=== PATIENT | male | born 1965 | race Caucasian/White ===

== ENCOUNTER → 2016-05-05 | Outpatient (CLI) | payer MEDICARE, OTHER ==
[2016-05-05 09:29] LABS: Basophils % (A) 1 %; CHCM 32.6; Eosinophils # (A) 0.1 k/uL (0-0.7); Eosinophils % (A) 1 %; HCT 46.6 % (39.0-53.0); HDW 2.54; HGB 15.1 gm/dL (13.0-17.5); Luc # (Auto) 0.14; Luc % (Auto) 2; Lymphocytes # (A) 1.9 k/uL (1.0-4.8); Lymphocytes % (A) 33 %; MCH 30.9 pg (25.0-35.0); MCHC 32.3 g/dL (31.0-37.0); MCV 95.6 fL (80.0-100.0); Mean Platelet Volume 6.9; Monocytes # (A) 0.4 k/uL (0-1.0); Monocytes % (A) 7 %; Neutrophils # (A) 3.2 k/uL (1.3-7.7); Neutrophils % (A) 56 %; RBC 4.87 m/uL (4.30-5.90); WBC 5.7 k/uL (3.8-10.6); WBC (Perox) 6.02
[2016-05-05 10:12] LABS: Bilirubin, Delta 0.2 mg/dL (0.0-0.2); Total Bilirubin 0.5 mg/dL (0.2-1.3); Total Protein 7.4 g/dL (6.3-8.2)
[2016-05-05 12:14] LABS: Hemoglobin A1C 4.8 % (4.2-6.1)
== END | disposition home or self-care (01) ==
LOC: LABWHC1 09:03
PROVIDERS: ATTEND Psychiatry & Neurology Psychiatry
DX: T50.905A Adverse effect of unspecified drugs, medicaments and biological substances, initial encounter (principal)
CPT/HCPCS: 36415; 80061; 80076; 80164; 83036; 85025

== ENCOUNTER 2018-03-25 12:16 | Day surgery (SDC) | payer MEDICARE, OTHER ==
[2018-03-21 11:03] VITALS: BMI 23.8
[~2018-03-25 12:16] MED LIST: LACTATED RINGERS 1,000 ML IV SCH; LIDOCAINE 1% 20 ML VIAL (10MG/ML) FOR IV START INTRADERMA PRN
[2018-03-25 12:45] VITALS: RESP 16; TEMP 98
[2018-03-25] MEDS ORDERED: LIDOCAINE 1% 20 ML VIAL (10MG/ML) FOR IV START INTRADERMA ONE (12:53)
[2018-03-25] MEDS ORDERED: PROPOFOL 10 MG/ML 20 ML VIAL IV ONE (13:07)
[2018-03-25] MEDS ORDERED: LIDOCAINE 1% INJ 10MG/ML (20 ML MDV) ONE (13:07)
--- NOTE | 2018-03-25 14:00 | P.PCN ---
Date of Procedure: 03/25/18 Procedure(s) Performed: Procedures: 1. Esophagogastroduodenoscopy and biopsy. 2. Colonoscopy and polypectomy. Preoperative diagnosis: Epigastric pain and weight loss and screening for colon cancer. Postoperative diagnosis: 1. Hiatal hernia and short segments of Bear's esophagus. 2. Mild gastritis and duodenitis. 3. Mild sigmoid diverticulosis. 4. Proximal sigmoid polyp snared but no large polyps or cancer. Preparation: HalfLytely prep. Sedation: Was provided by anesthesia. Brief clinical history: The patient is a 52-year-old male with history of mental disadvantage and seizure disorder is scheduled for this evaluation because of epigastric pain and weight loss as well as for colon cancer screening age being his risk factor. Procedure: With the patient on his left lateral decubitus position and after informed consent and adequate sedation, I passed a Olympus-GIF H190 video upper endoscope through the cricopharyngeus down the esophagus. GE junction was irregular and started at around 38 cm from the incisors and the tubular esophagus continued for another 2 cm or so. Proximal to the GE junction there was no evidence of esophagitis. There were no strictures. There was a 1-2 cm hiatal hernia then the endoscope was advanced into the stomach which was insufflated with air and inspected in detail including the retroflex view in the cardia. There was some mottling and erythema in the antrum but no ulcers or erosions. Pyloric channel did not show any ulcers. Duodenal bulb, post bulbar area and descending duodenum showed some erythema but there were no ulcers, erosions or bleeding. Because of his symptoms, I obtained biopsies from the duodenum, antrum and esophagus including, in a separate container, the segment of Bear's esophagus to rule out dysplasia. The endoscope was then withdrawn and I proceeded to perform the colonoscopy. Perianal area did not show any fissures or fistulas. There were no masses felt on digital rectal examination. The Olympus CFH 190L video colonoscope was then inserted in the rectum in the usual fashion and advanced to the cecum. There were a few diverticular orifices seen scattered in the sigmoid but I saw no evidence of acute diverticulitis or strictures. In the proximal sigmoid there was a 1-1.5 cm polyp which I snared and retrieved by suction, but there were no large polyps or cancer. I retroflexed the endoscope in the rectum before the endoscope was withdrawn. The patient tolerated the procedure well. Plan: The patient and his sister who is his legal guardian with reassured. Will await pathology results. I anticipate repeating his upper endoscopy 2-3 years and anticipate repeating his colonoscopy in 3-5 years. He will follow up with you as planned.
[2018-03-25 14:47] VITALS: BP 147/89; PULSE 74
== END 2018-03-25 15:14 | disposition home or self-care (01) ==
LOC: ORWHC2ENDO 12:16 → EEVIPCON 12:25 → ORWHC2ENDO 15:14
DX: Z12.11 Encounter for screening for malignant neoplasm of colon (principal); K29.50 Unspecified chronic gastritis without bleeding; K22.70 Barrett's esophagus without dysplasia; D12.5 Benign neoplasm of sigmoid colon; K44.9 Diaphragmatic hernia without obstruction or gangrene; K29.80 Duodenitis without bleeding; K57.30 Diverticulosis of large intestine without perforation or abscess without bleeding; F79 Unspecified intellectual disabilities; G40.909 Epilepsy, unspecified, not intractable, without status epilepticus; F41.9 Anxiety disorder, unspecified; Z79.899 Other long term (current) drug therapy
CPT/HCPCS: 88305; 45385; 43239; J2001; J2704

== ENCOUNTER → 2018-06-26 | Outpatient (CLI) | payer MEDICARE, OTHER | END | disposition home or self-care (01) | LOC: LABWHC1 15:29 | PROVIDERS: ATTEND Family Medicine | DX: G40.909 Epilepsy, unspecified, not intractable, without status epilepticus (principal); R63.4 Abnormal weight loss | CPT/HCPCS: 36415; 80186 ==

== ENCOUNTER → 2018-12-26 | Outpatient (CLI) | payer MEDICARE, OTHER ==
[2018-12-26 09:09] LABS: Basophils % (A) 0 %; Eosinophils # (A) 0.1 k/uL (0-0.7); Eosinophils % (A) 2 %; HCT 47.1 % (39.0-53.0); HGB 15.5 gm/dL (13.0-17.5); Lymphocytes # (A) 1.7 k/uL (1.0-4.8); Lymphocytes % (A) 31 %; MCH 31.5 pg (25.0-35.0); MCHC 32.8 g/dL (31.0-37.0); MCV 96.1 fL (80.0-100.0); Mean Platelet Volume 5.7; Monocytes # (A) 0.4 k/uL (0-1.0); Monocytes % (A) 8 %; Neutrophils # (A) 3.1 k/uL (1.3-7.7); Neutrophils % (A) 57 %; Platelet Count 207 k/uL (150-450); RDW 12.9 % (11.5-15.5); WBC 5.4 k/uL (3.8-10.6)
[2018-12-26 16:56] LABS: ALT 34 U/L (10-49); AST 25 U/L (14-35); African American GFR (CKD) 99.1 (60.0-200.0); Albumin/Globulin Ratio 1.56 (1.60-3.17); Alkaline Phosphatase 114 U/L (41-126); Bilirubin, Conjugated <0.20 mg/dL (0.20-0.40); Chol/HDL Ratio 3.42; Cholesterol 195 mg/dL (0-200); Globulin 2.7 g/dL (1.6-3.3); Glucose 86 mg/dL (70-110); LDL Cholesterol,Calculated 122.4 mg/dL (0.0-131.0); Total Bilirubin 0.4 mg/dL (0.2-1.2); Total Protein 6.9 g/dL (6.2-8.2)
[2018-12-26 18:09] LABS: Hemoglobin A1C 4.7 % (4.0-6.0)
== END ==
LOC: LABWHC1 08:15
PROVIDERS: ATTEND Nurse Practitioner Family
DX: Z51.81 Encounter for therapeutic drug level monitoring (principal); Z79.899 Other long term (current) drug therapy
CPT/HCPCS: 36415; 80061; 80076; 80164; 82565; 82947; 83036; 84439; 84443; 84520; 85025

== ENCOUNTER 2019-04-01 22:51 | Emergency (ER) | payer MEDICARE, OTHER ==
[2019-04-01 23:07] VITALS: BP 121/85
--- NOTE | 2019-04-01 23:37 | XR ---
EXAMINATION TYPE: XR chest 2V DATE OF EXAM: 04/01/2019 COMPARISON: NONE HISTORY: Cough and fever TECHNIQUE: FINDINGS: Heart and mediastinum are normal. Lungs are clear. Diaphragm is normal. Bony thorax is inta ct. There is no sign of pleural effusion. IMPRESSION: No active cardiopulmonary disease. Normal heart.
--- NOTE | 2019-04-02 00:49 | ED ---
Fever HPI - General Chief Complaint: Fever Stated Complaint: Fever, URI Time Seen by Provider: 04/02/19 00:46 Source: patient, family Mode of arrival: ambulatory Limitations: no limitations, physical limitation - History of Present Illness Initial Comments: This patient's 53-year-old man who presents to be evaluated for nonproductive cough and fever that is been going on for approximately one day. History is from both the patient and his sister. The patient does live in an [facility] home, and staff there noted that over the past day he had been developing persistent nonproductive cough, as well as having fevers. The patient has had multiple sick contacts. Patient denies dyspnea, chest pain, head or neck pain. No vomiting or change in bowel movements or urination. MD Complaint: fever, other (Cough) Onset/Timin -: days(s) Temperature Source: oral Context: sick contacts Associated Symptoms: cough Treatments Prior to Arrival: none - Related Data Home Medications Medication Instructions Recorded Confirmed Divalproex [Depakote] 1,000 mg PO HS 07/22/14 03/21/18 Fesoterodine Fumarate [Toviaz] 8 mg PO DAILY 07/22/14 03/21/18 Phenytoin Sodium Extended 100 mg PO MOTUTHSA 07/22/14 03/21/18 [Dilantin] Phenytoin Sodium Extended 100 mg PO SUWEFR 07/22/14 03/21/18 [Dilantin] Propranolol [Inderal] 20 mg PO BID 07/22/14 03/21/18 Cetirizine HCl [Zyrtec] 10 mg PO DAILY 03/21/18 03/21/18 Divalproex Sodium [Depakote] 750 mg PO QAM 03/21/18 03/21/18 Fluticasone Nasal [place] [Flonase 2 spr EA NOSTRIL DAILY 03/21/18 03/21/18 Nasal [place]] Ziprasidone [Geodon] 60 mg PO BID 03/21/18 03/21/18 Omeprazole 40 mg PO DAILY 03/25/18 03/25/18 Previous Rx's Medication Instructions Recorded Oseltamivir [Tamiflu] 75 mg PO Q12HR #10 cap 04/02/19 Allergies Allergy/AdvReac Type Severity Reaction Status Date / Time No Known Allergies Allergy Verified 04/01/19 23:07 Review of Systems ROS Statement: Those systems with pertinent positive or pertinent negative responses have been documented in the HPI. ROS Other: All systems not noted in ROS Statement are negative. Constitutional: Reports: fever ENT: Denies: ear pain Respiratory: Reports: cough. Denies: dyspnea, wheezes Cardiovascular: Denies: chest pain, syncope Gastrointestinal: Denies: abdominal pain, nausea, vomiting, diarrhea Genitourinary: Denies: dysuria Musculoskeletal: Denies: back pain Skin: Denies: rash Neurological: Denies: headache Past Medical History Past Medical History: Seizure Disorder Additional Past Medical History / Comment(s): LAST KNOWN GRAND MAL SEIZURE 1999- SISTER STATES PT HAS "ABSENT SEIZURES". MENTALLY CHALLENGED History of Any Multi-Drug Resistant Organisms: None Reported Past Surgical History: Hernia Repair Additional Past Surgical History / Comment(s): EGD. BILAT CATARACT SX Past Anesthesia/Blood Transfusion Reactions: No Reported Reaction Past Psychological History: Anxiety Smoking Status: Never smoker Past Alcohol Use History: None Reported Past Drug Use History: None Reported - Past Family History Father Family Medical History: Cancer Mother Family Medical History: Cancer General Exam Limitations: no limitations, physical limitation General appearance: alert, in no apparent distress Head exam: Present: atraumatic, normocephalic Eye exam: Present: normal appearance, conjunctival injection. Absent: scleral icterus ENT exam: Present: normal oropharynx Neck exam: Present: full ROM. Absent: meningismus Respiratory exam: Present: normal lung sounds bilaterally. Absent: respiratory distress, wheezes, rales, rhonchi, stridor Cardiovascular Exam: Present: regular rate, normal rhythm, normal heart sounds. Absent: systolic murmur, diastolic murmur, rubs, gallop GI/Abdominal exam: Present: soft. Absent: distended, tenderness, guarding, rebound, rigid Extremities exam: Present: normal inspection, normal capillary refill. Absent: pedal edema Neurological exam: Present: alert Skin exam: Present: warm, dry, intact, normal color. Absent: rash Course Vital Signs 04/01/19 23:02 Temperature 99.4 F Pulse Rate 103 H Respiratory 26 H Rate Blood Pressure 121/85 Medical Decision Making - Lab Data Lab Results 04/01/19 Range/Units 23:01 Influenza Type A RNA Detected H (Not Detectd) Influenza Type B (PCR) Not Detected (Not Detectd) Disposition Clinical Impression: Influenza Disposition: HOME SELF-CARE Condition: Good Instructions (If sedation given, give patient instructions): Influenza (ED) Prescriptions: Oseltamivir [Tamiflu] 75 mg PO Q12HR #10 cap Is patient prescribed a controlled substance at d/c from ED?: No Referrals: Frida Quintanilla DO [Primary Care Provider] - 1-2 days
[2019-04-02 01:30] VITALS: PULSE 88; RESP 20; TEMP 101.8
[2019-04-02] MEDS: OSELTAMIVIR 75 MG CAP PO STA ×2 (01:33→01:34)
== END 2019-04-02 01:47 | disposition home or self-care (01) ==
LOC: EC 22:51
DX: J11.1 Influenza due to unidentified influenza virus with other respiratory manifestations (principal); G40.909 Epilepsy, unspecified, not intractable, without status epilepticus; F41.9 Anxiety disorder, unspecified; Z79.899 Other long term (current) drug therapy; Z20.9 Contact with and (suspected) exposure to unspecified communicable disease
CPT/HCPCS: 71046; 87502; 99283

== ENCOUNTER → 2019-09-18 | Outpatient (CLI) | payer MEDICARE, OTHER ==
[2019-09-18 10:00] LABS: Basophils % (A) 1 %; Eosinophils # (A) 0.2 k/uL (0-0.7); Eosinophils % (A) 3 %; HGB 15.1 gm/dL (13.0-17.5); Lymphocytes # (A) 1.7 k/uL (1.0-4.8); Lymphocytes % (A) 28 %; MCH 31.1 pg (25.0-35.0); Mean Platelet Volume 7.2; Monocytes # (A) 0.4 k/uL (0-1.0); Monocytes % (A) 6 %; Neutrophils # (A) 3.7 k/uL (1.3-7.7); Neutrophils % (A) 61 %; Platelet Count 204 k/uL (150-450); RBC 4.85 m/uL (4.30-5.90); RDW 12.8 % (11.5-15.5); WBC 6.1 k/uL (3.8-10.6)
[2019-09-18 16:35] LABS: ALT 34 U/L (10-49); AST 21 U/L (14-35); Albumin/Globulin Ratio 1.43 (1.60-3.17); Alkaline Phosphatase 102 U/L (41-126); Bilirubin, Conjugated <0.20 mg/dL (0.20-0.40); Chol/HDL Ratio 3.51; Cholesterol 193 mg/dL (0-200); Glucose 81 mg/dL (70-110); LDL Cholesterol,Calculated 122.2 mg/dL (0.0-131.0); Total Bilirubin 0.4 mg/dL (0.2-1.2); Total Protein 7.3 g/dL (6.2-8.2)
[2019-09-18 18:03] LABS: Phenytoin (Dilantin) 16.7 ug/mL (10.0-20.0)
[2019-09-18 18:59] LABS: Hemoglobin A1C 4.8 % (4.0-6.0)
== END | disposition home or self-care (01) ==
LOC: LABWHC1 08:47
PROVIDERS: ATTEND Nurse Practitioner Family
DX: G40.909 Epilepsy, unspecified, not intractable, without status epilepticus (principal)
CPT/HCPCS: 36415; 80061; 80076; 80185; 82947; 83036; 84439; 84443; 85025

== ENCOUNTER 2020-02-10 11:31 | Inpatient (IN) | payer MEDICARE, OTHER ==
[2020-02-10] MEDS ORDERED: SODIUM CHLORIDE 0.9% 1,000 ML IV STA (11:44)
[2020-02-10] MEDS ORDERED: ACETAMINOPHEN TAB 500 MG TAB PO STA (11:45)
[2020-02-10] MEDS ORDERED: SODIUM CHLORIDE 0.9% 500 ML 500 ML IV ONE (11:47)
[2020-02-10 11:57] LABS: Basophils % (A) 0 %; Eosinophils # (A) 0.1 k/uL (0-0.7); Eosinophils % (A) 1 %; HCT 41.7 % (39.0-53.0); HGB 13.5 gm/dL (13.0-17.5); Lymphocytes # (A) 1.1 k/uL (1.0-4.8); Lymphocytes % (A) 10 %; MCH 30.7 pg (25.0-35.0); MCHC 32.4 g/dL (31.0-37.0); MCV 94.8 fL (80.0-100.0); Mean Platelet Volume 7.8; Monocytes # (A) 0.7 k/uL (0-1.0); Monocytes % (A) 6 %; Neutrophils # (A) 8.8 k/uL (1.3-7.7); Neutrophils % (A) 82 %; Platelet Count 192 k/uL (150-450); RDW 12.7 % (11.5-15.5); WBC 10.8 k/uL (3.8-10.6)
--- NOTE | 2020-02-10 12:03 | ED ---
General Adult HPI - General Chief complaint: Nausea/Vomiting/Diarrhea Stated complaint: nausea/vomitting Time Seen by Provider: 02/10/20 11:33 Source: patient, EMS, RN notes reviewed Mode of arrival: EMS Limitations: no limitations - History of Present Illness Initial comments: This a 54-year-old male presents emergency Department via EMS chief complaint abdominal pain, fever. Patient states he has not follow-up last several days. Patient reports pain in different areas reports pain in his lower abdomen to me, pain in his upper abdomen, chest region to nurse and other staff. Patient denies chest pain upon questioning patient does admit to some nausea. Patient reportedly had cold-like 2 weeks ago denies any chest pain or shortness of breath currently. Has not taken anything for his fever. Patient states she just feels sick to his stomach. Patient feels dehydrated. - Related Data Home Medications Medication Instructions Recorded Confirmed Phenytoin Sodium Extended 200 mg PO HS@2200 07/22/14 02/10/20 [Dilantin] Propranolol [Inderal] 20 mg PO BID@0630,2200 07/22/14 02/10/20 Benztropine Mesylate [Cogentin] 0.5 mg PO BID@0630,2200 02/10/20 02/10/20 Cimetidine [Tagamet] 400 mg PO BID@0630,2200 02/10/20 02/10/20 Divalproex [Depakote] 1,000 mg PO HS@2200 02/10/20 02/10/20 Divalproex [Depakote] 500 mg PO DAILY@0630 02/10/20 02/10/20 Ziprasidone HCl [Geodon] 20 mg PO DAILY@0630 02/10/20 02/10/20 Ziprasidone [Geodon] 40 mg PO HS@2200 02/10/20 02/10/20 Allergies Allergy/AdvReac Type Severity Reaction Status Date / Time No Known Allergies Allergy Verified 02/10/20 11:36 Review of Systems ROS Statement: Those systems with pertinent positive or pertinent negative responses have been documented in the HPI. ROS Other: All systems not noted in ROS Statement are negative. Past Medical History Past Medical History: Seizure Disorder Additional Past Medical History / Comment(s): LAST KNOWN GRAND MAL SEIZURE 1999- SISTER STATES PT HAS "ABSENT SEIZURES". MENTALLY CHALLENGED History of Any Multi-Drug Resistant Organisms: None Reported Past Surgical History: Hernia Repair Additional Past Surgical History / Comment(s): EGD. BILAT CATARACT SX Past Anesthesia/Blood Transfusion Reactions: No Reported Reaction Past Psychological History: Anxiety Smoking Status: Never smoker Past Alcohol Use History: None Reported Past Drug Use History: None Reported - Past Family History Father Family Medical History: Cancer Mother Family Medical History: Cancer General Exam Limitations: no limitations General appearance: alert, in no apparent distress Head exam: Present: atraumatic, normocephalic, normal inspection Eye exam: Present: normal appearance, PERRL, EOMI. Absent: scleral icterus, conjunctival injection, periorbital swelling ENT exam: Present: normal exam, normal oropharynx, mucous membranes moist Neck exam: Present: normal inspection, full ROM. Absent: tenderness, meningismus, lymphadenopathy Respiratory exam: Present: normal lung sounds bilaterally. Absent: respiratory distress, wheezes, rales, rhonchi, stridor Cardiovascular Exam: Present: normal rhythm, tachycardia, normal heart sounds. Absent: systolic murmur, diastolic murmur, rubs, gallop, clicks GI/Abdominal exam: Present: soft, tenderness (Lower abdominal tenderness), normal bowel sounds. Absent: distended, guarding, rebound, rigid Back exam: Absent: CVA tenderness (R), CVA tenderness (L) Neurological exam: Present: alert Skin exam: Present: warm, dry, intact, normal color. Absent: rash Course Vital Signs 02/10/20 02/10/20 11:33 12:59 Temperature 100.9 F H Pulse Rate 123 H 108 H Respiratory 18 18 Rate Blood Pressure 112/95 103/81 O2 Sat by Pulse 100 100 Oximetry Medical Decision Making - Medical Decision Making 54-year-old presented for multiple complaints. Patient's found afebrile, mild lactic acidosis. Patient did have CT on pelvis which showed some pericholeCystic fluid. Otherwise no definite abdominal infection, there is some masslike area on his CT of his lung which is related to his: 19 normal have repeat imaging after treatment. Patient did have an NSTEMI. Patient was started on heparin. Patient will be admitted to hospitals consult to cardiology, surgery. - Lab Data Result diagrams: 02/10/20 11:48 02/10/20 11:48 Lab Results 12/02/10/20 02/10/20 Range/Units 11:48 11:48 11:48 WBC 10.8 H (3.8-10.6) k/uL RBC 4.40 (4.30-5.90) m/uL Hgb 13.5 (13.0-17.5) gm/dL Hct 41.7 (39.0-53.0) % MCV 94.8 (80.0-100.0) fL MCH 30.7 (25.0-35.0) pg MCHC 32.4 (31.0-37.0) g/dL RDW 12.7 (11.5-15.5) % Plt Count 192 (150-450) k/uL MPV 7.8 Neutrophils % 82 % Lymphocytes % 10 % Monocytes % 6 % Eosinophils % 1 % Basophils % 0 % Neutrophils # 8.8 H (1.3-7.7) k/uL Lymphocytes # 1.1 (1.0-4.8) k/uL Monocytes # 0.7 (0-1.0) k/uL Eosinophils # 0.1 (0-0.7) k/uL Basophils # 0.0 (0-0.2) k/uL Sodium 141 (137-145) mmol/L Potassium 5.9 H (3.5-5.1) mmol/L Chloride 108 H (98-107) mmol/L Carbon Dioxide 24 (22-30) mmol/L Anion Gap 9 mmol/L BUN 31 H (9-20) mg/dL Creatinine 1.51 H (0.66-1.25) mg/dL Est GFR (CKD-EPI)AfAm 60 (>60 ml/min/1.73 sqM) Est GFR (CKD-EPI)NonAf 52 (>60 ml/min/1.73 sqM) Glucose 132 H (74-99) mg/dL Plasma Lactic Acid Ej 3.2 H* (0.7-2.0) mmol/L Calcium 9.0 (8.4-10.2) mg/dL Total Bilirubin 0.8 (0.2-1.3) mg/dL AST 198 H (17-59) U/L ALT 131 H (4-49) U/L Alkaline Phosphatase 117 (38-126) U/L Troponin I (0.000-0.034) ng/mL Total Protein 7.6 (6.3-8.2) g/dL Albumin 3.7 (3.5-5.0) g/dL Amylase 101 (30-110) U/L Lipase 87 (23-300) U/L 02/10/20 Range/Units 11:48 WBC (3.8-10.6) k/uL RBC (4.30-5.90) m/uL Hgb (13.0-17.5) gm/dL Hct (39.0-53.0) % MCV (80.0-100.0) fL MCH (25.0-35.0) pg MCHC (31.0-37.0) g/dL RDW (11.5-15.5) % Plt Count (150-450) k/uL MPV Neutrophils % % Lymphocytes % % Monocytes % % Eosinophils % % Basophils % % Neutrophils # (1.3-7.7) k/uL Lymphocytes # (1.0-4.8) k/uL Monocytes # (0-1.0) k/uL Eosinophils # (0-0.7) k/uL Basophils # (0-0.2) k/uL Sodium (137-145) mmol/L Potassium (3.5-5.1) mmol/L Chloride (98-107) mmol/L Carbon Dioxide (22-30) mmol/L Anion Gap mmol/L BUN (9-20) mg/dL Creatinine (0.66-1.25) mg/dL Est GFR (CKD-EPI)AfAm (>60 ml/min/1.73 sqM) Est GFR (CKD-EPI)NonAf (>60 ml/min/1.73 sqM) Glucose (74-99) mg/dL Plasma Lactic Acid Ej (0.7-2.0) mmol/L Calcium (8.4-10.2) mg/dL Total Bilirubin (0.2-1.3) mg/dL AST (17-59) U/L ALT (4-49) U/L Alkaline Phosphatase (38-126) U/L Troponin I 1.050 H* (0.000-0.034) ng/mL Total Protein (6.3-8.2) g/dL Albumin (3.5-5.0) g/dL Amylase (30-110) U/L Lipase (23-300) U/L Critical Care Time Critical Care Time: Yes Total Critical Care Time: 35 Critical Care Time: Total 35 minutes of critical care time were used initially evaluated patient, reviewed past for questionable ring labs, EKG, chest x-ray, CT abdomen pelvis. Case discussed with admitting physician. Patient does have a troponin/ NSTEMI. Patient was started on heparin, given aspirin. Patient will be admitted for cardiology evaluation, echocardiogram. Patient does have some abdominal tende rness, fever and leukocytosis with lactic acidosis. Patient heart consultation surgery. Patient is moderate dehydrated was given IV fluid bolus of be continued on maintenance fluids Disposition Clinical Impression: NSTEMI (non-ST elevated myocardial infarction), Dehydration, Abdominal pain, Lactic acidosis, FAINA (acute kidney injury) Disposition: ADMITTED IP TO THIS HOSP Condition: Fair Referrals: Frida Quintanilla DO [Primary Care Provider] - 1-2 days Time of Disposition: 13:18
[2020-02-10 12:07] LABS: Albumin 3.7 g/dL (3.5-5.0); Potassium 5.9 mmol/L (3.5-5.1); Total Bilirubin 0.8 mg/dL (0.2-1.3); Total Protein 7.6 g/dL (6.3-8.2)
--- NOTE | 2020-02-10 12:40 | XR ---
EXAMINATION TYPE: XR chest 2V DATE OF EXAM: 02/10/2020 COMPARISON: Chest x-ray April 01, 2019 HISTORY: Fever. TECHNIQUE: Frontal and lateral views of the chest are obtained. FINDINGS: Diminished inspiration on current study. There is chronic parenchymal changes without susp icious new focal air space opacity, pleural effusion, or pneumothorax seen. The cardiac silhouette s ize is upper limits of normal currently. The osseous structures are intact. IMPRESSION: No acute cardiopulmonary process.
--- NOTE | 2020-02-10 13:10 | CT ---
EXAMINATION TYPE: CT abdomen pelvis w con DATE OF EXAM: 02/10/2020 COMPARISON: None. HISTORY: Generalized abdominal pain, nausea, vomiting, & fever CT DLP: 957.5 mGycm, Automated Exposure Control for Dose Reduction was Utilized. CONTRAST: CT scan of the abdomen and pelvis is performed without oral but with IV Contrast, patient injected wi th 100 mL of Isovue 300. FINDINGS: LUNG BASES: Tiny bilateral pleural effusions. Associated posterior right basilar atelectasis and/or c onsolidation axial image 6. Suspicious heterogeneous 3.0 x 1.7 cm lateral left basilar elongated bernie pheral mass axial image 5. LIVER/GB: Focal moderate surrounding pericholecystic fluid. Occasional tiny hypodense focus left hepa tic lobe presumed benign. PANCREAS: No significant abnormality is seen. SPLEEN: No significant abnormality is seen. ADRENALS: No significant abnormality is seen. KIDNEYS: Symmetric cortical medullary uptake and excretion with scattered small simple appearing thin -walled cysts bilaterally. No hydronephrosis noted bilaterally. BOWEL: Suboptimal evaluation without enteric contrast. No suspicious small or large bowel dilatation. There is a focal thecal prominence in the sigmoid rectal colon noted. PROSTATE/SEMINAL VESICLES: Prostate gland measures upper limits of normal in size. LYMPH NODES: No greater than 1cm abdominal or pelvic lymph nodes are appreciated. OSSEOUS STRUCTURES: Fairly moderate multilevel spurring in the spine. Disc herniation L3-L4 level eff aces the anterior thecal sac. Moderate axial joint space loss in both hips. Facet arthropathy lower l umbar spine. OTHER: No significant additional abnormality is seen. IMPRESSION: 1. No bowel obstruction. Moderate distal colonic fecal stasis. 2. Pericholecystic fluid is present. Consider ultrasound evaluation for gallstones and/or possible ac [place] cholecystitis. 3. Heterogeneous left basilar mass or masslike consolidation. Follow-up is advised to rule out neopla sm after treatment of suspected covid 19 infection.
[2020-02-10] MEDS ORDERED: HEPARIN SODIUM,PORCINE 5,000 UNIT/ML 1 ML VIAL IV ONE (13:11)
[2020-02-10] MEDS ORDERED: ASPIRIN 81 MG PO STA (13:14)
[2020-02-10] MEDS ORDERED: NITROGLYCERIN SL TABS 0.4 MG TAB SUBLINGUAL PRN (13:14)
[2020-02-10] MEDS: HEPARIN SOD,PORK IN 0.45% NACL 25,000 UNIT in 0.45% NACL 1 250ML.BAG IV SCH (13:30)
[2020-02-10] MEDS ORDERED: HYDROmorphone 0.5 MG/0.5 ML SYRINGE IVP PRN (16:23)
[2020-02-10 17:04] LABS: Partial Thromboplastin Time 65.4 sec (22.0-30.0)
--- NOTE | 2020-02-10 18:00 | ECHOF ---
Referral Reason:NSTEMI MEASUREMENTS -------- HEIGHT: 167.6 cm WEIGHT: 70.8 kg BP: 103/81 IVSd: 1.2 cm (0.6 - 1.1) LVIDd: 2.3 cm (3.9 - 5.3) LVPWd: 1.2 cm (0.6 - 1.1) IVSs: 1.7 cm LVIDs: 1.7 cm LVPWs: 1.8 cm RVIDd: 4.3 cm (< 3.3) LAESV Index (A-L): 8.37 ml/m Ao Diam: 3.5 cm (2.0 - 3.7) AV Cusp: 2.0 cm (1.5 - 2.6) EPSS: 0.2 cm MV E Shyam: 0.59 m/s MV DecT: 111 ms MV A Shyam: 0.61 m/s MV E/A Ratio: 0.96 RAP: 5.00 mmHg RVSP: 30.89 mmHg MV EF SLOPE: 61.55 mm/s (70 - 150) MV EXCURSION: 14.76 mm (> 18.000) FINDINGS -------- Sinus rhythm. This was a technically difficult study with suboptimal apical views. The left ventricular size is normal. There is mild concentric left ventricular hypertrophy. Overa ll left ventricular systolic function is normal with, an EF between 55 - 60 %. The right ventricle is severely enlarged. Moderator band is visualized in the right ventricular ape x. Trabeculae seen in RV. Normal LA size by volume 22+/-6 ml/m2. The right atrium is moderately enlarged. Interatrial and interventricular septum intact. There is no evidence of aortic regurgitation. There is no evidence of aortic stenosis. MOBILE MASS seen on TV Leaflets. No mitral regurgitation. Mild tricuspid regurgitation present. There is borderline pulmonary artery hypertension. The righ t ventricular systolic pressure, as measured by Doppler, is 30.89mmHg. There is no pulmonic regurgitation present. The aortic root size is normal. IVC Not well visulized. There is no pericardial effusion. 5.0mg of Lumason was utilized for enhancement of images CONCLUSIONS -------- 1. The left ventricular size is normal. 2. There is mild concentric left ventricular hypertrophy. 3. Overall left ventricular systolic function is normal with, an EF between 55 - 60 %. 4. The right ventricle is severely enlarged. 5. Moderator band is visualized in the right ventricular apex. 6. Trabeculae seen in RV. 7. The right atrium is moderately enlarged. 8. Vegetation seen on TV Leaflets. 9. Mild tricuspid regurgitation present. SHOEMAKING CUTTER: Johanna Gorman RDCS
--- NOTE | 2020-02-10 18:02 | HP ---
HISTORY AND PHYSICAL CHIEF COMPLAINTS: Abdominal pain, fever and chest pain. HISTORY OF PRESENT ILLNESS: This 54-year-old gentleman with a past medical history of multiple medical problems, including seizure disorder, history of absence seizure, history of hernia repair, EGD, being followed by Dr. Quintanilla in the outpatient setting, was apparently living in a senior living setting. The patient was complaining of back pain, chest pain and abdominal pain. The patient was apparently reported to have COVID about 2 weeks ago. The exact details are unknown at this time. Because of multiple symptomatology, the patient came to [facility] and was admitted for further evaluation and treatment. The COVID test is negative. Troponin was found to be 1.05 and 1.200. Lactic acid elevated up to 3.2. The D-dimer was 25.28. A CT angio is pending at this time. CT scan of the abdomen and pelvis was also done which showed some pericholecystic fluid, and heterogeneous left basilar mass or masslike consolidation was also noted. Again the patient was admitted for further evaluation and treatment. A chest x-ray which was reviewed personally by me showed increased bronchovascular markings. At this time the patient has some incessant cough. There is no history of any rigors. No history of headache, loss of consciousness, seizures. PAST MEDICAL HISTORY: History of seizure disorder, history of grand mal seizure, hernia repair, EGD. MEDICATIONS: Home medications are ranitidine 150 mg p.o. b.i.d., Tagamet, Dilantin, Inderal, Geodon, Cogentin, Depakote. ALLERGIES: NONE. FAMILY HISTORY: History of cancer in the family. SOCIAL HISTORY: No history of smoking. No history of alcohol intake. REVIEW OF SYSTEMS: ENT: No diminished hearing. No diminished vision. CARDIOVASCULAR SYSTEM: No angina, palpitations. RESPIRATORY SYSTEM: As mentioned earlier. GI: As mentioned earlier. : No dysuria or retention. NERVOUS SYSTEM: No numbness, weakness. ALLERGY/IMMUNOLOGY: No asthma, hayfever. MUSCULOSKELETAL: As mentioned earlier. HEMATOLOGY/ONCOLOGY: No history of anemia. ENDOCRINE: No history of diabetes, hypothyroidism. CONSTITUTIONAL: As mentioned earlier. DERMATOLOGY: Negative. RHEUMATOLOGY: Negative. PSYCHIATRY: As mentioned earlier. NEUROLOGY: As mentioned earlier. PHYSICAL EXAMINATION: Patient alert and oriented x2. Pulse 108, blood pressure 103/81, respiration 18, temperature 99.2, T-max 100.9, pulse ox 100% on room air. HEENT: Conjunctivae normal. NECK: No jugular venous distention. CARDIOVASCULAR SYSTEM: S1, S2 muffled. RESPIRATORY SYSTEM: Breath sounds diminished at the bases. A few scattered rhonchi and crackles. ABDOMEN: Soft, non-tender. LEGS: No edema. No swelling. NERVOUS SYSTEM: Higher functions as mentioned earlier. Moves all 4 limbs. No focal motor or sensory deficit. LYMPHATICS: No lymph node palpable in neck, axillae or groin. SKIN: No ulcer, rash, bleeding. JOINTS: No active deforming arthropathy. LABS: WBC 10.8 and potassium 5.9. Creatinine is 1.51. The baseline creatinine is normal. Otherwise, plasma lactic acid 3.2. Troponin 1.0050. ASSESSMENT: 1. Chest pain with elevated troponin, possible acute oba-[id number]-elevation myocardial infarction. 2. Acute COVID-19 infection with possibly COVID pneumonia. 3. Elevated creatinine with acute renal failure, acute tubular necrosis. 4. Hyperkalemia secondary to renal failure. 5. Elevated D-dimer. 6. Increased white count. 7. History of seizure disorder. 8. History of absence seizure. 9. History of hernia repair. 10.History of esophagogastroduodenoscopy. 11.History of anxiety. 12.History of being mentally challenged. 13.FULL CODE. RECOMMENDATIONS AND DISCUSSION: In this 54-year-old gentleman who presented with multiple complex medical issues, we will monitor the patient closely, continue the current medications, continue with symptomatic treatment. Antiplatelet agent heparin has been initiated. I would also recommend cardiology consultation as well as infectious disease consultation. Surgery consultation also has been sought because of the abdominal pain and concerns about the pericholecystic fluid. Overall prognosis is extremely guarded because of multiple complex medical issues. The patient might be a candidate for remdesivir. A 2D echo with Doppler has been ordered and I would order a CT angio of the chest and continue to monitor. The prognosis is guarded because of multiple complex medical issues. Further recommendations to follow. A copy of this dictation is being forwarded to Dr. Quintanilla, who is the primary physician. MMODL / IJN: [id number] /
[2020-02-10] MEDS: PANTOPRAZOLE 40 MG TABLET PO SCH (18:08)
[2020-02-10] MEDS: ZINC SULFATE 220 MG CAP PO SCH (18:08)
[2020-02-10] MEDS: SODIUM CHLORIDE 0.9% 1,000 ML IV SCH (18:08)
[2020-02-10 18:59] LABS: Appearance,Urine Cloudy (Clear); Bilirubin,Urine 1+ (Negative); Blood,Urine Trace (Negative); Color,Urine Yellow; Glucose,Urine (UA) Negative (Negative); Hyaline Casts,Urine 3 /lpf (0-2); Ketones,Urine 1+ (Negative); Leukocyte Esterase,Urine Negative (Negative); Mucus,Urine Few /hpf; Nitrite,Urine Negative (Negative); PH, Urine 5.5 (5.0-8.0); Protein,Urine 1+ (Negative); RBC,Urine 8 /hpf (0-5); Squamous Epithelial Cell,Urine 1 /hpf (0-4); WBC,Urine 4 /hpf (0-5)
[2020-02-10 19:16] LABS: Specific Gravity,Urine >1.050 (1.001-1.035)
[2020-02-10] MEDS: ALBUTEROL HFA INHALER INHALATION SCH (20:10)
[2020-02-10] MEDS: DIVALPROEX 500 MG TABLET.DR PO SCH (21:06)
[2020-02-10] MEDS: PHENYTOIN SODIUM EXTENDED 100 MG CAP PO SCH (21:06)
[2020-02-10] MEDS: FAMOTIDINE 20 MG TAB PO SCH (21:06)
[2020-02-10] MEDS: ZIPRASIDONE 40 MG CAP PO SCH (21:07)
[2020-02-10] MEDS: PROPRANOLOL 20 MG TAB PO SCH (21:07)
[2020-02-10] MEDS: BENZTROPINE MESYLATE 0.5 MG TAB PO SCH (21:08)
[2020-02-10] MEDS ORDERED: CIMETIDINE 400 MG PO SCH (22:00)
[2020-02-11] MEDS: DIVALPROEX 500 MG TABLET.DR PO SCH ×2 (06:36→22:05)
[2020-02-11] MEDS: PANTOPRAZOLE 40 MG TABLET PO SCH (06:36)
[2020-02-11] MEDS: BENZTROPINE MESYLATE 0.5 MG TAB PO SCH ×2 (06:36→22:05)
[2020-02-11] MEDS: ZIPRASIDONE 20 MG CAP PO SCH (06:36)
[2020-02-11] MEDS: PROPRANOLOL 20 MG TAB PO SCH (06:36)
[2020-02-11] MEDS: SODIUM CHLORIDE 0.9% 1,000 ML IV SCH ×2 (06:37→22:06)
[2020-02-11 07:42] LABS: Basophils % (A) 0 %; Eosinophils % (A) 0 %; HCT 35.9 % (39.0-53.0); HGB 11.4 gm/dL (13.0-17.5); Lymphocytes # (A) 1.8 k/uL (1.0-4.8); Lymphocytes % (A) 19 %; MCH 30.5 pg (25.0-35.0); MCHC 31.9 g/dL (31.0-37.0); MCV 95.8 fL (80.0-100.0); Mean Platelet Volume 8.3; Monocytes # (A) 0.5 k/uL (0-1.0); Monocytes % (A) 6 %; Neutrophils # (A) 6.8 k/uL (1.3-7.7); Neutrophils % (A) 73 %; Platelet Count 152 k/uL (150-450); RBC 3.74 m/uL (4.30-5.90); RDW 12.8 % (11.5-15.5); WBC 9.3 k/uL (3.8-10.6)
[2020-02-11 07:54] LABS: ALT 209 U/L (4-49); AST 255 U/L (17-59); African American GFR (CKD) >90 (>60 ml/min/1.73 sqM); Albumin 2.8 g/dL (3.5-5.0); Alkaline Phosphatase 85 U/L (38-126); Anion Gap 6 mmol/L; Blood Urea Nitrogen 30 mg/dL (9-20); Calcium 7.9 mg/dL (8.4-10.2); Carbon Dioxide 22 mmol/L (22-30); Chloride 112 mmol/L (98-107); Cholesterol 132 mg/dL (<200); Glucose 123 mg/dL (74-99); HDL Cholesterol 34 mg/dL (40-60); LDL Cholesterol,Calculated 76 mg/dL (0-99); Non-African American GFR(CKD) 82 (>60 ml/min/1.73 sqM); Potassium 4.5 mmol/L (3.5-5.1); Sodium 140 mmol/L (137-145); Total Bilirubin 0.6 mg/dL (0.2-1.3); Total Protein 5.9 g/dL (6.3-8.2); Triglycerides 108 mg/dL (<150)
--- NOTE | 2020-02-11 08:12 | P.GSCN ---
History of Present Illness Consult date: 02/11/20 History of present illness: 54-year-old male is admitted secondary to chest pain, abdominal pain, fever. On workup, he is noted to have elevated troponins with concern for NSTEMI. On workup in the emergency department, CT of the abdomen and pelvis was performed with notable pericholecystic fluid. The patient states that he did have some nausea but that has since resolved. Currently, the patient is eating breakfast and states his abdominal pain is completely resolved. He is on a heparin drip secondary to concern for NSTEMI. He denies any change in bowel function. He has no additional complaints at this time. Review of Systems All systems: negative Past Medical History Past Medical History: Seizure Disorder Additional Past Medical History / Comment(s): LAST KNOWN GRAND MAL SEIZURE 1999- SISTER STATES PT HAS "ABSENT SEIZURES". MENTALLY CHALLENGED History of Any Multi-Drug Resistant Organisms: None Reported Past Surgical History: Hernia Repair Additional Past Surgical History / Comment(s): EGD. BILAT CATARACT SX Past Anesthesia/Blood Transfusion Reactions: No Reported Reaction Past Psychological History: Anxiety Additional Psychological History / Comment(s): MENTALLY CHALLENGED Smoking Status: Never smoker Past Alcohol Use History: None Reported Past Drug Use History: None Reported - Past Family History Father Family Medical History: Cancer Mother Family Medical History: Cancer Medications and Allergies Home Medications Medication Instructions Recorded Confirmed Type Phenytoin Sodium Extended 200 mg PO HS@219907/22/14 02/10/20 History [Dilantin] Propranolol [Inderal] 20 mg PO BID@30,219907/22/14 02/10/20 History Benztropine Mesylate [Cogentin] 0.5 mg PO BID@629,219902/10/20 02/10/20 History Cimetidine [Tagamet] 400 mg PO BID@0630,219902/10/20 02/10/20 History Divalproex [Depakote] 1,000 mg PO HS@219902/10/20 02/10/20 History Divalproex [Depakote] 500 mg PO DAILY@62902/10/20 02/10/20 History Ranitidine HCl 150 mg PO BID 02/10/20 02/10/20 History Ziprasidone HCl [Geodon] 20 mg PO DAILY@62902/10/20 02/10/20 History Ziprasidone [Geodon] 40 mg PO HS@2200 02/10/20 02/10/20 History Allergies Allergy/AdvReac Type Severity Reaction Status Date / Time No Known Allergies Allergy Verified 02/10/20 11:36 Surgical - Exam Osteopathic Statement: *. No significant issues noted on an osteopathic structural exam other than those noted in the History and Physical/Consult. Vital Signs Temp Pulse Resp BP Pulse Ox 100.9 F H 123 H 18 112/95 100 02/10/20 11:33 02/10/20 11:33 02/10/20 11:33 02/10/20 11:33 02/10/20 11:33 - General well developed, well nourished - Eyes PERRL - ENT Poor dentition - Neck trachea midline - Respiratory normal respiratory effort - Abdomen Soft, nontender, nondistended, no rebound, no guarding - Neurologic normal sensation Results - Labs 02/11/20 07:07 02/11/20 07:07 Abnormal Lab Results - Last 24 Hours (Table) 02/10/20 02/10/20 02/10/20 Range/Units 11:48 11:48 11:48 WBC 10.8 H (3.8-10.6) k/uL RBC (4.30-5.90) m/uL Hgb (13.0-17.5) gm/dL Hct (39.0-53.0) % Neutrophils # 8.8 H (1.3-7.7) k/uL ESR (0-15) mm/hr APTT (22.0-30.0) sec D-Dimer (<0.60) mg/L FEU Potassium 5.9 H (3.5-5.1) mmol/L Chloride 108 H (98-107) mmol/L BUN 31 H (9-20) mg/dL Creatinine 1.51 H (0.66-1.25) mg/dL Glucose 132 H (74-99) mg/dL Plasma Lactic Acid Ej 3.2 H* (0.7-2.0) mmol/L Calcium (8.4-10.2) mg/dL AST 198 H (17-59) U/L ALT 131 H (4-49) U/L Troponin I (0.000-0.034) ng/mL Total Protein (6.3-8.2) g/dL Albumin (3.5-5.0) g/dL HDL Cholesterol (40-60) mg/dL Procalcitonin (0.02-0.09) ng/mL Ur Specific [place] (1.001-1.035) Urine Protein (Negative) Urine Ketones (Negative) Urine Blood (Negative) Urine Bilirubin (Negative) Urine RBC (0-5) /hpf Hyaline Casts (0-2) /lpf Urine Mucus (None) /hpf 02/10/20 02/10/20 02/10/20 Range/Units 11:48 11:48 11:48 WBC (3.8-10.6) k/uL RBC (4.30-5.90) m/uL Hgb (13.0-17.5) gm/dL Hct (39.0-53.0) % Neutrophils # (1.3-7.7) k/uL ESR 32 H (0-15) mm/hr APTT (22.0-30.0) sec D-Dimer (<0.60) mg/L FEU Potassium (3.5-5.1) mmol/L Chloride (98-107) mmol/L BUN (9-20) mg/dL Creatinine (0.66-1.25) mg/dL Glucose (74-99) mg/dL Plasma Lactic Acid Ej (0.7-2.0) mmol/L Calcium (8.4-10.2) mg/dL AST (17-59) U/L ALT (4-49) U/L Troponin I 1.050 H* (0.000-0.034) ng/mL Total Protein (6.3-8.2) g/dL Albumin (3.5-5.0) g/dL HDL Cholesterol (40-60) mg/dL Procalcitonin 4.62 H (0.02-0.09) ng/mL Ur Specific [place] (1.001-1.035) Urine Protein (Negative) Urine Ketones (Negative) Urine Blood (Negative) Urine Bilirubin (Negative) Urine RBC (0-5) /hpf Hyaline Casts (0-2) /lpf Urine Mucus (None) /hpf 02/10/20 02/10/20 02/10/20 Range/Units 15:08 15:08 15:08 WBC (3.8-10.6) k/uL RBC (4.30-5.90) m/uL Hgb (13.0-17.5) gm/dL Hct (39.0-53.0) % Neutrophils # (1.3-7.7) k/uL ESR (0-15) mm/hr APTT 65.4 H (22.0-30.0) sec D-Dimer 25.58 H (<0.60) mg/L FEU Potassium (3.5-5.1) mmol/L Chloride (98-107) mmol/L BUN (9-20) mg/dL Creatinine (0.66-1.25) mg/dL Glucose (74-99) mg/dL Plasma Lactic Acid Ej 2.2 H* (0.7-2.0) mmol/L Calcium (8.4-10.2) mg/dL AST (17-59) U/L ALT (4-49) U/L Troponin I 1.200 H* (0.000-0.034) ng/mL Total Protein (6.3-8.2) g/dL Albumin (3.5-5.0) g/dL HDL Cholesterol (40-60) mg/dL Procalcitonin (0.02-0.09) ng/mL Ur Specific [place] (1.001-1.035) Urine Protein (Negative) Urine Ketones (Negative) Urine Blood (Negative) Urine Bilirubin (Negative) Urine RBC (0-5) /hpf Hyaline Casts (0-2) /lpf Urine Mucus (None) /hpf 02/10/20 02/10/20 02/10/20 Range/Units 18:38 18:38 18:38 WBC (3.8-10.6) k/uL RBC (4.30-5.90) m/uL Hgb (13.0-17.5) gm/dL Hct (39.0-53.0) % Neutrophils # (1.3-7.7) k/uL ESR (0-15) mm/hr APTT 45.9 H (22.0-30.0) sec D-Dimer (<0.60) mg/L FEU Potassium (3.5-5.1) mmol/L Chloride (98-107) mmol/L BUN (9-20) mg/dL Creatinine (0.66-1.25) mg/dL Glucose (74-99) mg/dL Plasma Lactic Acid Ej 2.6 H* (0.7-2.0) mmol/L Calcium (8.4-10.2) mg/dL AST (17-59) U/L ALT (4-49) U/L Troponin I 0.957 H* (0.000-0.034) ng/mL Total Protein (6.3-8.2) g/dL Albumin (3.5-5.0) g/dL HDL Cholesterol (40-60) mg/dL Procalcitonin (0.02-0.09) ng/mL Ur Specific [place] (1.001-1.035) Urine Protein (Negative) Urine Ketones (Negative) Urine Blood (Negative) Urine Bilirubin (Negative) Urine RBC (0-5) /hpf Hyaline Casts (0-2) /lpf Urine Mucus (None) /hpf 02/10/20 02/10/20 02/11/20 Range/Units 18:45 21:26 00:08 WBC (3.8-10.6) k/uL RBC (4.30-5.90) m/uL Hgb (13.0-17.5) gm/dL Hct (39.0-53.0) % Neutrophils # (1.3-7.7) k/uL ESR (0-15) mm/hr APTT (22.0-30.0) sec D-Dimer (<0.60) mg/L FEU Potassium (3.5-5.1) mmol/L Chloride (98-107) mmol/L BUN (9-20) mg/dL Creatinine (0.66-1.25) mg/dL Glucose (74-99) mg/dL Plasma Lactic Acid Ej 2.5 H* 2.8 H* (0.7-2.0) mmol/L Calcium (8.4-10.2) mg/dL AST (17-59) U/L ALT (4-49) U/L Troponin I (0.000-0.034) ng/mL Total Protein (6.3-8.2) g/dL Albumin (3.5-5.0) g/dL HDL Cholesterol (40-60) mg/dL Procalcitonin (0.02-0.09) ng/mL Ur Specific [place] >1.050 H (1.001-1.035) Urine Protein 1+ H (Negative) Urine Ketones 1+ H (Negative) Urine Blood Trace H (Negative) Urine Bilirubin 1+ H (Negative) Urine RBC 8 H (0-5) /hpf Hyaline Casts 3 H (0-2) /lpf Urine Mucus Few H (None) /hpf 02/11/20 02/11/20 02/11/20 Range/Units 07:07 07:07 07:07 WBC (3.8-10.6) k/uL RBC 3.74 L (4.30-5.90) m/uL Hgb 11.4 L (13.0-17.5) gm/dL Hct 35.9 L (39.0-53.0) % Neutrophils # (1.3-7.7) k/uL ESR (0-15) mm/hr APTT 34.2 H (22.0-30.0) sec D-Dimer (<0.60) mg/L FEU Potassium (3.5-5.1) mmol/L Chloride 112 H (98-107) mmol/L BUN 30 H (9-20) mg/dL Creatinine (0.66-1.25) mg/dL Glucose 123 H (74-99) mg/dL Plasma Lactic Acid Ej (0.7-2.0) mmol/L Calcium 7.9 L (8.4-10.2) mg/dL AST 255 H (17-59) U/L ALT 209 H (4-49) U/L Troponin I (0.000-0.034) ng/mL Total Protein 5.9 L (6.3-8.2) g/dL Albumin 2.8 L (3.5-5.0) g/dL HDL Cholesterol 34 L (40-60) mg/dL Procalcitonin (0.02-0.09) ng/mL Ur Specific [place] (1.001-1.035) Urine Protein (Negative) Urine Ketones (Negative) Urine Blood (Negative) Urine Bilirubin (Negative) Urine RBC (0-5) /hpf Hyaline Casts (0-2) /lpf Urine Mucus (None) /hpf Diabetes panel 02/10/20 02/11/20 Range/Units 11:48 07:07 Sodium 141 140 (137-145) mmol/L Potassium 5.9 H 4.5 (3.5-5.1) mmol/L Chloride 108 H 112 H (98-107) mmol/L Carbon Dioxide 24 22 (22-30) mmol/L BUN 31 H 30 H (9-20) mg/dL Creatinine 1.51 H 1.03 (0.66-1.25) mg/dL Glucose 132 H 123 H (74-99) mg/dL Calcium 9.0 7.9 L (8.4-10.2) mg/dL AST 198 H 255 H (17-59) U/L ALT 131 H 209 H (4-49) U/L Alkaline Phosphatase 117 85 (38-126) U/L Total Protein 7.6 5.9 L (6.3-8.2) g/dL Albumin 3.7 2.8 L (3.5-5.0) g/dL Triglycerides 108 (<150) mg/dL HDL Cholesterol 34 L (40-60) mg/dL Calcium panel 02/10/20 02/11/20 Range/Units 11:48 07:07 Calcium 9.0 7.9 L (8.4-10.2) mg/dL Albumin 3.7 2.8 L (3.5-5.0) g/dL Pituitary panel 02/10/20 02/11/20 Range/Units 11:48 07:07 Sodium 141 140 (137-145) mmol/L Potassium 5.9 H 4.5 (3.5-5.1) mmol/L Chloride 108 H 112 H (98-107) mmol/L Carbon Dioxide 24 22 (22-30) mmol/L BUN 31 H 30 H (9-20) mg/dL Creatinine 1.51 H 1.03 (0.66-1.25) mg/dL Glucose 132 H 123 H (74-99) mg/dL Calcium 9.0 7.9 L (8.4-10.2) mg/dL Adrenal panel 02/10/20 02/11/20 Range/Units 11:48 07:07 Sodium 141 140 (137-145) mmol/L Potassium 5.9 H 4.5 (3.5-5.1) mmol/L Chloride 108 H 112 H (98-107) mmol/L Carbon Dioxide 24 22 (22-30) mmol/L BUN 31 H 30 H (9-20) mg/dL Creatinine 1.51 H 1.03 (0.66-1.25) mg/dL Glucose 132 H 123 H (74-99) mg/dL Calcium 9.0 7.9 L (8.4-10.2) mg/dL Total Bilirubin 0.8 0.6 (0.2-1.3) mg/dL AST 198 H 255 H (17-59) U/L ALT 131 H 209 H (4-49) U/L Alkaline Phosphatase 117 85 (38-126) U/L Total Protein 7.6 5.9 L (6.3-8.2) g/dL Albumin 3.7 2.8 L (3.5-5.0) g/dL Assessment and Plan Plan: 54-year-old male with concern of pericholecystic fluid and abdominal pain. At this point, his abdominal pain is completely resolved. He is tolerating breakfast during my exam. At this point, with multiple cardiac concerns, that there will be no plan for acute surgical intervention as the patient no longer has any abdominal pain. Continue medical and cardiac management. Please call if any clinical change or change in symptomatology.
[2020-02-11] MEDS: ASPIRIN 325 MG TAB PO SCH (08:19)
[2020-02-11] MEDS: ZINC SULFATE 220 MG CAP PO SCH (08:19)
[2020-02-11] MEDS: FAMOTIDINE 20 MG TAB PO SCH ×2 (08:19→22:05)
[2020-02-11] MEDS: HEPARIN SODIUM,PORCINE 5,000 UNIT/ML 1 ML VIAL IV PRN ×2 (08:20→16:14)
[2020-02-11] MEDS: ALBUTEROL HFA INHALER INHALATION SCH ×2 (09:15→12:33)
--- NOTE | 2020-02-11 10:04 | P.CRDCN ---
History of Present Illness Consult date: 02/11/20 Chief complaint: Chest discomfort History of present illness: This is a very pleasant 54-year-old gentleman with a past medical history significant for seizure disorder and also history of mild obliterative disorder who we consulted to see for abnormal cardiac enzymes. The patient does live in a longterm. He is somewhat poor historian. He states yesterday he did have some chest discomfort as a pressure across the chest without any radiation to the arms or neck or shoulders and without any associated symptoms of shortness of breath or dizziness or lightheadedness or any feeling of heart racing or fluttering or syncope. When he presented to the hospital the troponin came in to be elevated above 1. The EKG showed sinus rhythm with ST changes in the anteroseptal leads. He underwent a computed tomography scan of the abdomen and that revealed what it seems to be possible fluid around the gallbladder. Currently the patient is in process of seeing by a surgical team. Also liver function test are elevated. Kidney function are within normal limits with normal. And creatinine. Currently the patient is on aspirin as well as on propranolol. He is not on a statin. He underwent an echocardiogram which revealed normal left ventricular systolic function with evidence off possible mass was seen on tricuspid valve. I had a long discussion with the patient regarding the next step which included transesophageal echocardiogram as well as heart catheterization. The patient would like to discuss that with his power of deputy attorney general which we are going to contact. Meanwhile we'll continue current medical regimen including heparin IV as well as aspirin and hold any statin at this point. Would increase the dose of propranolol because the patient is slightly tachycardic. Past Medical History Past Medical History: Seizure Disorder Additional Past Medical History / Comment(s): LAST KNOWN GRAND MAL SEIZURE 1999- SISTER STATES PT HAS "ABSENT SEIZURES". MENTALLY CHALLENGED History of Any Multi-Drug Resistant Organisms: None Reported Past Surgical History: Hernia Repair Additional Past Surgical History / Comment(s): EGD. BILAT CATARACT SX Past Anesthesia/Blood Transfusion Reactions: No Reported Reaction Past Psychological History: Anxiety Additional Psychological History / Comment(s): MENTALLY CHALLENGED Smoking Status: Never smoker Past Alcohol Use History: None Reported Past Drug Use History: None Reported - Past Family History Father Family Medical History: Cancer Mother Family Medical History: Cancer Medications and Allergies Home Medications Medication Instructions Recorded Confirmed Type Phenytoin Sodium Extended 200 mg PO HS@2200 07/22/14 02/10/20 History [Dilantin] Propranolol [Inderal] 20 mg PO BID@0630,219907/22/14 02/10/20 History Benztropine Mesylate [Cogentin] 0.5 mg PO BID@0630,219902/10/20 02/10/20 History Cimetidine [Tagamet] 400 mg PO BID@30,219902/10/20 02/10/20 History Divalproex [Depakote] 1,000 mg PO HS@219902/10/20 02/10/20 History Divalproex [Depakote] 500 mg PO DAILY@62902/10/20 02/10/20 History Ranitidine HCl 150 mg PO BID 02/10/20 02/10/20 History Ziprasidone HCl [Geodon] 20 mg PO DAILY@62902/10/20 02/10/20 History Ziprasidone [Geodon] 40 mg PO HS@219902/10/20 02/10/20 History Allergies Allergy/AdvReac Type Severity Reaction Status Date / Time No Known Allergies Allergy Verified 02/10/20 11:36 Physical Exam Vitals: Vital Signs Temp Pulse Pulse Resp BP BP Pulse Ox 02/11/20 08:00 98 F 95 16 89/63 95 02/11/20 03:40 98.2 F 101 H 18 95/67 95 02/11/20 02:00 107 H 18 02/10/20 23:36 98.4 F 107 H 18 114/76 98 02/10/20 20:00 98.3 F 103 H 18 98/77 98 02/10/20 16:00 97.9 F 93 18 113/77 94 L 02/10/20 13:35 109 H 18 101/87 100 02/10/20 12:59 99.8 F H 108 H 18 103/81 100 02/10/20 11:33 100.9 F H 123 H 18 112/95 100 Intake and Output 02/10/20 02/11/20 02/11/20 22:59 06:59 14:59 Intake Total 160.055 Output Total 400 Balance -400 160.055 Intake: Intake, IV Titration 160.055 Amount Heparin Sod,Pork in 0.45% 160.055 NaCl 25,000 unit In 0.45 % NaCl 1 250ml.bag @ 12 UNITS/KG/HR 8.491 mls/hr IV .Q24H [facility] Rx#: [id number] Output: Urine 400 Other: Voiding Method Toilet Toilet Toilet Urinal Urinal Urinal # Voids 1 Weight 90 kg - Constitutional General appearance: no acute distress - Respiratory Respiratory: bilateral: CTA - Cardiovascular Rhythm: irregularly irregular Heart sounds: normal: S1, S2 Results 02/11/20 07:07 02/11/20 07:07 Cardiac Enzymes 02/10/20 02/10/20 02/10/20 Range/Units 11:48 11:48 15:08 AST 198 H (17-59) U/L Troponin I 1.050 H* 1.200 H* (0.000-0.034) ng/mL 02/10/20 02/11/20 Range/Units 18:38 07:07 AST 255 H (17-59) U/L Troponin I 0.957 H* (0.000-0.034) ng/mL Coagulation 02/10/20 02/10/20 02/11/20 Range/Units 15:08 18:38 07:07 APTT 65.4 H 45.9 H 34.2 H (22.0-30.0) sec Lipids 02/11/20 Range/Units 07:07 Triglycerides 108 (<150) mg/dL Cholesterol 132 (<200) mg/dL HDL Cholesterol 34 L (40-60) mg/dL CBC 02/10/20 02/11/20 Range/Units 11:48 07:07 WBC 10.8 H 9.3 (3.8-10.6) k/uL RBC 4.40 3.74 L (4.30-5.90) m/uL Hgb 13.5 11.4 L (13.0-17.5) gm/dL Hct 41.7 35.9 L (39.0-53.0) % Plt Count 192 152 (150-450) k/uL Comprehensive Metabolic Panel 02/10/20 02/11/20 Range/Units 11:48 07:07 Sodium 141 140 (137-145) mmol/L Potassium 5.9 H 4.5 (3.5-5.1) mmol/L Chloride 108 H 112 H (98-107) mmol/L Carbon Dioxide 24 22 (22-30) mmol/L BUN 31 H 30 H (9-20) mg/dL Creatinine 1.51 H 1.03 (0.66-1.25) mg/dL Glucose 132 H 123 H (74-99) mg/dL Calcium 9.0 7.9 L (8.4-10.2) mg/dL AST 198 H 255 H (17-59) U/L ALT 131 H 209 H (4-49) U/L Alkaline Phosphatase 117 85 (38-126) U/L Total Protein 7.6 5.9 L (6.3-8.2) g/dL Albumin 3.7 2.8 L (3.5-5.0) g/dL Current Medications Generic Name Dose Route Start Last Admin Trade Name Freq PRN Reason Stop Dose Admin Albuterol Sulfate 2 puff 02/10/20 20:00 02/11/20 09:15 Albuterol Hfa Inhaler INHALATION 2 puff RT-QID STACY Administration Aspirin 325 mg 02/11/20 09:00 02/11/20 08:19 Aspirin 325 Mg Tab PO 325 mg DAILY STACY Administration Benztropine Mesylate 0.5 mg 02/10/20 22:00 02/11/20 06:36 Benztropine Mesylate 0.5 Mg Tab PO 0.5 mg BID@30,0 STCAY Administration Divalproex Sodium 500 mg 02/11/20 06:30 02/11/20 06:36 Divalproex 500 Mg Tablet. PO 500 mg DAILY@0630 STACY Administration Divalproex Sodium 1,000 mg 02/10/20 22:00 02/10/20 21:06 Divalproex 500 Mg Tablet. PO 1,000 mg HS@2200 STACY Administration Famotidine 20 mg 02/10/20 21:00 02/11/20 08:19 Famotidine 20 Mg Tab PO 20 mg BID STACY Administration Heparin Sodium (Porcine) 0 unit 02/10/20 13:11 02/11/20 08:20 Heparin Sodium,Porcine 5,000 Unit/Ml 1 Ml Vial IV 4,000 unit PER PROTOCOL PRN Administration Low PTT Protocol Hydromorphone HCl 0.5 mg 02/10/20 16:23 Hydromorphone 0.5 Mg/0.5 Ml Syringe IVP Q3HR PRN Pain Heparin Sodium/Sodium Chloride 250 mls @ 8.491 mls/hr 02/10/20 13:15 02/11/20 08:21 25,000 unit/ Sodium Chloride IV 15 units/kg/hr .Q24H STACY 10.614 mls/hr Titration Protocol 12 UNITS/KG/HR Sodium Chloride 1,000 mls @ 75 mls/hr 02/10/20 17:30 02/11/20 06:37 Saline 0.9% IV 75 mls/hr .[id number] STACY Administration Ampicillin Sodium/Sulbactam 100 mls @ 200 mls/hr 02/11/20 10:00 Sodium 3 gm/ Sodium Chloride IVPB Q6H STACY Nitroglycerin 0.4 mg 02/10/20 13:14 02/10/20 14:53 Nitroglycerin Sl Tabs 0.4 Mg Tab SUBLINGUAL 0.4 mg Q5M PRN Administration Chest Pain Pantoprazole Sodium 40 mg 02/10/20 17:30 02/11/20 06:36 Pantoprazole 40 Mg Tablet PO 40 mg AC-BID STACY Administration Phenytoin Sodium 200 mg 02/10/20 22:00 02/10/20 21:06 Phenytoin Sodium Extended 100 Mg Cap PO 200 mg HS@2200 STACY Administration Propranolol HCl 40 mg 02/11/20 22:00 Propranolol 20 Mg Tab PO BID@0630,2200 [facility] Zinc Sulfate 220 mg 02/10/20 17:30 02/11/20 08:19 Zinc Sulfate 220 Mg Cap PO 220 mg DAILY STACY Administration Ziprasidone 40 mg 02/10/20 22:00 02/10/20 21:07 Ziprasidone 40 Mg Cap PO 40 mg HS@2200 STACY Administration Ziprasidone 20 mg 02/11/20 06:30 02/11/20 06:36 Ziprasidone 20 Mg Cap PO 20 mg DAILY@0630 STACY Administration Intake and Output 02/10/20 02/11/20 02/11/20 22:59 06:59 14:59 Intake Total 160.055 Output Total 400 Balance -400 160.055 Intake: Intake, IV Titration 160.055 Amount Heparin Sod,Pork in 0.45% 160.055 NaCl 25,000 unit In 0.45 % NaCl 1 250ml.bag @ 12 UNITS/KG/HR 8.491 mls/hr IV .Q24H STACY Rx#: [id number] Output: Urine 400 Other: Voiding Method Toilet Toilet Toilet Urinal Urinal Urinal # Voids 1 Weight 90 kg 02/11/20 07:07 02/11/20 07:07 Assessment and Plan Assessment: Assessment #1 acute non-ST patient myocardial infarction #2 possible gallbladder disease. The patient does have tenderness in the right upper quadrant #3 seizure disorder #4 elevated liver function tests #5 multiple comorbid conditions you Plan #1 continue heparin IV #2 continue aspirin #3 increase the dose of propranolol #4 the echo was reviewed and showed possible mass on tricuspid valve. #5 discuss a WILFRED and heart catheterization with the patient's power of deputy attorney general
--- NOTE | 2020-02-11 11:56 | CDI ---
Documentation Clarification Form Date: 02/11/2020 11:40:20 AM From: Janay Velasco RN CCDS Admit Date: 02/10/2020 12:54:00 PM Patient Name: Jesus Stoll Visit Number: [id number] Discharge Date: ATTENTION: The Clinical Documentation Specialists (CDI) and [facility] Coding Staff appreciate your assistance in clarifying documentation. Please respond to the clarification below the line at the bottom and electronically sign. The CDI & [facility] Coding staff will review the response and follow-up if needed. Please note: Queries are made part of the Legal Health Record. If you have any questions, please contact the author of this message via ITS. Dr. Amelia Pro Reminder per the CDC A negative result does not rule out COVID-19 and should not be used as the sole basis for treatment or patient management decisions. The COVID-19 test obtained on 02/09 was reported as Negative on 02/09. Acute COVID 19 infection with possibly COVID pneumonia is documented in the H&P Patient history/risk factors: 54-year-old male with reported COVID two weeks prior. Medical history of seizure disorder. Clinical Indicators Patient reported abdominal pain, chest pain and fever. CXR 02/09: No acute cardiopulmonary process. 02/09 VS in ED Triage: B/P 112/95; HR 123; Temp 100.9 F Oral; RR 18; SpO2 100% ra 02/09 WBC 10.8; Neutrophils 8.8; Lymphocytes 1.1; Lactic acid 3.2; AST 198; ALT 131; Troponin 1.050; Procalcitonin 4.62; D dimer 25.58 Treatment: 02/09 Zinc po daily; 02/10 Ampicillin Ivpb Q6H In order to capture the severity of condition, please clarify the COVID-19 status: False negative, treating for COVID-19 infection COVID-19 ruled out Other, please specify (Last Form Revision: April 2019) False negative, treating for COVID-19 infection MTDD
[2020-02-11] MEDS: AMPICILLIN-SULBACTAM 3 GM in SODIUM CHLORIDE 0.9% 100 ML IVPB SCH ×3 (12:01→22:04)
[2020-02-11] MEDS: HEPARIN SOD,PORK IN 0.45% NACL 25,000 UNIT in 0.45% NACL 1 250ML.BAG IV SCH (12:03)
--- NOTE | 2020-02-11 16:00 | US ---
EXAMINATION TYPE: US abdomen complete DATE OF EXAM: 02/11/2020 COMPARISON: CT dated 02/10/2020 CLINICAL HISTORY: abd pain ?cholecystitis. Patient unable to tolerate US probe anywhere on abdomen. EXAM MEASUREMENTS: Liver Length: 16.5 cm Gallbladder Wall: 0.2 cm and is suspected measurement is under represented CBD: 0.3 cm Spleen: 10.3 cm Right Kidney: 10.5 x 5.1 x 4.0 cm Left Kidney: 10.7 x 4.5 x 4.8 cm Pancreas: hyperechoic with mid and tail obscured by overlying bowel gas Liver: attenuated posteriorly; periportal wall brightness noted left lobe Gallbladder: no stones or sludge seen in supine or erect position; patient unable to follow instruct ions for LLD views; possible pericholecystic fluid near fundus seen on images #[id number] and #[id number] Evidence for sonographic Herman's sign: no CBD: wnl Spleen: wnl Right Kidney: wnl Left Kidney: mid cortical cyst noted = 0.9 x0.9 x 0.7cm Upper IVC: wnl Abd Aorta: size is wnl, distal aorta obscured by overlying bowel gas IMPRESSION: There are some limitations to the exam. Pericholecystic fluid as noted on CT. Periportal edema suspected, consider cholangitis, hepatitis.
--- NOTE | 2020-02-11 18:14 | PN ---
PROGRESS NOTE DATE OF SERVICE: 02/11/2020 This 54-year-old gentleman admitted with multiple symptomatology had elevated troponin indicative of qgp-OE-mrsfzns-elevation myocardial infarction. Cardiology is tentatively planning cardiac catheterization. The patient also had apparently a history of recent COVID infection as well. Abdominal ultrasound was recommended by Dr. Steiner from Surgery which showed some pericholecystic fluid. Infectious disease evaluation also has been sought. AST and ALT were also elevated. A 2D echo with Doppler done by Cardiology showed ejection fraction about 55% to 60% and moderator band on the right ventricular apex. Vegetation seen on the tricuspid valve leaflets. WILFRED and cardiac catheterization have been considered by Cardiology, as mentioned earlier. Past medical history reviewed. REVIEW OF SYSTEMS: CARDIOVASCULAR SYSTEM: No angina, palpitations. RESPIRATORY SYSTEM: No cough, hemoptysis. GI: No nausea, vomiting. : No dysuria or retention. NERVOUS SYSTEM: No numbness, weakness. CURRENT MEDICATIONS: Reviewed. They include Unasyn, aspirin, Cogentin, Depakote, Pepcid, heparin, Dilaudid, Dilantin. Doses are reviewed. PHYSICAL EXAMINATION: Patient is alert, oriented x3. The pulse is 99, blood pressure 119/66, respirations 16, temperature 97.9, pulse ox 93% on room air. HEENT: Conjunctivae normal. NECK: No jugular venous distention. CARDIOVASCULAR SYSTEM: S1, S2 muffled. RESPIRATORY SYSTEM: Breath sounds diminished at the bases. Scattered rhonchi and crackles. ABDOMEN: Soft, non-tender. NERVOUS SYSTEM: No focal deficit. LABS: D-dimer is 25.58. WBC 9.3, hemoglobin 11.4. Sodium 140, potassium 4.5. COVID-19 rapid testing was negative. ASSESSMENT: 1. Chest pain with elevated troponin, possible acute obt-KW-lkckxxh-elevation myocardial infarction. 2. Possible vegetation on the tricuspid valve. 3. Rule out infective endocarditis. 4. Possible acute COVID-19 infection with possible COVID pneumonia. 5. Elevated creatinine with acute renal failure, possibly acute tubular necrosis. 6. Elevated D-dimer without any evidence of pulmonary embolism. 7. Hyperkalemia secondary to renal failure. 8. Increased white count. 9. History of seizure disorder. 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 11.History of hernia repair. 12.History of esophagogastroduodenoscopy. 13.History of anxiety. 14.History of mentally challenged. 15.FULL CODE. RECOMMENDATIONS AND DISCUSSION: I recommend to continue current medications, continue with the monitoring, symptomatic treatment. Infectious disease evaluation. Patient is on empiric antibiotics IV Unasyn. I would recommend possible WILFRED, cardiac catheterization, repeat COVID-19 testing. I would also recommend a CT scan of the chest without any contrast. Prognosis is guarded because of multiple complex medical issues, and further recommendations to follow. V/Q scan also will be ordered. MMODL / IJN: [id number] /
--- NOTE | 2020-02-11 18:50 | CT ---
EXAMINATION TYPE: CT chest wo con DATE OF EXAM: 02/11/2020 COMPARISON: None HISTORY: pneumonia progress CT DLP: 336.8 mGycm Automated exposure control for dose reduction was used. There are small bilateral pleural effusions. There is patchy airspace infiltrate at the right posteri or lung base. There is 3 cm area of consolidation at the lateral left lung base adjacent to the pleur a. There is no pericardial effusion. Heart appears normal. There are no hilar masses. There is no med iastinal adenopathy. There is spurring in the thoracic spine. There is no compression fracture. IMPRESSION: Right lower lobe pneumonia. Bilateral pleural effusions. Mild subsegmental atelectasis left lung base . 3 cm pleural-based infiltrate lateral left lung base. Right lower lobe pneumonia is increased compared to CT scan of 02/10/2020. Lateral lung base pleural- based mass unchanged. This is nonspecific and follow-up recommended to show long-term stability or cl earing.
--- NOTE | 2020-02-11 20:04 | NM ---
EXAMINATION TYPE: NM pul vent and perfuse DATE OF EXAM: 02/11/2020 COMPARISON: NONE HISTORY: Short of breath. Chest pain. TECHNIQUE: Utilizing inhalation of 38.3 mCi Tc 99m DTPA aerosol and intravenous injection of 4.9 mCi of Tc 99m MAA, ventilation and perfusion images are acquired post injection in multiple projections. FINDINGS: There are numerous peripheral patchy areas of abnormal ventilation in both lungs. There are also bernie pheral patchy areas of decreased perfusion on the perfusion images that appear less severe than the v entilation abnormalities. There is linear defect along the major fissures. IMPRESSION: There is evidence of moderately severe airway disease. The chest x-ray yesterday shows no pulmonary c onsolidation. There is low to intermediate probability of pulmonary embolism.
--- NOTE | 2020-02-11 20:50 | CONS ---
CONSULTATION PULMONARY/CRITICAL CARE PROGRESS NOTE: DATE OF SERVICE: 02/11/2020 REASON FOR CONSULTATION: Abnormal CT scan. This is a 54-year-old gentleman who is mentally handicapped. He is a very pleasant gentleman who apparently was brought in because of abdominal pain and fever. He also apparently had nausea and vomiting. The patient apparently is scheduled to have a cardiac catheterization tomorrow with Dr. Le. We were consulted because he had a chest x-ray and CT scan which showed an abnormality in the left lung, a pleural-based lesion which was potentially suspicious for malignancy. Because he has already received IM because he is going to receive dye again tomorrow from his cardiac catheterization, I thought that we could go ahead and repeat a dedicated CT scan sometime after his cardiac catheterization. The lesion in his chest was seen on a CT of his abdomen and pelvis. He does need a dedicated CT scan of the chest. He is not having any pulmonary complaints whatsoever. He denies any chest pain, shortness of breath, cough, wheezing, phlegm production. He denies smoking cigarettes. Actually this lesion could be worked up as an outpatient. There is no reason to have to do it as an inpatient other than maybe a CT scan. The patient will eventually need a PET scan, which can only be done as an outpatient. MEDICATIONS: His home medications are reviewed. He is on Dilantin, Inderal, Cogentin, Tagamet, Depakote and Geodon. ALLERGIES: DENIED. MEDICAL HISTORY: Medical history includes seizure disorder and being mentally challenged. SURGICAL HISTORY: Surgical history includes hernia repair, EGD, bilateral cataract surgery. SOCIAL HISTORY: Negative for tobacco, alcohol or illicit drug use. FAMILY HISTORY: Positive for cancer in both mother and father. REVIEW OF SYSTEMS: CONSTITUTIONAL: Negative. NEUROLOGIC: Negative. HEENT: Negative. CARDIOVASCULAR: Negative. PULMONARY: Negative. GI: Nausea, vomiting, diarrhea, for which the patient was admitted. : Negative. RHEUMATOLOGIC: Negative. IMMUNOLOGIC: Negative. ENDOCRINOLOGIC: Negative. DERMATOLOGIC: Negative. PHYSICAL EXAMINATION: VITAL SIGNS: Current vital signs reviewed. Temperature 97.9, heart rate 99, respiratory rate 16, blood pressure 119/66, mean 83, room-air saturations 100%. GENERAL APPEARANCE: He appears in no acute distress. HEENT: Examination is grossly unremarkable. NECK: Supple. Full range of motion. No adenopathy. Neck veins are flat. CARDIOVASCULAR: Examination reveals a regular rhythm and rate. Heart rate is 99 beats per minute. S1, S2 normal. No S3, S4 or murmur. LUNGS: Lungs are clear. Breath sounds equal. No wheezes, rhonchi or crackles. ABDOMEN: Soft. Bowel sounds are heard. EXTREMITIES: Intact. No cyanosis, clubbing or edema. SKIN: Without rash. NEUROLOGIC: Neurologic examination is brief but nonfocal. LABS/IMAGING: Labs are reviewed. White count 9.3, hemoglobin 11.4, hematocrit 35.9, platelet count 152,000. His sedimentation rate was 32. PTT is 34.2, D-dimer 25.58. Sodium 140, potassium 4.5, chloride 112. CO2 22. Anion gap is 6. BUN and creatinine were 30 and 1.03. Calcium 7.9. AST 255, ALT 209, albumin 2.8. Amylase and lipase are normal. Procalcitonin level is 4.62. Urine is yellow and cloudy. Specific gravity is greater than 1.050. There is 1+ protein, trace blood, nitrite was negative, LE was negative. There were 8 RBCs, 4 WBCs and one epithelial cell. COVID testing was negative. Microbiologic studies were negative. Chest x-ray appears relatively normal. The abnormality seen on the CT scan is not really readily seen on the chest x-ray. The CT scan of the abdomen and pelvis shows no evidence of bowel obstruction. There is evidence of distal colonic fecal stasis. There is pericholecystic fluid which is present. An ultrasound was recommended. There is a heterogeneous left basilar mass or masslike consolidation. COVID testing, as mentioned, was negative. CURRENT MEDICATIONS: Current medications are reviewed. The patient is on albuterol inhaler, Unasyn, aspirin, Cogentin, vitamin D3, Depakote, famotidine, heparin, Dilaudid, nitroglycerin, Protonix, Diovan, propranolol, zinc and Geodon. ASSESSMENT: 1. Left-sided pleural-based mass of unclear etiology. The workup really could be done as an outpatient. The patient is scheduled for a cardiac catheterization tomorrow by Cardiology. We may repeat a dedicated CT scan 24 hours after his cardiac catheterization. He will need an outpatient PET scan. 2. Lifelong nontobacco use. 3. History of seizure disorder. 4. Mentally challenged. 5. Nausea, vomiting and diarrhea, for which the patient was admitted. PLAN: The patient will have a cardiac catheterization tomorrow. Workup for his left pleural- based mass could be done as an outpatient. No additional recommendations are made. Twenty-four hours after cardiac catheterization, we will order the dedicated CT scan of the chest with contrast. He will need an outpatient PET scan. DEAN / VIOLA: [id number] /
[2020-02-11] MEDS: PANTOPRAZOLE 40 MG/10 ML VIAL IVP SCH (22:05)
[2020-02-11] MEDS: ZIPRASIDONE 40 MG CAP PO SCH (22:05)
[2020-02-11] MEDS: PROPRANOLOL 40 MG TAB PO SCH (22:05)
[2020-02-11] MEDS: PHENYTOIN SODIUM EXTENDED 100 MG CAP PO SCH (22:05)
--- NOTE | 2020-02-11 23:03 | CONS ---
CONSULTATION DATE OF SERVICE: 02/11/2020 REASON FOR CONSULTATION: 1. Question of Remdesivir. 2. Fever. 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 This patient presented to hospital with fever and abdominal pain. Apparently, the patient had been going on for the last few days. The patient is complaining of pain mostly in the right upper quadrant and chest area described the pain to be more of sharp in nature. He did have nausea and vomiting. He denies having any diarrhea. The patient mentioned just feeling sick to the stomach. On presentation to the hospital, the patient did have a low-grade fever of 100.9 degrees Fahrenheit. The patient did have a white count of 10.8 with left shift. Did have elevated D-dimer 25.8. The patient did have elevated liver enzymes. Lactic acid was also elevated. Urine was not significantly positive. Patient did have Covid test came back negative. The patient did have a chest x-ray with evidence of no acute cardiopulmonary process. The patient did have a CT of abdomen and pelvis which raised the possibility of cholecystitis and continues left basilar mass or masslike consolidation. The patient has been admitted to the hospital. The patient was started on heparin because of his elevated troponin. The patient did not receive any antibiotic for his fever. Infectious disease was consulted with concern for possible Covid or need for antibiotic therapy. Most of the information has been obtained from review of chart. The patient not a very good historian. REVIEW OF SYSTEMS: Positive points have been mentioned in HPI. Rest of systems are negative. PAST MEDICAL HISTORY: Seizure disorder, mentally challenged. PAST SURGICAL HISTORY: Past surgical history of hernia repair, EGD, bilateral cataract surgery. SOCIAL HISTORY: No history of smoking, drinking or drug use. FAMILY HISTORY: Both parents with history of cancer, unknown type. ALLERGIES: No known drug allergies. MEDICATIONS: Include the patient is currently on aspirin, Cogentin, vitamin D3, Depakote, Pepcid, heparin, Dilaudid, Nitrostat, Protonix, Inderal. PHYSICAL EXAMINATION: Blood pressure 119/66, pulse of 99, temperature is 97.9. T-max 100.8. He is 93% on room air. General description is a middle-aged male lying in bed in no distress. No tachypnea or accessory muscles of respiration use. HEENT: Shows slight pallor. No scleral icterus. Oral mucous membranes dry. No pharyngeal erythema or thrush. Neck: Trachea central. No thyromegaly. Lungs unlabored breathing, decreased breath sounds at the base. No wheeze. HEART: S1, S2. Regular rate and rhythm. ABDOMEN: Soft, no tenderness. No guarding or rigidity. EXTREMITIES: No edema of the feet. Skin examination: No rash or mass palpable. Neurological: Patient is awake, alert, oriented. Mood and affect normal. LABORATORY DATA: Hemoglobin 11.4, white count 10.8, BUN of 30, creatinine 1.03. Liver enzymes are elevated. Urine was negative. CT angiogram concern for left lower lobe pneumonia and abnormality of the gallbladder with some pericholecystic fluid. DIAGNOSTIC IMPRESSION AND PLAN: Patient admitted to the hospital with fever, mostly abdominal pain and vomiting, now with evidence of possible cholecystitis plus-minus aspiration pneumonia. Clinically doubt Covid 19 infection. PLAN: 1. Restart the patient Unasyn 3 grams q.6 hours . 2. We will follow on clinical condition and further adjust medication if needed. Thank you for this consultation. We will follow this patient along with you. MMODL / IJN: [id number] / MTDD
[2020-02-12] MEDS: HEPARIN SODIUM,PORCINE 5,000 UNIT/ML 1 ML VIAL IV PRN (00:21)
[2020-02-12] MEDS: AMPICILLIN-SULBACTAM 3 GM in SODIUM CHLORIDE 0.9% 100 ML IVPB SCH ×4 (03:46→20:45)
[2020-02-12 06:13] LABS: Basophils # (A) 0.1 k/uL (0-0.2); Basophils % (A) 1 %; Eosinophils # (A) 0.2 k/uL (0-0.7); Eosinophils % (A) 1 %; HCT 32.7 % (39.0-53.0); HGB 11.3 gm/dL (13.0-17.5); Lymphocytes # (A) 1.1 k/uL (1.0-4.8); Lymphocytes % (A) 9 %; MCH 32.2 pg (25.0-35.0); MCHC 34.5 g/dL (31.0-37.0); MCV 93.6 fL (80.0-100.0); Mean Platelet Volume 8.4; Monocytes # (A) 0.7 k/uL (0-1.0); Monocytes % (A) 6 %; Neutrophils # (A) 9.3 k/uL (1.3-7.7); Neutrophils % (A) 81 %; Platelet Count 192 k/uL (150-450); RDW 12.5 % (11.5-15.5); WBC 11.5 k/uL (3.8-10.6)
[2020-02-12 06:36] LABS: ALT 220 U/L (4-49); AST 184 U/L (17-59); African American GFR (CKD) >90 (>60 ml/min/1.73 sqM); Albumin 2.7 g/dL (3.5-5.0); Alkaline Phosphatase 82 U/L (38-126); Anion Gap 5 mmol/L; Blood Urea Nitrogen 21 mg/dL (9-20); Calcium 7.7 mg/dL (8.4-10.2); Carbon Dioxide 21 mmol/L (22-30); Chloride 113 mmol/L (98-107); Glucose 96 mg/dL (74-99); Non-African American GFR(CKD) >90 (>60 ml/min/1.73 sqM); Potassium 4.3 mmol/L (3.5-5.1); Sodium 139 mmol/L (137-145); Total Bilirubin 0.7 mg/dL (0.2-1.3)
[2020-02-12] MEDS: DIVALPROEX 500 MG TABLET.DR PO SCH ×2 (06:39→20:44)
[2020-02-12] MEDS: BENZTROPINE MESYLATE 0.5 MG TAB PO SCH ×2 (06:39→20:45)
[2020-02-12] MEDS: ASPIRIN 325 MG TAB PO SCH (06:39)
[2020-02-12] MEDS: ZIPRASIDONE 20 MG CAP PO SCH (06:39)
[2020-02-12] MEDS: PROPRANOLOL 40 MG TAB PO SCH ×2 (06:39→20:45)
[2020-02-12] MEDS: CHOLECALCIFEROL 1,000 UNIT TAB PO SCH (10:18)
[2020-02-12] MEDS: ZINC SULFATE 220 MG CAP PO SCH (10:18)
[2020-02-12] MEDS: FAMOTIDINE 20 MG TAB PO SCH ×2 (10:18→20:45)
[2020-02-12] MEDS: PANTOPRAZOLE 40 MG/10 ML VIAL IVP SCH ×2 (10:18→20:45)
[2020-02-12] MEDS: SODIUM CHLORIDE 0.9% 1,000 ML IV SCH (10:19)
[2020-02-12] MEDS: HEPARIN SOD,PORK IN 0.45% NACL 25,000 UNIT in 0.45% NACL 1 250ML.BAG IV SCH (10:50)
[2020-02-12] MEDS ORDERED: VERAPAMIL 2.5 MG/ML 2 ML AMP ONE (11:37)
[2020-02-12] MEDS ORDERED: HEPARIN SODIUM 1,000 UN/ML (10ML VL) ONE (11:37)
[2020-02-12] MEDS ORDERED: MIDAZOLAM 2 MG/2 ML VIAL IV ONE (11:51)
[2020-02-12] MEDS ORDERED: LIDOCAINE 1% INJ 10MG/ML (20 ML MDV) SQ ONE (11:52)
[2020-02-12] MEDS: VERAPAMIL SYRINGE (5 MG/10 ML) INTRAARTER ONE ×2 (11:54→12:00)
[2020-02-12] MEDS ORDERED: IV FLUID CONTINUATION 100 ML IV ONE (11:55)
[2020-02-12] MEDS ORDERED: HEPARIN SODIUM 1,000 UN/ML (10ML VL) IV ONE (11:58)
[2020-02-12] MEDS ORDERED: IOPAMIDOL-370 125ML BTL INJ ONE (12:00)
[2020-02-12] MEDS ORDERED: RX INFO: IV CONTRAST WAS GIVEN 1 EACH MISC MISCELLANE PRN (12:05)
[2020-02-12] MEDS ORDERED: SODIUM CHLORIDE 0.9% 1,000 ML IV SCH (12:15)
--- NOTE | 2020-02-12 12:25 | PN ---
PROGRESS NOTE PULMONARY/CRITICAL CARE PROGRESS NOTE: DATE OF SERVICE: February 12, 2020. This is a 54-year-old mentally handicapped gentleman that we met yesterday for consultation. The patient had an abnormal CT scan showing possibly some infiltrate at the right lung base as well as a pleural-based mass in the left lower lobe. He apparently came in with complaints of abdominal pain and fever. He is not a particularly good historian. He also had nausea and vomiting. The patient is going for cardiac catheterization and transesophageal echocardiogram today. The patient's left pleural base mass is suspicious for malignancy. He would benefit from an outpatient PET scan. His workup can all be done as an outpatient. PHYSICAL EXAMINATION: VITAL SIGNS: Current vital signs include a temperature 99.3, heart rate 89, respiratory rate 18, blood pressure 108/65, mean 79, room air saturation 98%. T-max is 100.7. Appears in no acute distress. Clinically looks well. No respiratory issues. HEENT: Examination is grossly unremarkable. NECK: Supple. Full range of motion. No adenopathy. Neck veins are flat. CARDIOVASCULAR: Examination reveals regular rhythm and rate. Heart rate 89. S1, S2 normal. LUNGS: Reveal mostly clear breath sounds. A few scattered rhonchi. No wheezes or crackles. ABDOMEN: Soft. Bowel sounds are heard. EXTREMITIES: Intact. No cyanosis, clubbing, or edema. SKIN: Without rash. NEUROLOGIC: Examination is brief but nonfocal. LABS: Reviewed. White count 11.5, hemoglobin 11.3, hematocrit 32.7, platelet count 192,000. PTT 63.7. Sodium 139, potassium 4.3, chloride 113, CO2 21, anion gap is 5. BUN and creatinine were 21 and 0.7. AST 184, ALT 220. The rest of the labs look okay. Microbiology is currently negative. IMAGING: A lung scan was nondiagnostic. A CT scan of the chest without contrast shows a pleural- based lesion in the left lower lobe as well as a possible infiltrate in the right lower lobe. CURRENT MEDICATIONS: Reviewed. The patient is on Unasyn, aspirin, Cogentin, vitamin D3, Depakote, famotidine, IV heparin, Dilaudid, sublingual nitroglycerin, Protonix, Dilantin, Inderal, saline IV, zinc, and Geodon. ASSESSMENT: 1. Left-sided pleural base mass, of unclear etiology. The workup can be done as an outpatient. The patient will need a PET scan. He may require a biopsy. 2. Possible infiltrate right lower lobe, although patient asymptomatic from the pulmonary standpoint. 3. Lifelong nontobacco use. 4. History of seizure disorder. 5. Mentally challenged. 6. Nausea, vomiting, and diarrhea, for which the patient was admitted, resolved. PLAN: The patient is doing well. He is on room air. He is not having any respiratory issues. The abnormalities on CT scan in the right lower lobe may in fact represent nothing more than atelectasis. The left-sided pleural base mass can be worked up as an outpatient. We will continue to follow. No additional recommendations are made. Prognosis is guarded. MMODL / IJN: [id number] /
--- NOTE | 2020-02-12 12:43 | AN ---
ANGIOGRAPHY REPORT DATE OF SERVICE: February 12, 2020 PERFORMING PHYSICIAN: Phong Le MD. PROCEDURE PERFORMED: Selective right and left coronary angiogram. INDICATION: Acute coronary syndrome with acute coo-TM-xxkwnynrq myocardial infarction. COMPLICATION: None. LEVEL OF SEDATION: Moderate with sedation length of 9 minutes. PROCEDURE DESCRIPTION: After obtaining informed consent, the patient was brought to cardiac builder's labourer. The right radial artery was cannulated using micropuncture technique and a micropuncture wire passed easily. Then I placed a 6-English sheath in the right radial artery. After that I gave the patient 2 mg of verapamil IA and 8000 units of heparin IV. Selective right and left coronary angiogram performed using JR4 and JL3.5 catheters. The procedure was completed without any complication. Selective coronary angiogram. 1. The RCA is a large caliber vessel it is a dominant vessel. The RCA is angiographically normal. Distally bifurcates into PDA and PLV branches and both appeared to be angiographically normal. 2. The left main is angiographically normal and it bifurcates into LCX and LAD. 3. The LCX is a large caliber vessel and it is a nondominant vessel. The LCX is angiographically normal. LCX gives rise into 3 obtuse marginal branches, all of them appeared to be angiographically normal. 4. The LAD is a large caliber vessel. The LAD is angiographically normal. CONCLUSION: Normal coronary angiogram. POSTPROCEDURE MANAGEMENT: Medical treatment and follow up with the patient. MMODL / IJN: [id number] /
--- NOTE | 2020-02-12 17:05 | PN ---
PROGRESS NOTE DATE OF SERVICE: 02/12/2020 This 54-year-old gentleman who was admitted with chest pain and elevated troponin had possible acute vlc-VJ-xgdbtwg-elevation myocardial infarction also. The patient underwent cardiac cath by Dr. Le today which showed normal coronary arteries. The elevated troponin could be a manifestation of COVID-19 infection. Pulmonary perfusion imaging showed moderately severe airway disease, and intermediate probability of pulmonary embolism was suspected. Dr. Rodriguez from Pulmonary has seen the patient and noted left-sided pleural-based mass with etiology undetermined. Right lower lobe infiltrate is also noted. Outpatient workup is also recommended. The patient continues to be confused at this time. Past medical history reviewed. REVIEW OF SYSTEMS: CARDIOVASCULAR SYSTEM: No angina, palpitations. RESPIRATORY SYSTEM: As mentioned earlier. GI: As mentioned earlier. : No dysuria or retention. NERVOUS SYSTEM: No numbness, weakness. CURRENT MEDICATIONS: Reviewed. They include Unasyn IV q.6, aspirin, Cogentin, vitamin D3, Depakote, Pepcid, heparin, Nitrostat, Protonix, Dilantin, Inderal, Orazinc, Geodon. PHYSICAL EXAMINATION: Patient is alert and oriented x3. Pulse is 96, blood pressure 91/60, respiration 20, temperature 100.7, pulse ox 97% on room air. HEENT: Conjunctivae normal. NECK: No jugular venous distention. CARDIOVASCULAR SYSTEM: S1, S2 muffled. RESPIRATORY SYSTEM: Breath sounds diminished at the bases. Bilateral scattered rhonchi and crackles. ABDOMEN: Soft, non-tender. LEGS: No edema. No swelling. NERVOUS SYSTEM: No focal deficit. LABS: Labs at this time show WBC 11.4, hemoglobin 11.3. Sodium 139, potassium 4.3. AST is 184 and ALT is 220. Cultures are negative so far. ASSESSMENT: 1. Chest pain with elevated troponin with possible acute lke-RJ-lhyvsqz-elevation myocardial infarction, status post cardiac catheterization showing normal coronary arteries. 2. Possible vegetation on the tricuspid valve. 3. Rule out infective endocarditis. 4. Possible acute COVID-19 infection with COVID-19 pneumonia. 5. Left-sided pleural-based mass. 6. Elevated creatinine with acute renal failure, possibly acute tubular necrosis. 7. Elevated D-dimer without any evidence of pulmonary embolism. 8. Hyperkalemia secondary to renal failure. 9. Increased white count. 10.History of seizure disorder. 11.History of absence seizures. 12.History of hernia repair. 13.History of esophagogastroduodenoscopy. 14.History of anxiety. 15.History of mentally challenged. 16.FULL CODE. RECOMMENDATIONS AND DISCUSSION: I recommend to continue current medications, continue with the monitoring, symptomatic treatment. Continue with antibiotics. Otherwise, closely follow with Pulmonary and continue the rest of the medications. Infectious Disease initiated patient is on Unasyn. A chest CT was personally reviewed which showed right lower pneumonia and a left chest wall base mass also. Guarded prognosis. Further recommendations to follow. Closely follow with multiple consultants. MMODL / IJN: [id number] / KATIUSKA
[2020-02-12] MEDS: ZIPRASIDONE 40 MG CAP PO SCH (20:44)
[2020-02-12] MEDS: PHENYTOIN SODIUM EXTENDED 100 MG CAP PO SCH (20:44)
--- NOTE | 2020-02-12 22:07 | PN ---
PROGRESS NOTE DATE OF SERVICE: 02/12/2020 REASON FOR FOLLOWUP: Aspiration pneumonia and a question of cholecystitis. INTERVAL HISTORY: The patient did spike a fever of 100.7 this morning. The patient has been afebrile since then. The patient is breathing comfortably. Denies any further chest pain. He did have a cough but no sputum. No abdominal pain. No vomiting or diarrhea. PHYSICAL EXAMINATION: Blood pressure 113/73 with a pulse of 97, temperature 97.8. He is 98% on room air. General description is a middle-aged male lying in bed in no distress. RESPIRATORY SYSTEM: Unlabored breathing with decreased breath sounds at the base. No wheeze. HEART: S1, S2. Regular rate and rhythm. ABDOMEN: Soft. No tenderness. LABS: Hemoglobin 11.3, white count 11.5, BUN of 21, creatinine 0.70. Blood culture has been negative. DIAGNOSTIC IMPRESSION AND PLAN: Patient with a fever and concern for aspiration pneumonia/cholecystitis in this patient currently covered with Unasyn; to continue while waiting for the culture to finalize and monitor his clinical course closely. MMODL / IJN: [id number] /
[2020-02-13] MEDS: SODIUM CHLORIDE 0.9% 1,000 ML IV SCH ×2 (00:36→22:01)
[2020-02-13] MEDS: AMPICILLIN-SULBACTAM 3 GM in SODIUM CHLORIDE 0.9% 100 ML IVPB SCH ×4 (04:26→21:57)
[2020-02-13] MEDS: ZIPRASIDONE 20 MG CAP PO SCH (06:39)
[2020-02-13] MEDS: PROPRANOLOL 40 MG TAB PO SCH ×2 (06:39→21:59)
[2020-02-13] MEDS: DIVALPROEX 500 MG TABLET.DR PO SCH ×2 (06:39→21:58)
[2020-02-13] MEDS: BENZTROPINE MESYLATE 0.5 MG TAB PO SCH ×2 (06:39→21:59)
[2020-02-13 08:08] LABS: Basophils % (A) 0 %; Eosinophils # (A) 0.1 k/uL (0-0.7); Eosinophils % (A) 1 %; HCT 33.5 % (39.0-53.0); HGB 11.1 gm/dL (13.0-17.5); Lymphocytes % (A) 11 %; MCH 31.2 pg (25.0-35.0); MCHC 33.1 g/dL (31.0-37.0); MCV 94.3 fL (80.0-100.0); Mean Platelet Volume 8.1; Monocytes # (A) 0.8 k/uL (0-1.0); Monocytes % (A) 9 %; Neutrophils # (A) 7.1 k/uL (1.3-7.7); Neutrophils % (A) 78 %; Platelet Count 221 k/uL (150-450); RBC 3.55 m/uL (4.30-5.90); RDW 12.6 % (11.5-15.5); WBC 9.1 k/uL (3.8-10.6)
[2020-02-13 08:27] LABS: ALT 190 U/L (4-49); AST 106 U/L (17-59); African American GFR (CKD) >90 (>60 ml/min/1.73 sqM); Albumin 2.5 g/dL (3.5-5.0); Alkaline Phosphatase 87 U/L (38-126); Anion Gap 4 mmol/L; Blood Urea Nitrogen 16 mg/dL (9-20); Calcium 7.7 mg/dL (8.4-10.2); Carbon Dioxide 23 mmol/L (22-30); Chloride 112 mmol/L (98-107); Glucose 114 mg/dL (74-99); Non-African American GFR(CKD) >90 (>60 ml/min/1.73 sqM); Potassium 4.1 mmol/L (3.5-5.1); Sodium 139 mmol/L (137-145); Total Bilirubin 0.6 mg/dL (0.2-1.3); Total Protein 5.5 g/dL (6.3-8.2)
--- NOTE | 2020-02-13 09:07 | P.PN ---
Progress Note - Text Progress Note Date: 02/13/20 This is a very pleasant 54-year-old gentleman with history of seizure who we consulted to see for abnormal cardiac enzymes. The patient stated that he did have a chest discomfort. He is somewhat poor historian. The EKG shows sinus rhythm with ST changes in the anteroseptal leads. Enzymes came in to be abnormal. The echo showed normal LV function with possible mass on the tricuspid valve. The patient underwent a heart catheterization yesterday and that showed no evidence of high-grade stenosis. The plan was to perform a transesophageal echocardiogram but because anesthesia availability the transesophageal echocardiogram was not performed. I did order a blood culture which is still pending at this point. The patient was seen this morning. He is asymptomatic from a cardiovascular standpoint overview. He needs to undergo transesophageal echocardiogram possibly tomorrow.
[2020-02-13] MEDS: PANTOPRAZOLE 40 MG/10 ML VIAL IVP SCH ×2 (09:35→21:57)
[2020-02-13] MEDS: ASPIRIN 325 MG TAB PO SCH (09:35)
[2020-02-13] MEDS: FAMOTIDINE 20 MG TAB PO SCH (09:35)
[2020-02-13] MEDS: CHOLECALCIFEROL 1,000 UNIT TAB PO SCH (09:36)
[2020-02-13] MEDS: ZINC SULFATE 220 MG CAP PO SCH (09:36)
--- NOTE | 2020-02-13 10:47 | US ---
EXAMINATION TYPE: US venous doppler duplex LE DATE OF EXAM: 02/13/2020 10:32 AM COMPARISON: NONE CLINICAL HISTORY: R/O DVT. Swelling. SIDE PERFORMED: Bilateral TECHNIQUE: The lower extremity deep venous system is examined utilizing real time linear array sonog jud with graded compression, doppler sonography and color-flow sonography. VESSELS IMAGED: Common Femoral Vein Deep Femoral Vein Greater Saphenous Vein * Femoral Vein Popliteal Vein Small Saphenous Vein * Proximal Calf Veins (* superficial vessels) Right Leg: +positive for DVT right popliteal vein Left Leg: + positive for DVT left femoral vein extending into popliteal vein Grayscale, color doppler, spectral doppler imaging performed of the deep veins of the bilateral lower extremities. IMPRESSION: Acute DVT is present bilaterally greater in extent in the left lower extremity versus ri ght lower extremity as detailed above. A [place] level critical message alert has been initiated for Phong Le via the [employer] tical Results System on 02/13/2020 10:44 AM. This message alert has been sent to Phong Le via the pr eferences provided by the clinician for the receipt of Radiology Critical Findings. Message ID [id number].
[2020-02-13] MEDS ORDERED: HEPARIN SODIUM,PORCINE 5,000 UNIT/ML 1 ML VIAL IV PRN (11:50)
[2020-02-13] MEDS ORDERED: HEPARIN SODIUM,PORCINE 5,000 UNIT/ML 1 ML VIAL IV ONE (11:50)
[2020-02-13 12:18] LABS: INR 1.1 (<1.2); Partial Thromboplastin Time 27.8 sec (22.0-30.0); Prothrombin Time 11.6 sec (9.0-12.0)
[2020-02-13] MEDS: dexAMETHasone 2 MG TAB PO SCH (12:44)
[2020-02-13] MEDS: ASCORBIC ACID 500 MG TAB PO SCH (12:44)
[2020-02-13] MEDS: HEPARIN SOD,PORK IN 0.45% NACL 25,000 UNIT in 0.45% NACL 1 250ML.BAG IV SCH (12:48)
--- NOTE | 2020-02-13 13:03 | PN ---
PROGRESS NOTE PULMONARY/CRITICAL CARE PROGRESS NOTE: 02/13/2020 This is a 54-year-old gentleman who is mentally handicapped. He was admitted to the hospital with possible infiltrate at the right lung base. The patient also has a pleural-based mass in the left lower lobe. I did mention that this could be worked up as an outpatient and he would benefit from an outpatient PET scan. He underwent a catheterization yesterday. His coronaries were clean. There was no disease whatsoever. Dr. Le was surprised by those findings. The patient does have an abnormality on one of his valves and Dr. Le was planning to do a transesophageal echocardiogram. From the pulmonary standpoint he is doing well. He is not on any oxygen. Denies any shortness of breath. Not coughing. He has no chest congestion. He is not spitting up any phlegm. PHYSICAL EXAMINATION: VITAL SIGNS: Current vital signs include temperature 99.9, heart rate 88, respiratory rate 18, blood pressure 108/71, mean 83, room air saturation 94%. He appears in no acute distress. HEENT: Examination is grossly unremarkable. NECK: Supple. CARDIOVASCULAR: Examination reveals regular rhythm and rate. Heart rate 88. No definitive murmur noted. S1, S2 normal. LUNGS: Reveal mostly clear breath sounds. Mild rhonchi. No wheezes or crackles. ABDOMEN: Soft. EXTREMITIES: Intact. No cyanosis, clubbing, or edema. SKIN: Without rash. NEUROLOGIC: Examination is nonfocal. LABS: Reviewed. White count 9.1, hemoglobin 11.1, hematocrit 33.5, platelet count 321,000. Sodium 139, potassium 4.1, chloride 112, CO2 23, anion gap is 4. BUN and creatinine were 16 and 0.72. The rest of the labs are reviewed. The patient's second COVID test was positive. Microbiology is negative. Venous Dopplers of the lower extremities reveal acute DVT bilaterally in the left lower extremity versus the right lower extremity. CURRENT MEDICATIONS: Include Unasyn, aspirin, Cogentin, vitamin D3, Depakote, famotidine, Lasix, IV heparin, Dilaudid, nitroglycerin tablets, Protonix, zinc, and Geodon, and saline IV. The patient is also on Inderal and Dilantin. ASSESSMENT: 1. Left-sided pleural base mass of unclear etiology. The patient will need an outpatient PET scan. He may require a biopsy. 2. Possible infiltrate right lower lobe, although patient asymptomatic from the pulmonary standpoint. 3. Positive COVID-19 test, although his initial COVID test was negative. 4. Lifelong nontobacco use. 5. History of seizure disorder. 6. Mentally challenged. 7. Nausea, vomiting, and diarrhea, for which the patient was admitted, resolved. 8. Bilateral left greater than right lower extremity deep venous thrombosis. 9. Rule out endocarditis. 10. Normal cardiac catheterization. PLAN: The patient is apparently going to have a transesophageal echocardiogram. I will repeat a chest x-ray. We will make sure the patient is on vitamin C, vitamin D3, and zinc. We will also make sure the patient is on Decadron. Additional recommendations and suggestions are forthcoming. Prognosis is guarded. MMODL / IJN: [id number] / MTDD
--- NOTE | 2020-02-13 14:22 | XR ---
EXAMINATION TYPE: XR chest 1V portable DATE OF EXAM: 02/13/2020 COMPARISON: 02/10/2020 INDICATION: Covid pneumonia TECHNIQUE: Single frontal view of the chest is obtained. FINDINGS: The heart size is normal. The pulmonary vasculature is normal. There is a developing infiltrate at the right base. Correlate for pneumonia. Atypical pneumonia could be considered. Small left pleural effusion has developed. IMPRESSION: 1. Developing infiltrate at the right base and a small left pleural effusion correlate for pneumonia or atypical pneumonia
[2020-02-13] MEDS: FUROSEMIDE 20 MG TAB PO SCH (16:02)
--- NOTE | 2020-02-13 17:04 | PN ---
PROGRESS NOTE DATE OF SERVICE: 02/13/2020 REASON FOR FOLLOWUP: Pneumonia and a question of cholecystitis. INTERVAL HISTORY: Patient did have a low-grade fever of 99.9 this morning. The patient is afebrile. The patient overall is feeling better, is currently on room air. Denies having any further chest pain or shortness of breath or cough. No abdominal pain. No diarrhea. PHYSICAL EXAMINATION: Blood pressure 98/70 with a pulse of 84, temperature 98.3, he is 93% on room air. General description is a middle-aged male up in the chair in no distress. Respiratory system: Unlabored breathing, decreased breath sounds in the base, with no wheeze. Heart S1, S2. Regular rate and rhythm. ABDOMEN: Soft, no tenderness. LABS: Hemoglobin 11.1, white count 9.1, BUN of 16, creatinine 0.72. Blood culture has been negative so far. DIAGNOSTIC IMPRESSION AND PLAN: Patient admitted to the hospital with fever, concern for possible cholecystitis versus right lower lobe pneumonia, question of aspiration. Patient is covered with Unasyn, fever has shown to have clinically responded to it. The patient also had abnormal echo. Currently waiting for the WILFRED. Monitor clinical course closely. MMODL / IJN: [id number] /
--- NOTE | 2020-02-13 18:27 | PN ---
PROGRESS NOTE DATE OF SERVICE: 02/13/2020 INTERVAL HISTORY: This is a 54-year-old gentleman who was admitted with a troponin elevated and acute ST segment elevation. The patient had a cardiac cath that showed normal coronary arteries. The cardiac event could be an involvement of the myocardium by COVID- 19 infection. Otherwise, the patient also had some left leg swelling and bilateral DVT was noted. The patient was started on IV heparin at this time. The most recent chest x-ray which I reviewed personally showed persistent pneumonia, which is the COVID-19 pneumonia on the right side. Multiple consultants are following the patient closely. PAST MEDICAL HISTORY: Reviewed. REVIEW OF SYSTEMS: CARDIOVASCULAR: No angina. RESPIRATORY: As mentioned earlier. GI: As mentioned earlier. : As mentioned earlier. NERVOUS SYSTEM: No numbness or weakness. CURRENT MEDICATIONS: Unasyn IV, vitamin C, aspirin, Cogentin, vitamin D2, dexamethasone, Depakene, Depakote, Lasix, heparin, Nitrostat Protonix, Dilantin. Doses reviewed. PHYSICAL EXAM: Patient is alert, oriented x2. Pulse is 85, blood pressure 123/82, respirations 16, temperature 97.2, pulse ox 98% on room air. GENERAL: Patient is alert and oriented times three. VITAL SIGNS: Pulse 74, blood pressure 170/87, respirations 18, temperature 97.7, pulse ox 97% on room air HEENT: Conjunctivae normal. Oral mucosa moist. NECK: No jugular venous distention. RESPIRATORY: Breath sounds diminished at the bases. A few scattered rhonchi and crackles. HEART: S1 and S2, muffled. ABDOMEN: Soft, no tenderness. EXTREMITIES: Bilateral leg edema. NERVOUS: No focal deficits. LAB STUDIES: WBC 9.3, hemoglobin 11.1, glucose ntd. D-dimer was 25.28. Lactic acid was 2.5. Troponin 0.957. COVID-19 test with the Aaron test was positive. ASSESSMENT: 1. Acute COVID-19 infection with right lower lobe acute COVID-19 pneumonia. 2. Bilateral leg deep venous thrombosis, possibly secondary to COVID-19. 3. Chest pain, elevated troponin, possibly has a acute sab-OZ-gqgbsug-elevation myocardial infarction or COVID induced myocarditis or thrombosis. 4. Cardiac cath showing normal coronary arteries. 5. Possible vegetation in the tricuspid valve, rule out infective endocarditis. 6. Left-sided pleural base mass. 7. Elevated creatinine with acute renal failure possibly acute tubular necrosis and prerenal factors. 8. Elevated D-dimer without evidence of any pulmonary embolism. 9. Hyperkalemia secondary to renal failure. 10.Increased WBC. 11.Seizure disorder. 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 13.History of hernia repair. 14.History degenerative joint disease. 15.History of anxiety. 16.History of mentally challenged. 17.FULL CODE. RECOMMENDATIONS AND DISCUSSION: In this 54-year-old gentleman who presented with multiple complex medical issues, at this time the patient had multiple features of COVID-19 infection in the form of pneumonia and as well as DVT and elevated troponin, including a possible myocardial cardiac involvement. The patient also had high procalcitonin. Patient is also being treated with empiric antibiotics. The cultures are negative so far. Multiple consultants are following the patient closely. I would recommend to start IV heparin. Continue to monitor. WILFRED is being planned by Cardiology. Otherwise, we will closely follow with multiple consultants. The prognosis is guarded because of multiple complex medical issues. Further recommendations to follow. MMODL / IJN: [id number] / MTDRadha
[2020-02-13] MEDS: PHENYTOIN SODIUM EXTENDED 100 MG CAP PO SCH (21:58)
[2020-02-13] MEDS: ZIPRASIDONE 40 MG CAP PO SCH (22:00)
[2020-02-14] MEDS: HEPARIN SOD,PORK IN 0.45% NACL 25,000 UNIT in 0.45% NACL 1 250ML.BAG IV SCH ×3 (01:34→16:37)
[2020-02-14] MEDS: SODIUM CHLORIDE 0.9% 1,000 ML IV SCH ×2 (02:13→15:12)
[2020-02-14] MEDS: AMPICILLIN-SULBACTAM 3 GM in SODIUM CHLORIDE 0.9% 100 ML IVPB SCH ×4 (04:02→21:37)
[2020-02-14 05:31] LABS: Basophils % (A) 0 %; Eosinophils # (A) 0.1 k/uL (0-0.7); Eosinophils % (A) 1 %; HCT 34.8 % (39.0-53.0); HGB 11.5 gm/dL (13.0-17.5); Lymphocytes # (A) 1.9 k/uL (1.0-4.8); Lymphocytes % (A) 22 %; MCH 31.5 pg (25.0-35.0); MCHC 33.2 g/dL (31.0-37.0); MCV 94.9 fL (80.0-100.0); Mean Platelet Volume 8.3; Monocytes # (A) 0.6 k/uL (0-1.0); Monocytes % (A) 7 %; Neutrophils # (A) 5.8 k/uL (1.3-7.7); Neutrophils % (A) 68 %; Platelet Count 254 k/uL (150-450); RBC 3.67 m/uL (4.30-5.90); RDW 12.6 % (11.5-15.5); WBC 8.5 k/uL (3.8-10.6)
[2020-02-14] MEDS: ZIPRASIDONE 20 MG CAP PO SCH (06:23)
[2020-02-14] MEDS: DIVALPROEX 500 MG TABLET.DR PO SCH ×2 (06:23→21:37)
[2020-02-14] MEDS: BENZTROPINE MESYLATE 0.5 MG TAB PO SCH ×2 (06:23→21:38)
[2020-02-14] MEDS: PROPRANOLOL 40 MG TAB PO SCH ×2 (06:24→21:38)
--- NOTE | 2020-02-14 09:58 | P.PN ---
Subjective Progress Note Date: 02/14/20 Principal diagnosis: Possible endocarditis This is a very pleasant 54-year-old gentleman with a past medical history significant for seizure disorder and also history of mild obliterative disorder who we consulted to see for abnormal cardiac enzymes. The patient does live in a senior living. He is somewhat poor historian. He states yesterday he did have some chest discomfort as a pressure across the chest without any radiation to the arms or neck or shoulders and without any associated symptoms of shortness of breath or dizziness or lightheadedness or any feeling of heart racing or fluttering or syncope. When he presented to the hospital the troponin came in to be elevated above 1. The EKG showed sinus rhythm with ST changes in the anteroseptal leads. He underwent a computed tomography scan of the abdomen and that revealed what it seems to be possible fluid around the gallbladder. Currently the patient is in process of seeing by a surgical team. Also liver function test are elevated. Kidney function are within normal limits with normal. And creatinine. Currently the patient is on aspirin as well as on propranolol. He is not on a statin. He underwent an echocardiogram which revealed normal left ventricular systolic function with evidence off possible mass was seen on tricuspid valve. Subsequently the patient underwent coronary angiogram which revealed mild nonobstructive coronary artery disease. Then he underwent yesterday a venous duplex study of the lower extremities and that revealed bilateral DVT. He was seen this morning. He is asymptomatic. He is on IV heparin for the DVT. He is in process of having a WILFRED to rule out endocarditis. Beside that infectious diseases on the case as well. Objective - Vital Signs Vital signs: Vital Signs Temp 99.1 F 02/14/20 08:23 Pulse 80 02/14/20 08:23 Resp 16 02/14/20 08:23 BP 101/68 02/14/20 08:23 Pulse Ox 96 02/14/20 08:23 Intake & Output 02/13/20 02/14/20 02/14/20 18:59 06:59 18:59 Intake Total 1210 282.096 Output Total 250 250 Balance 1210 32.096 -250 Weight 116.5 kg Intake: IV 960 Ampicillin-Sulbactam 3 gm 200 In Sodium Chloride 0.9% 100 ml @ 200 mls/hr IVPB Q6H [facility] Rx#:[id number] Heparin Sod,Pork in 0.45% 160 NaCl 25,000 unit In 0.45 % NaCl 1 250ml.bag @ 12 UNITS/KG/HR 8.491 mls/hr IV .Q24H [facility] Rx#: [id number] Sodium Chloride 0.9% 1, 600 000 ml @ 75 mls/hr IV . [id number] [facility] Rx#:[id number] Intake, IV Titration 282.096 Amount Heparin Sod,Pork in 0.45% 282.096 NaCl 25,000 unit In 0.45 % NaCl 1 250ml.bag @ 18 UNITS/KG/HR 19.44 mls/hr IV .[id number] [facility] Rx#: [id number] Oral 250 Output: Urine 250 250 Other: Voiding Method Toilet Toilet Urinal # Voids 1 1 # Bowel Movements 1 - Constitutional General appearance: Present: no acute distress - Respiratory Respiratory: bilateral: CTA - Cardiovascular Rhythm: regular Heart sounds: normal: S1, S2 - Labs CBC & Chem 7: 02/14/20 05:05 02/13/20 07:44 Labs: Abnormal Lab Results - Last 24 Hours (Table) 02/13/20 02/14/20 02/14/20 Range/Units 18:49 05:05 05:05 RBC 3.67 L (4.30-5.90) m/uL Hgb 11.5 L (13.0-17.5) gm/dL Hct 34.8 L (39.0-53.0) % APTT 168.6 H* 69.6 H (22.0-30.0) sec Microbiology - Last 24 Hours (Table) 02/10/20 18:38 Blood Culture - Preliminary Blood No Growth after 72 hours Assessment and Plan Assessment: Assessment #1 acute non-ST patient myocardial infarction #2 possible gallbladder disease. The patient does have tenderness in the right upper quadrant #3 seizure disorder #4 elevated liver function tests #5 multiple comorbid conditions you Plan #1 continue heparin IV #2 WILFRED to be performed later on today
[2020-02-14] MEDS ORDERED: fentaNYL (PF) 50 MCG/ML 2 ML AMP ONE (11:40)
[2020-02-14] MEDS ORDERED: SODIUM CHLORIDE 0.9% 500 ML 500 ML IV ONE (12:00)
[2020-02-14] MEDS ORDERED: MIDAZOLAM 2 MG/2 ML VIAL IV ONE (12:05)
[2020-02-14] MEDS ORDERED: BENZOCAINE SPRAY 1 CAN MUCOUS MEM ONE (12:07)
[2020-02-14] MEDS: FUROSEMIDE 20 MG TAB PO SCH ×2 (12:47→15:12)
--- NOTE | 2020-02-14 13:19 | ECHOT ---
TRANSESOPHAGEAL ECHOCARDIOGRAM DATE OF SERVICE: 02/14/2020 PERFORMING PHYSICIAN: Phong Le MD. PROCEDURE PERFORMED: Transesophageal echocardiogram. INDICATION: Rule out infective endocarditis. COMPLICATION: None. LEVEL OF SEDATION: Moderate with sedation length of 11 minutes. PROCEDURE DESCRIPTION: After obtaining an informed consent, we decided to pursue with a transesophageal echocardiogram at bedside because the patient was positive for COVID. The patient was turned into left lateral position. The transesophageal echocardiogram probe was advanced through the bite guard to the mid esophagus where 2D echocardiogram images as well as color Doppler, continuous-wave Doppler, and pulse-wave Doppler were obtained. Particular attention was made to the right ventricle and right atrium. The procedure was completed without any complication. FINDINGS: The left ventricular dimension and systolic function appeared to be within normal limits. The ejection fraction appeared to be in the range of 50% to 55%. The right ventricle appeared to be of normal size and function. The left atrium appeared to be mildly dilated as well as the right atrium. The left atrial appendage appeared to be intact. The interatrial septum appeared to be intact. The aortic valve is trileaflet valve without stenosis or regurgitation. The mitral valve appeared to be mildly thickened with mild MR. The tricuspid valve appeared to be intact with mild TR only. There were multiple echodensities identified in the right ventricular outflow tract with free motion consistent with possible and likely multiple thrombus. Given the patient's history of DVT and also history of recent infection with COVID, this likely represents thrombus. CONCLUSION: 1. Normal left ventricular dimension and systolic function. 2. Normal right ventricular dimension and systolic function. 3. Mildly dilated left and right atrium. 4. Intact interatrial septum. 5. Intact left atrial appendage. 6. Overall intact intracardiac valves. 7. Multiple echodensities with free motions identified in the right ventricular outflow tract, likely represents multiple thrombus. 8. No evidence of pericardial effusion seen. POSTPROCEDURE MANAGEMENT: 1. Continue IV heparin. 2. Follow up with the patient. MMODL / IJN: [id number] /
--- NOTE | 2020-02-14 14:34 | PN ---
PROGRESS NOTE PULMONARY/CRITICAL CARE PROGRESS NOTE: DATE OF SERVICE: 02/14/2020 54-year-old gentleman who is mentally handicapped. He was admitted to the hospital with a possible infiltrate at the right lung base. The patient also has a pleural- based mass in the left lower lobe which will need to be worked up as an outpatient. I recommend initially a PET scan. He had a catheterization done a couple days ago. His coronaries were clean. Dr. Le was planning to do a transesophageal echocardiogram. From the pulmonary standpoint, he is doing well. He did test positive for COVID-19 infection. He was not really having much in the way of pulmonary complaints. He was not short of breath, coughing or producing any phlegm. PHYSICAL EXAMINATION: VITAL SIGNS: Current vital signs are reviewed. Temperature is 99.1, T-max was 100.7 on February 11, heart rate 67, respiratory rate 16, blood pressure 134/64 and room air saturation 94%-95%. Appears in no acute distress. HEENT: Examination is grossly unremarkable. NECK: Supple. Full range of motion. No adenopathy. Neck veins are flat. CARDIOVASCULAR: Examination reveals regular rhythm and rate. S1, S2 normal. No murmur. LUNGS: Reveal clear breath sounds. No wheezes, rhonchi, or crackles to any great extent. ABDOMEN: Soft. Bowel sounds are heard. EXTREMITIES are intact. No edema. SKIN: Without rash. NEUROLOGIC: Examination is nonfocal. LABS: Reviewed. White count 8.5, hemoglobin 11.5, hematocrit 34.8, platelet count 354,000. PTT is 69.6. Sodium, potassium normal. Chloride is 112, CO2 23, anion gap 4. BUN and creatinine were 16 and 0.72. Microbiology is currently all negative. A chest x-ray from the reveals a right basilar infiltrate which was previously seen on CT. CURRENT MEDICATIONS: Reviewed. He is on Unasyn, vitamin C, aspirin, Cogentin, vitamin D3, Decadron, Depakote, Lasix, IV heparin, Dilaudid, nitroglycerin tablets, Protonix, Dilantin, Inderal, zinc sulfate, and Geodon. ASSESSMENT: 1. Left-sided pleural based mass of unclear etiology. This may represent a malignancy. The patient will need an outpatient PET scan and may require a biopsy. 2. Possible infiltrate right lower lobe/right lower lobe pneumonia, although patient asymptomatic from the pulmonary standpoint. 3. Positive COVID-19 test, although his initial COVID test was negative. 4. Lifelong nontobacco use. 5. Seizure disorder. 6. Mentally challenged. 7. Nausea, vomiting, and diarrhea, all improved, for which the patient was admitted, may relate to COVID-19 infection. 8. Bilateral left greater than right lower extremity deep venous thrombosis. 9. Rule out endocarditis. 10.Normal cardiac catheterization. PLAN: The patient's developing infiltrate at the right lung base, as well as his initial symptoms of nausea, vomiting and diarrhea could all relate to his COVID-19 infection. The patient will eventually need a transesophageal echocardiogram according to Dr. Le. His cardiac catheterization was negative. We will continue to follow. He remains on Unasyn. He is also getting the COVID cocktail, vitamin C, vitamin D3, and zinc. The patient is also on Decadron. MMODL / IJN: [id number] / MTDD
--- NOTE | 2020-02-14 14:34 | PN ---
PROGRESS NOTE DATE OF SERVICE: 02/14/2020. This 54-year-old gentleman admitted with elevated troponin, acute has [id number]- elevation myocardial infarction. Cardiac cath showed normal coronary arteries. Patient also had COVID-19 infection, bilateral DVT is also noted. The patient has been started on IV heparin. The vegetation on the tricuspid valve was suspected in the surface 2D echo. A WILFRED was done by Dr. Le which showed multiple echo densities with free motion site identified in the right ventricular outflow tract, likely representing multiple thrombus. No evidence of pericardial effusion was given. The patient closely monitored. Past medical history reviewed. REVIEW OF SYSTEMS: Cardiovascular system: No angina. Respiration as mentioned earlier. GI: As mentioned earlier. : No dysuria. NERVOUS SYSTEM: No numbness or weakness. CURRENT MEDICATIONS: Reviewed. Vitamin C, aspirin, Cogentin, Depakote, heparin, PHYSICAL EXAM: Patient is alert, oriented x2. Pulse is 80. Blood pressure 111/70, respirations 16, temperature normal, pulse ox 94% on room air. HEENT: Conjunctivae normal. NECK: No JVD. CARDIOVASCULAR: S1, S2 muffled. Respiration: Breath sounds diminished in the bases. A few scattered rhonchi and crackles. ABDOMEN: Soft. NERVOUS SYSTEM: No focal deficits. LEGS: Bilateral leg edema present. LABS: WBC 8.2, hemoglobin 11.5, PTT noted AST/ALT noted. The blood cultures negative. ASSESSMENT: 1. Acute Covid 19 infection of the right lower pneumonia, Covid 19 interstitial viral pneumonia. 2. Bilateral leg deep vein thrombosis, possibly secondary to Covid 19, on IV heparin. 3. Chest pain, elevated troponin, possibly acute dan-ZN-qxtctke-elevation myocardial infarction or Covid induced myocarditis or thrombosis. 4. Multiple thrombi in the right ventricular outflow tract in the WILFRED. 5. Cardiac cath showing normal coronary arteries. 6. Left-sided pleural based mass. 7. Elevated creatinine with acute renal failure with possible acute tubular necrosis and prerenal factors. 8. Elevated D-dimer with no evidence of acute pulmonary embolism. 9. Hyperkalemia secondary to renal failure. 10.Increased WBC. 11.Seizure disorder. 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 13.History of hernia repair. 14.History of degenerative joint disease. 15.History of anxiety. 16.History of mentally challenged. 17.FULL CODE. RECOMMENDATIONS AND DISCUSSION: I recommend to continue current medications, management and symptomatic treatment. Continue with IV heparin. Continue the rest of medications. This patient has multiple features of COVID-19 infection. The prognosis is extremely guarded because of multiple features as described. I would also recommend hematology/oncology evaluation for further delineation of the process also. Dr. Chaney and multiple consults also following the patient closely. Further recommendations to follow. MMODL / IJN: [id number] / MTDD
[2020-02-14] MEDS: PANTOPRAZOLE 40 MG/10 ML VIAL IVP SCH ×2 (15:11→21:36)
[2020-02-14] MEDS: ASPIRIN 325 MG TAB PO SCH (15:11)
[2020-02-14] MEDS: ASCORBIC ACID 500 MG TAB PO SCH (15:12)
[2020-02-14] MEDS: CHOLECALCIFEROL 1,000 UNIT TAB PO SCH (15:12)
[2020-02-14] MEDS: ZINC SULFATE 220 MG CAP PO SCH (15:12)
[2020-02-14] MEDS: dexAMETHasone 2 MG TAB PO SCH (15:12)
[2020-02-14] MEDS: PHENYTOIN SODIUM EXTENDED 100 MG CAP PO SCH (21:38)
[2020-02-14] MEDS: ZIPRASIDONE 40 MG CAP PO SCH (21:39)
--- NOTE | 2020-02-14 22:19 | PN ---
PROGRESS NOTE DATE OF SERVICE: 02/14/2020 REASON FOR FOLLOWUP: 1. Possible aspiration pneumonia. 2. Abnormal echo. INTERVAL HISTORY: The patient is currently afebrile. The patient is breathing comfortably currently on room air. The patient denies having any chest pain or shortness of breath. Occasional cough. No nausea. No abdominal pain. No diarrhea. PHYSICAL EXAMINATION: Blood pressure 139/69, pulse 85, temperature 97.3. He is 96% on room air. General description is a middle-aged male lying in bed in no distress. Respiratory system: Unlabored breathing, decreased breath sounds at bases. No wheeze. HEART: S1, S2. Regular rate and rhythm. Abdomen soft. No tenderness. LABS: Hemoglobin 11.5, white count 8.5, BUN of 16, creatinine 0.72. DIAGNOSTIC IMPRESSION AND PLAN: Patient admitted to the hospital with a fever with a question of an aspiration pneumonia/cholecystitis. Also have an abnormal echocardiogram in this patient who is status post WILFRED completed this morning that was negative for any vegetation with evidence of multiple thrombus. Patient is currently covered with Unasyn to continue and monitor clinical course closely. Continue supportive care. MMODL / IJN: [id number] /
--- NOTE | 2020-02-15 01:15 | P.CONS ---
History of Present Illness - Reason for Consult Consult date: 02/15/20 New DVT Requesting physician: Amelia Pro - Chief Complaint nausea vomiting cough - History of Present Illness Very pleasant male, who lives in [place] and sister is guardian. Presented with complications of COVID infection. No personal history of cancer Original COVID 12/24/[address] Scan abdomen and pelvis - on 01/11/20 revealed 3x1.7 masslike density in left lower lobe. CT without contrast revealed Pleural effusions CTA to assess for Pulmonary emoboli given his hypercoagulable appearance. Review of Systems ROS unobtainable: due to mental status Past Medical History Past Medical History: Seizure Disorder Additional Past Medical History / Comment(s): LAST KNOWN GRAND MAL SEIZURE 1999- SISTER STATES PT HAS "ABSENT SEIZURES". MENTALLY CHALLENGED History of Any Multi-Drug Resistant Organisms: None Reported Past Surgical History: Hernia Repair Additional Past Surgical History / Comment(s): EGD. BILAT CATARACT SX Past Anesthesia/Blood Transfusion Reactions: No Reported Reaction Past Psychological History: Anxiety Additional Psychological History / Comment(s): MENTALLY CHALLENGED Smoking Status: Never smoker Past Alcohol Use History: None Reported Past Drug Use History: None Reported - Past Family History Father Family Medical History: Cancer Mother Family Medical History: Cancer Medications and Allergies Home Medications Medication Instructions Recorded Confirmed Type Phenytoin Sodium Extended 200 mg PO HS@0 07/22/14 02/10/20 History [Dilantin] Propranolol [Inderal] 20 mg PO BID@0630,2200 07/22/14 02/10/20 History Benztropine Mesylate [Cogentin] 0.5 mg PO BID@0630,219902/10/20 02/10/20 History Cimetidine [Tagamet] 400 mg PO BID@0630,0 02/10/20 02/10/20 History Divalproex [Depakote] 1,000 mg PO HS@219902/10/20 02/10/20 History Divalproex [Depakote] 500 mg PO DAILY@30 02/10/20 02/10/20 History Ranitidine HCl 150 mg PO BID 02/10/20 02/10/20 History Ziprasidone HCl [Geodon] 20 mg PO DAILY@0630 02/10/20 02/10/20 History Ziprasidone [Geodon] 40 mg PO HS@2200 02/10/20 02/10/20 History Allergies Allergy/AdvReac Type Severity Reaction Status Date / Time No Known Allergies Allergy Verified 02/10/20 11:36 Physical Exam Vitals: Vital Signs Temp Pulse Pulse Resp BP Pulse Ox 02/15/20 00:00 98.2 F 79 18 114/71 94 L 02/14/20 20:00 97.9 F 86 18 119/78 95 02/14/20 15:00 85 16 02/14/20 14:54 97.3 F L 85 16 129/69 96 02/14/20 12:45 83 16 115/76 95 02/14/20 12:34 80 16 111/71 94 L 02/14/20 12:15 75 16 120/72 94 L 02/14/20 12:10 76 18 124/57 94 L 02/14/20 12:05 70 18 115/67 95 02/14/20 11:54 84 16 115/70 96 02/14/20 08:23 99.1 F 80 16 101/68 96 02/14/20 08:20 80 16 02/14/20 04:00 98.3 F 81 18 93/61 94 L 02/14/20 02:00 18 Intake and Output 02/14/20 02/14/20 02/15/20 14:59 22:59 06:59 Intake Total 100 1743.91 Output Total 250 500 Balance -150 1243.91 Intake: IV 100 360 Ampicillin-Sulbactam 3 gm 200 In Sodium Chloride 0.9% 100 ml @ 200 mls/hr IVPB Q6H [facility] Rx#:[id number] Heparin Sod,Pork in 0.45% 160 NaCl 25,000 unit In 0.45 % NaCl 1 250ml.bag @ 18 UNITS/KG/HR 19.44 mls/hr IV .[id number] [facility] Rx#: [id number] Intake, IV Titration 743.91 Amount Heparin Sod,Pork in 0.45% 143.91 NaCl 25,000 unit In 0.45 % NaCl 1 250ml.bag @ 18 UNITS/KG/HR 19.44 mls/hr IV .[id number] [facility] Rx#: [id number] Sodium Chloride 0.9% 1, 600 000 ml @ 75 mls/hr IV . [id number] [facility] Rx#:[id number] Oral 640 Output: Urine 250 500 Other: Voiding Method Toilet Toilet # Voids 1 # Bowel Movements 1 - Constitutional General appearance: cooperative, no acute distress - EENT Eyes: poor dentition - Respiratory Respiratory: bilateral: diminished - Cardiovascular Rhythm: irregularly irregular leg Peripheral Edema: bilateral: 2+ - Gastrointestinal General gastrointestinal: soft - Integumentary Integumentary: pale - Neurologic non focal - Musculoskeletal Musculoskeletal: strength equal bilaterally - Psychiatric Baseline Results CBC & Chem 7: 02/15/20 06:33 02/15/20 06:33 Labs: Abnormal Lab Results - Last 24 Hours (Table) 02/14/20 02/14/20 02/14/20 Range/Units 05:05 05:05 12:35 RBC 3.67 L (4.30-5.90) m/uL Hgb 11.5 L (13.0-17.5) gm/dL Hct 34.8 L (39.0-53.0) % APTT 69.6 H 55.2 H (22.0-30.0) sec Microbiology - Last 24 Hours (Table) 02/10/20 18:38 Blood Culture - Preliminary Blood No Growth after [address] scan - chest: report reviewed (was without contrast, CTA ordered ) Venous US: report reviewed Assessment and Plan (1) Normocytic anemia Current Visit: Yes Status: Acute Code(s): D64.9 - ANEMIA, UNSPECIFIED SNOMED Code(s): 430308102 (2) Liver function study, abnormal Current Visit: Yes Status: Acute Code(s): R94.5 - ABNORMAL RESULTS OF LIVER FUNCTION STUDIES SNOMED Code(s): 723178449 (3) DVT (deep venous thrombosis) Current Visit: Yes Status: Acute Code(s): I82.409 - ACUTE EMBOLISM AND THOMBOS UNSP DEEP VN UNSP LOWER EXTREMITY SNOMED Code(s): 334173135 (4) NSTEMI (non-ST elevated myocardial infarction) Current Visit: Yes Status: Acute Code(s): I21.4 - NON-ST ELEVATION (NSTEMI) MYOCARDIAL INFARCTION SNOMED Code(s): 79807484 (5) Ventricular thrombus following RI (myocardial infarction) Current Visit: Yes Status: Acute Code(s): I23.6 - THOMBOS OF ATRIUM/AURIC APPEND/VENTR CURRENT COMP FOL AMI SNOMED Code(s): 239074267 Plan: - Cardiology management - Continue Heparin Drip with Acute Covid infection and risk of worsening anemia - Monitor CBC, stable at this time, will further evaluate - CTA to assess for PE - Once Stable can convert to DOAC, length of therapy to be determined - Continue close monitoring for microvascular angiopathies - Hypercoaguable secondary to Covid - Monitoring of coags, CBC, and CMP - Monitor D-dimer at this point should continue to decrease, further increase can be concerning for poorer prognosis. - At this time remains stable. Thank you for allowing us to participate in the care of this patient we will follow along.
[2020-02-15] MEDS: AMPICILLIN-SULBACTAM 3 GM in SODIUM CHLORIDE 0.9% 100 ML IVPB SCH ×4 (03:49→20:30)
[2020-02-15] MEDS: SODIUM CHLORIDE 0.9% 1,000 ML IV SCH ×2 (03:52→17:53)
[2020-02-15] MEDS: DIVALPROEX 500 MG TABLET.DR PO SCH ×2 (06:15→20:30)
[2020-02-15] MEDS: PROPRANOLOL 40 MG TAB PO SCH ×2 (06:15→20:30)
[2020-02-15] MEDS: BENZTROPINE MESYLATE 0.5 MG TAB PO SCH ×2 (06:15→20:30)
[2020-02-15] MEDS: ZIPRASIDONE 20 MG CAP PO SCH (06:16)
[2020-02-15 07:02] LABS: Basophils % (A) 1 %; Eosinophils # (A) 0.1 k/uL (0-0.7); Eosinophils % (A) 1 %; HCT 38.6 % (39.0-53.0); HGB 11.9 gm/dL (13.0-17.5); Lymphocytes # (A) 1.7 k/uL (1.0-4.8); Lymphocytes % (A) 18 %; MCH 29.4 pg (25.0-35.0); MCHC 30.7 g/dL (31.0-37.0); MCV 95.6 fL (80.0-100.0); Mean Platelet Volume 7.8; Monocytes # (A) 0.5 k/uL (0-1.0); Monocytes % (A) 6 %; Neutrophils # (A) 6.7 k/uL (1.3-7.7); Neutrophils % (A) 74 %; Platelet Count 368 k/uL (150-450); RBC 4.04 m/uL (4.30-5.90); RDW 12.9 % (11.5-15.5); Reticulocyte % 2.5 % (0.5-2.0); WBC 9.1 k/uL (3.8-10.6)
[2020-02-15 07:48] LABS: ALT 107 U/L (4-49); AST 60 U/L (17-59); African American GFR (CKD) >90 (>60 ml/min/1.73 sqM); Albumin 2.5 g/dL (3.5-5.0); Alkaline Phosphatase 111 U/L (38-126); Anion Gap 2 mmol/L; Blood Urea Nitrogen 16 mg/dL (9-20); Carbon Dioxide 24 mmol/L (22-30); Chloride 113 mmol/L (98-107); Glucose 107 mg/dL (74-99); LDH 622 U/L (313-618); Non-African American GFR(CKD) >90 (>60 ml/min/1.73 sqM); Potassium 3.8 mmol/L (3.5-5.1); Sodium 139 mmol/L (137-145); Total Bilirubin 0.3 mg/dL (0.2-1.3); Total Protein 5.7 g/dL (6.3-8.2)
[2020-02-15] MEDS: CHOLECALCIFEROL 1,000 UNIT TAB PO SCH (09:17)
[2020-02-15] MEDS: dexAMETHasone 2 MG TAB PO SCH (09:17)
[2020-02-15] MEDS: ZINC SULFATE 220 MG CAP PO SCH (09:17)
[2020-02-15] MEDS: ASCORBIC ACID 500 MG TAB PO SCH (09:17)
[2020-02-15] MEDS: ASPIRIN 325 MG TAB PO SCH (09:17)
[2020-02-15] MEDS: FUROSEMIDE 20 MG TAB PO SCH ×2 (09:18→17:53)
[2020-02-15] MEDS: PANTOPRAZOLE 40 MG/10 ML VIAL IVP SCH ×2 (09:18→20:30)
--- NOTE | 2020-02-15 10:37 | P.PN ---
Subjective Progress Note Date: 02/15/20 Principal diagnosis: Possible endocarditis This is a very pleasant 54-year-old gentleman with a past medical history significant for seizure disorder and also history of mild cognitive disorder who we consulted initially for the treatment of acute coronary syndrome. The patien t initially was admitted with a chest discomfort and a troponin came in to be elevated. Because of that we advised the patient to undergo a heart catheterization. The heart catheterization revealed normal coronaries. At that point the patient was tested for COVID and he was tested negative. Subsequently an echocardiogram was performed and revealed possible mass/vegetation on tricuspid valve. Because of that transesophageal echocardiogram was advised. At that point COVID test was performed again and turned to be positive at this point. Also he developed bilateral lower extremities edema/swelling. I did order a venous duplex study and that came in to be positive for bilateral DVT. Because there was a concern about tricuspid valve I did perform transesophageal echocardiogram on him yesterday and that revealed intact intracardiac valves but there was multiple thrombus with free motion identified in the right ventricular outflow tract. The patient was seen today 03/13/2020. He remains asymptomatic from a cardiovascular standpoint of view. He continues to be on heparin IV. Pul monary/critical care team is on the case as well. From a cardiovascular standpoint of view, no need for any further cardiac workup at this point. He needs to be anticoagulated and currently he is on heparin IV. We'll follow-up with the patient on when necessary case. Objective - Vital Signs Vital signs: Vital Signs Temp 97.6 F 02/15/20 07:45 Pulse 80 02/15/20 07:45 Resp 18 02/15/20 07:45 BP 136/98 02/15/20 07:45 Pulse Ox 92 L 02/15/20 07:45 Intake & Output 02/14/20 02/15/20 02/15/20 18:59 06:59 18:59 Intake Total 1843.91 240 Output Total 750 Balance 1093.91 240 Weight 114 kg Intake: IV 460 Ampicillin-Sulbactam 3 gm 200 In Sodium Chloride 0.9% 100 ml @ 200 mls/hr IVPB Q6H [facility] Rx#:[id number] Heparin Sod,Pork in 0.45% 160 NaCl 25,000 unit In 0.45 % NaCl 1 250ml.bag @ 18 UNITS/KG/HR 19.44 mls/hr IV .[id number] [facility] Rx#: [id number] Intake, IV Titration 743.91 Amount Heparin Sod,Pork in 0.45% 143.91 NaCl 25,000 unit In 0.45 % NaCl 1 250ml.bag @ 18 UNITS/KG/HR 19.44 mls/hr IV .[id number] [facility] Rx#: [id number] Sodium Chloride 0.9% 1, 600 000 ml @ 75 mls/hr IV . [id number] [facility] Rx#:[id number] Oral 640 240 Output: Urine 750 Other: Voiding Method Toilet Toilet # Voids 1 2 # Bowel Movements 1 - Constitutional General appearance: Present: no acute distress - Labs CBC & Chem 7: 02/15/20 06:33 02/15/20 06:33 Labs: Abnormal Lab Results - Last 24 Hours (Table) 02/14/20 02/15/20 02/15/20 Range/Units 12:35 06:33 06:33 RBC 4.04 L (4.30-5.90) m/uL Hgb 11.9 L (13.0-17.5) gm/dL Hct 38.6 L (39.0-53.0) % MCHC 30.7 L (31.0-37.0) g/dL Retic Count 2.5 H (0.5-2.0) % APTT 55.2 H 58.1 H (22.0-30.0) sec Chloride (98-107) mmol/L Glucose (74-99) mg/dL Calcium (8.4-10.2) mg/dL AST (17-59) U/L ALT (4-49) U/L Lactate Dehydrogenase (313-618) U/L Total Protein (6.3-8.2) g/dL Albumin (3.5-5.0) g/dL 02/15/20 Range/Units 06:33 RBC (4.30-5.90) m/uL Hgb (13.0-17.5) gm/dL Hct (39.0-53.0) % MCHC (31.0-37.0) g/dL Retic Count (0.5-2.0) % APTT (22.0-30.0) sec Chloride 113 H (98-107) mmol/L Glucose 107 H (74-99) mg/dL Calcium 8.0 L (8.4-10.2) mg/dL AST 60 H (17-59) U/L ALT 107 H (4-49) U/L Lactate Dehydrogenase 622 H (313-618) U/L Total Protein 5.7 L (6.3-8.2) g/dL Albumin 2.5 L (3.5-5.0) g/dL Microbiology - Last 24 Hours (Table) 02/10/20 18:38 Blood Culture - Preliminary Blood No Growth after 96 hours Assessment and Plan Assessment: Assessment #1 bilateral lower extremities DVT #2 thrombus in the right ventricular outflow tract #3 abnormal troponin #4 status post heart catheterization showed normal coronaries #5 preserved left ventricle systolic function Plan #1 continue the current medical regimen #2 continue IV heparin #3 switch the patient to by mouth anticoagulation #4 no need for any further cardiac workup
[2020-02-15] MEDS: HEPARIN SOD,PORK IN 0.45% NACL 25,000 UNIT in 0.45% NACL 1 250ML.BAG IV SCH (11:57)
--- NOTE | 2020-02-15 12:38 | PN ---
PROGRESS NOTE PULMONARY/CRITICAL CARE PROGRESS NOTE: DATE OF SERVICE: February 15, 2020. HISTORY: A 54-year-old, mentally handicapped gentleman, who was admitted to the hospital with a possible infiltrate at the right lung base. The patient also has a history of a pleural base mass in the left lower lobe, which will need outpatient evaluation. He had a catheterization done a couple days ago. The catheterization was completely normal. The patient was to have a transesophageal echocardiogram as well. From the pulmonary standpoint, the patient is doing reasonably well. He did test positive for COVID-19 infection after initially testing negative. In addition, he was found to have bilateral lower extremity, left greater than right DVTs. In addition, apparently the transesophageal echocardiogram revealed a thrombus in the right ventricular outflow tract. The patient interestingly all along, has never had any pulmonary complaints. He denies any shortness of breath, chest tightness, cough, wheezing, or phlegm production. PHYSICAL EXAMINATION: VITAL SIGNS: Currently, his vital signs are stable. Temperature is 97.6. Heart rate 83, respiratory rate 16, blood pressure 122/90, mean 100. Room air saturation 97%. GENERAL: He appears in no acute distress. No conversational dyspnea, audible wheezing or use of accessory muscles. HEENT: Examination is grossly unremarkable. NECK: Supple. Full range of motion. No adenopathy. Neck veins are flat. CARDIOVASCULAR: Examination reveals regular rhythm and rate. Heart rate about 80 beats per minute. S1, S2 normal. No distinct murmur. LUNGS: Reveal mostly clear breath sounds. A few scattered rhonchi at the right lung base. No wheezes or crackles. Left lung appears perfectly clear. ABDOMEN: Soft. Bowel sounds are heard. EXTREMITIES are intact. Mild edema. SKIN: Without rash. NEUROLOGIC: Examination is difficult to assess but appears to be relatively nonfocal. LABORATORY DATA: White count 9.1, hemoglobin 11.9, hematocrit 38.6, platelet count 368,000. PTT is 58.1. Sodium 139, potassium 3.8, chloride 113, CO2 24, anion gap is 2, BUN and creatinine were 16 and 0.75. Glucose 107, calcium AST 60, ALT 107. LDH was 622. Microbiology including blood cultures were negative. No recent x-rays. The patient had a Doppler on February 12 which showed bilateral left greater than right DVT. Echocardiogram results were reviewed. CURRENT MEDICATIONS: Reviewed. The patient is on Unasyn per ID, vitamin C, aspirin, Cogentin, vitamin D3, Decadron, Depakote, Lasix, IV heparin, Dilaudid, nitroglycerin tablets, Protonix, Dilantin, propranolol, zinc, and Geodon. ASSESSMENT: 1. Left-sided pleural base mass of unclear etiology. This may represent malignancy. The patient will need an outpatient PET scan and may require a biopsy. 2. Possible infiltrate/pneumonia, right lower lobe, although patient asymptomatic from the pulmonary standpoint. 3. Positive Covid 19 test, although his initial Covid test was negative. 4. Lifelong nontobacco use. 5. Seizure disorder. 6. Mentally challenged. 7. Nausea, vomiting, and diarrhea, all improved, for which the patient was admitted, which may relate to his COVID-19 infection. 8. Bilateral left greater than right lower extremity deep venous thrombosis. 9. Rule out endocarditis. 10.Normal cardiac catheterization. 11.Free-flowing thrombus in the right ventricular outflow tract as seen on the transesophageal echocardiogram. PLAN: The patient is currently on IV heparin. Again, his saturations on room air are excellent. He denies all pulmonary complaints. He is currently on Unasyn. He is also on IV heparin. We will continue to follow. His Dopplers showed bilateral lower extremity DVTs. Again the hypercoagulable state may have been induced by his COVID-19 infection. MMODL / IJN: [id number] /
--- NOTE | 2020-02-15 17:05 | CT ---
EXAMINATION TYPE: CT angio chest DATE OF EXAM: 02/15/2020 COMPARISON: None HISTORY: New DVT, assess for PE. CT DLP: 417.2 mGycm Automated exposure control for dose reduction was used. CONTRAST: Performed with IV Contrast, patient injected with 100ml mL of Isovue 370. There are 3-D post processed images. Images were obtained from the thoracic inlet to the diaphragm wi th IV contrast. There are moderate bilateral pleural effusions. There is bilateral basilar pulmonary atelectasis. Hea rt size is fairly normal. There is no pericardial effusion. There are multiple filling defects in the pulmonary arteries involving upper and lower lobes bilatera lly. There are no hilar masses. There is no mediastinal adenopathy. Thoracic aorta is intact. There is no aneurysm or dissection. There is some spurring in the thoracic spine. There is no compression fracture. Sternum is intact. IMPRESSION: Multiple bilateral upper and lower lobe pulmonary emboli. Bilateral pleural effusions and basilar pulmonary atelectasis. Pleural fluid and atelectasis signific antly increased compared to the recent CT scan of 02/10/2020. This exam was discussed with the patient's nurse Cleo at 5:00 PM.
[2020-02-15 17:19] LABS: % Iron Saturation 17.14 (15.00-50.00); Iron 30 ug/dL (65-175); Total Iron Binding Capacity 175 ug/dL (228-460)
[2020-02-15 17:34] LABS: Ferritin 815.5 ng/mL (22.0-322.0); Folate, Serum 10.4 ng/mL
--- NOTE | 2020-02-15 17:59 | PN ---
PROGRESS NOTE DATE OF SERVICE: 02/15/2020 This 54-year-old gentleman was admitted elevated troponin and acute non ST elevation myocardial infarction. The cardiac cath showed normal coronary arteries. Patient also had COVID-19 infection, acute. Patient also had bilateral leg DVT. Patient also had right ventricular thrombus. Patient started on IV heparin. Dr. Le and multiple consultants following the patient closely. Hematology/Oncology is also following the patient. The patient had multiple coagulopathic complications of COVID-19. Patient closely monitored. PAST MEDICAL HISTORY: Reviewed. REVIEW OF SYSTEMS: Could not be taken, the patient is mildly confused. CURRENT MEDICATIONS: Reviewed and include Unasyn IV, vitamin C, aspirin, Cogentin, Hexadrol, Depakote, Lasix, heparin IV, Dilantin. Doses reviewed. PHYSICAL EXAM: Patient is alert and oriented x2. Pulse 83, blood pressure 120/90, respirations 16, temperature 97.6, pulse ox 97% on room air. HEENT: Conjunctivae normal. Oral mucosa moist. NECK: No jugular venous distention. No lymph node enlargement. CARDIOVASCULAR: S1, S2, muffled. No S3, no S4, RESPIRATORY: Diminished breath sounds at the bases. Scattered rhonchi and crackles. ABDOMEN: Soft, nontender. LEGS: Bilateral leg edema. NERVOUS SYSTEM: Diffusely weak. LABS: WBC 9.2, hemoglobin 11.9, APTT noted. Glucose is 101, calcium is 8 and AST 60, ALT is 707, alkaline phosphatase is noted. LDH noted. ASSESSMENT: 1. Acute COVID-19 infection with right lower pneumonia with COVID-19 interstitial viral pneumonia. 2. Bilateral leg deep venous thrombosis, possibly secondary to COVID-19 on IV heparin. 3. Acute right ventricular outlet thrombosis secondary to COVID-19 possibly, on IV heparin. 4. Chest pain and elevated troponin, possible acute xqh-GO-zsfzigr-elevation myocardial infarction or COVID-19 induced myocarditis with thrombosis status post cardiac catheterization. 5. Status post transesophageal echocardiogram. 6. Cardiac cath showing normal coronary arteries. 7. Left-sided pleural-based mass. 8. Elevated creatinine with acute renal failure with possible acute tubular necrosis with prerenal factors. 9. Elevated D-dimer with no evidence of acute pulmonary embolism. 10.Hyperkalemia secondary to renal failure. 11.Increased WBC. 12.Seizure disorder. 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 14.History of hernia repair. 15.History of degenerative joint disease. 16.History of anxiety. 17.History of mentally challenged. 18.FULL CODE. RECOMMENDATIONS AND DISCUSSION: Recommend to continue current management and continue symptomatic treatment. Continue with IV heparin. Continue with antibiotics. Otherwise, prognosis guarded because of multiple complex medical issues. Further recommendations to follow. MMODL / IJN: [id number] /
--- NOTE | 2020-02-15 18:06 | P.PN ---
Progress Note - Text Progress Note Date: 02/15/20 Spoke with Guardian (sister) and RN today. CTA reveals multiple upper and lower lobe pulmonary emboli. Patient does continue on heparin drip, hemoglobin stable and CMP improved from admission. Reviewed cardiology note. It appears this is hypercoagulable due to COVID, and will need close monitoring. Sister is concerned as she has noticed recent 20lb weight loss (pre covid) as well as, limping and back pain. On CT abdomen and Pelvis on initial admission there was a LLL 3/1.7cm mass noted, CTA from today did not mention this, although will further discuss with radiology. Bilateral atelectasis ans pleural effusions appear to be significantly increased. Will discuss with ID regarding treatment options for underlying infection of COvid, unsure he would be a candidate given his initial positive covid test was on December 23. Continue heparin drip at this time for safety and easy manipulation given any unforeseen emergent situations.
[2020-02-15 19:49] LABS: INR 1.1 (<1.2); Prothrombin Time 11.3 sec (9.0-12.0)
[2020-02-15] MEDS: PHENYTOIN SODIUM EXTENDED 100 MG CAP PO SCH (20:30)
[2020-02-15] MEDS: ZIPRASIDONE 40 MG CAP PO SCH (20:31)
--- NOTE | 2020-02-15 22:20 | PN ---
PROGRESS NOTE DATE OF SERVICE: 02/15/2020 REASON FOR FOLLOWUP: Pneumonia. INTERVAL HISTORY: The patient is currently afebrile. Patient is breathing more comfortably currently on room air. Denies having any chest pain or shortness of breath. Minimal cough. No abdominal pain. No diarrhea. PHYSICAL EXAMINATION: Blood pressure 129/85 with a pulse of 86, temperature 99.9. He is 99% on room air. General description: The patient is an elderly male up in the chair in no distress. Respiratory system: Unlabored breathing, decreased breath sounds in the base, with no wheeze. Heart S1, S2. Regular rate and rhythm. ABDOMEN: Soft, no tenderness. LABS: Hemoglobin 11.8, white count 9.1. BUN of 16, creatinine 0.75. DIAGNOSTIC IMPRESSION AND PLAN: Patient with a fever with concerning for pneumonia in this patient who did have evidence of bilateral pulmonary embolism on the recent CT. The patient is covered with Zosyn at this point. Patient covered with Unasyn to continue and monitor clinical course closely. MMODL / IJN: [id number] /
[2020-02-16] MEDS: HEPARIN SOD,PORK IN 0.45% NACL 25,000 UNIT in 0.45% NACL 1 250ML.BAG IV SCH (02:25)
[2020-02-16] MEDS: AMPICILLIN-SULBACTAM 3 GM in SODIUM CHLORIDE 0.9% 100 ML IVPB SCH ×4 (03:09→20:23)
[2020-02-16] MEDS: ZIPRASIDONE 20 MG CAP PO SCH (06:05)
[2020-02-16] MEDS: PROPRANOLOL 40 MG TAB PO SCH ×2 (06:05→20:23)
[2020-02-16] MEDS: BENZTROPINE MESYLATE 0.5 MG TAB PO SCH ×2 (06:05→20:23)
[2020-02-16] MEDS: DIVALPROEX 500 MG TABLET.DR PO SCH ×2 (06:05→20:23)
[2020-02-16] MEDS: SODIUM CHLORIDE 0.9% 1,000 ML IV SCH ×2 (06:07→20:23)
[2020-02-16 07:36] LABS: HCT 35.5 % (39.0-53.0); HGB 11.2 gm/dL (13.0-17.5); Hypochromasia Slight; MCH 30.4 pg (25.0-35.0); MCHC 31.6 g/dL (31.0-37.0); MCV 96.2 fL (80.0-100.0); Mean Platelet Volume 7.7; Platelet Count 452 k/uL (150-450); RBC 3.69 m/uL (4.30-5.90); RDW 13.1 % (11.5-15.5); WBC 8.5 k/uL (3.8-10.6)
[2020-02-16 08:11] LABS: Band Neutrophils % 2 %; Eosinophils # (M) 0.09 k/uL (0-0.7); Lymphocytes # (M) 2.55 k/uL (1.0-4.8); Metamyelocytes # (M) 0.26 k/uL (0); Metamyelocytes % 3 %; Monocytes # (M) 0.51 k/uL (0-1.0); Myelocytes # (M) 0.34 k/uL (0); Myelocytes % 4 %; Neutrophils % (M) 57 %; Nucleated Red Blood Cells 0 /100 WBC (0-0); Total Cells Counted 200
[2020-02-16 08:20] LABS: Polychromasia Present
[2020-02-16] MEDS: ASCORBIC ACID 500 MG TAB PO SCH (08:37)
[2020-02-16] MEDS: CHOLECALCIFEROL 1,000 UNIT TAB PO SCH (08:37)
[2020-02-16] MEDS: dexAMETHasone 2 MG TAB PO SCH (08:37)
[2020-02-16] MEDS: ASPIRIN 325 MG TAB PO SCH (08:37)
[2020-02-16] MEDS: ZINC SULFATE 220 MG CAP PO SCH (08:37)
[2020-02-16] MEDS: FUROSEMIDE 20 MG TAB PO SCH (08:37)
[2020-02-16] MEDS: PANTOPRAZOLE 40 MG/10 ML VIAL IVP SCH ×2 (08:37→20:23)
--- NOTE | 2020-02-16 12:38 | P.PN ---
Subjective Progress Note Date: 02/16/20 Principal diagnosis: Covid and hypercoaguable Further testing with Antiphospholipi and cardiolipin ordered to assess for appropriate AC therapy, continue on heparin until resulted. He remains happy and unaffected by current medical findings. incidental mass found on imaging, review of dictation from pulmonology and agree with PET scan as outpatient to further evaluate. Objective - Vital Signs Vital signs: Vital Signs Temp 97.8 F 02/16/20 08:00 Pulse 81 02/16/20 08:00 Resp 20 02/16/20 08:00 BP 121/75 02/16/20 08:00 Pulse Ox 95 02/16/20 08:00 Intake & Output 02/15/20 02/16/20 02/16/20 18:59 06:59 18:59 Intake Total 490 443.112 85.644 Output Total 425 1850 325 Balance 65 -1406.888 -239.356 Weight 76 kg Intake: Intake, IV Titration 250 203.112 85.644 Amount Heparin Sod,Pork in 0.45% 250 203.112 85.644 NaCl 25,000 unit In 0.45 % NaCl 1 250ml.bag @ 18 UNITS/KG/HR 19.44 mls/hr IV .[id number] [facility] Rx#: [id number] Oral 240 240 Output: Urine 425 1850 325 Other: Voiding Method Toilet # Voids 1 - Exam Constitutional General appearance: cooperative, no acute distress - EENT Eyes: poor dentition - Respiratory Respiratory: bilateral: diminished - Cardiovascular Rhythm: irregularly irregular leg Peripheral Edema: bilateral: 2+ - Gastrointestinal General gastrointestinal: soft - Integumentary Integumentary: pale - Neurologic non focal - Musculoskeletal Musculoskeletal: strength equal bilaterally - Psychiatric Baseline - Labs CBC & Chem 7: 02/16/20 07:03 02/15/20 06:33 Labs: Abnormal Lab Results - Last 24 Hours (Table) 02/15/20 02/15/20 02/16/20 Range/Units 06:33 19:13 07:03 RBC 3.69 L (4.30-5.90) m/uL Hgb 11.2 L (13.0-17.5) gm/dL Hct 35.5 L (39.0-53.0) % Plt Count 452 H (150-450) k/uL Metamyelocytes # (Man) 0.26 H (0) k/uL Myelocytes # (Manual) 0.34 H (0) k/uL APTT (22.0-30.0) sec D-Dimer 5.81 H (<0.60) mg/L FEU Iron 30 L (65-175) ug/dL TIBC 175 L (228-460) ug/dL Ferritin 815.5 H (22.0-322.0) ng/mL Vitamin B12 1448.0 H (200.0-944.0) pg/mL 02/16/20 Range/Units 07:03 RBC (4.30-5.90) m/uL Hgb (13.0-17.5) gm/dL Hct (39.0-53.0) % Plt Count (150-450) k/uL Metamyelocytes # (Man) (0) k/uL Myelocytes # (Manual) (0) k/uL APTT 66.5 H (22.0-30.0) sec D-Dimer (<0.60) mg/L FEU Iron (65-175) ug/dL TIBC (228-460) ug/dL Ferritin (22.0-322.0) ng/mL Vitamin B12 (200.0-944.0) pg/mL Microbiology - Last 24 Hours (Table) 02/10/20 18:38 Blood Culture - Preliminary Blood No Growth after 120 hours Assessment and Plan (1) Normocytic anemia Current Visit: Yes Status: Acute Code(s): D64.9 - ANEMIA, UNSPECIFIED SNOMED Code(s): 606028431 (2) Liver function study, abnormal Current Visit: Yes Status: Acute Code(s): R94.5 - ABNORMAL RESULTS OF LIVER FUNCTION STUDIES SNOMED Code(s): 671734900 (3) DVT (deep venous thrombosis) Current Visit: Yes Status: Acute Code(s): I82.409 - ACUTE EMBOLISM AND THOMBOS UNSP DEEP VN UNSP LOWER EXTREMITY SNOMED Code(s): 969243253 (4) NSTEMI (non-ST elevated myocardial infarction) Current Visit: Yes Status: Acute Code(s): I21.4 - NON-ST ELEVATION (NSTEMI) MYOCARDIAL INFARCTION SNOMED Code(s): 59621942 (5) Ventricular thrombus following IA (myocardial infarction) Current Visit: Yes Status: Acute Code(s): I23.6 - THOMBOS OF [facility]/AURIC APPEND/VENTR CURRENT COMP FOL AMI SNOMED Code(s): 395457855 Plan: - Cardiology management - Continue Heparin Drip with Acute Covid infection and risk of worsening anemia - Monitor CBC, stable at this time, will further evaluate - CTA to assess for PE - Once Stable can convert to DOAC, length of therapy to be determined - Continue close monitoring for microvascular angiopathies - Hypercoaguable secondary to Covid - Monitoring of coags, CBC, and CMP - Monitor D-dimer at this point should continue to decrease, further increase can be concerning for poorer prognosis. - At this time remains stable. - Hypercoag partial work-up ordered today, continue on heparin drip until resulted. - Agree with pulmonary and follow-up with PET scan for incidental mass. Await Partial hypercoag work-up prior to determining PO AC therapy.
[2020-02-16 13:48] VITALS: BMI 27.0
--- NOTE | 2020-02-16 14:47 | P.PN ---
Subjective Progress Note Date: 02/16/20 Principal diagnosis: Acute pulmonary embolism. And DVT. Patient was reevaluated today on 02/16/2020, patient remains on room air, O2 saturations 98%, he is hemodynamically stable, and he is being followed by many consultants regarding his DVT, pulmonary embolism, covid 19 infection, and bilateral pleural effusions. Patient is being tested for antiphospholipid antibody, and cardiolipin antibody. This is being addressed by hematology on the case, I went ahead in the meantime and recommended switching the patient from heparin to eliquis. And as far as his questionable left lower lobe mass which is pleural-based, this needs to be eventually addressed on an outpatient basis. May require CT-guided needle biopsy, however would recommend a PET scan before I would proceed that trial. Today's CBC is normal. D-dimer today is 5.81 and PTT is therapeutic at 66.5. Patient is relatively asymptomatic. Objective - Vital Signs Vital signs: Vital Signs Temp 97.3 F L 02/16/20 13:00 Pulse 83 02/16/20 13:00 Resp 20 02/16/20 13:00 BP 125/79 02/16/20 13:00 Pulse Ox 98 02/16/20 13:00 Intake & Output 02/15/20 02/16/20 02/16/20 18:59 06:59 18:59 Intake Total 490 443.112 85.644 Output Total 425 1850 325 Balance 65 -1406.888 -239.356 Weight 76 kg 76 kg Intake: Intake, IV Titration 250 203.112 85.644 Amount Heparin Sod,Pork in 0.45% 250 203.112 85.644 NaCl 25,000 unit In 0.45 % NaCl 1 250ml.bag @ 18 UNITS/KG/HR 19.44 mls/hr IV .[id number] [facility] Rx#: [id number] Oral 240 240 Output: Urine 425 1850 325 Other: Voiding Method Toilet # Voids 1 - Exam Physical Exam: Revealed a 54-year-old male in no distress. Head: Atraumatic, normocephalic. HEENT:[Neck is supple.] [No neck masses.] [No thyromegaly.] [No JVD.] Chest: [Clear throughout, no crackles, no rhonchi, no wheezes.] Cardiac Exam: [Normal S1 and S2, no S3 gallop, 2/6 systolic murmur thought the precordium. Abdomen: [Soft, nontender, no megaly, no rebound, no guarding, normal bowel sounds.] Extremities: [No clubbing, no edema, no cyanosis.] Neurological Exam: [No focal neurologic deficit.] Psychiatric: Normal mood affect and normal mental status examination. - Labs CBC & Chem 7: 02/16/20 07:03 02/15/20 06:33 Labs: Abnormal Lab Results - Last 24 Hours (Table) 02/15/20 02/15/20 02/16/20 Range/Units 06:33 19:13 07:03 RBC 3.69 L (4.30-5.90) m/uL Hgb 11.2 L (13.0-17.5) gm/dL Hct 35.5 L (39.0-53.0) % Plt Count 452 H (150-450) k/uL Metamyelocytes # (Man) 0.26 H (0) k/uL Myelocytes # (Manual) 0.34 H (0) k/uL APTT (22.0-30.0) sec D-Dimer 5.81 H (<0.60) mg/L FEU Iron 30 L (65-175) ug/dL TIBC 175 L (228-460) ug/dL Ferritin 815.5 H (22.0-322.0) ng/mL Vitamin B12 1448.0 H (200.0-944.0) pg/mL 02/16/20 Range/Units 07:03 RBC (4.30-5.90) m/uL Hgb (13.0-17.5) gm/dL Hct (39.0-53.0) % Plt Count (150-450) k/uL Metamyelocytes # (Man) (0) k/uL Myelocytes # (Manual) (0) k/uL APTT 66.5 H (22.0-30.0) sec D-Dimer (<0.60) mg/L FEU Iron (65-175) ug/dL TIBC (228-460) ug/dL Ferritin (22.0-322.0) ng/mL Vitamin B12 (200.0-944.0) pg/mL Microbiology - Last 24 Hours (Table) 02/10/20 18:38 Blood Culture - Preliminary Blood No Growth after 120 hours Assessment and Plan Assessment: Impression: Acute bilateral pulmonary embolism Acute deep vein thrombosis Interventricular thrombus, noted in the right ventricular outflow tract. Based on transesophageal echocardiogram Hypercoagulable state most likely triggered by covid 19 infection. Possible peripheral left lung mass, needs to be addressed on an outpatient basis. Will definitely recommend a PET scan on outpatient basis and possibly a CT-guided biopsy. Acute Covid 19 infection History of seizure disorder. Normal cardiac catheterization. Recommendation: Would recommend transitioning patient from heparin to eliquis Continue present supportive care measures. Outpatient follow-up post discharge with Dr. Rodriguez We'll continue to follow. Time with Patient: Less than 30
--- NOTE | 2020-02-16 16:07 | PN ---
PROGRESS NOTE DATE OF SERVICE: 02/16/2020 This 54-year-old gentleman who was admitted with acute COVID-19 infection right lower pneumonia is being closely monitored. Patient also has bilateral leg DVT. The patient also had acute right ventricular thrombus secondary to COVID-19. Patient is on IV heparin at this time. The patient IS being closely monitored at this time. Chest CTA was done yesterday which was reviewed personally by me showed multiple bilateral upper and lower lobe pulmonary emboli and bilateral pleural effusions also. As mentioned earlier, patient is already on IV heparin. PAST MEDICAL HISTORY: Reviewed. REVIEW OF SYSTEMS: CARDIOVASCULAR SYSTEM: As mentioned earlier. RESPIRATORY SYSTEM: As mentioned earlier. GI: As mentioned earlier. : No dysuria. NERVOUS SYSTEM: No numbness or weakness. CURRENT MEDICATIONS: Current medications are reviewed and include: Vitamin C, Unasyn, Depakote, Lasix, heparin. PHYSICAL EXAMINATION: Patient is alert and oriented x3. Pulse is 83, blood pressure 125/79, respirations 20, temperature 97.3, pulse ox 98% on room air. HEENT: Conjunctivae normal. NECK: No jugular venous distention. CARDIOVASCULAR: S1, S2 muffled. RESPIRATORY: Breath sounds diminished at the bases. A few scattered rhonchi. ABDOMEN: Soft. NERVOUS SYSTEM: Diffusely weak. LABS: WBC 8.5, hemoglobin 11.2. D-dimer is 5.81. Other labs are reviewed. Inflammatory markers of COVID-19 still elevated. ASSESSMENT: 1. Acute COVID-19 infection with right lower lobe pneumonia with COVID-19 interstitial viral pneumonia. 2. Bilateral leg deep vein thrombosis, possibly secondary to COVID-19 and as well as acute bilateral pulmonary embolism on IV heparin. 3. Acute right ventricular outlet thrombosis secondary to COVID-19 possibly, on IV heparin. 4. Chest pain and elevated troponin possibly acute euc-MN-jamtpkw-elevation myocardial infarction or COVID-19 induced myocarditis or thrombosis status post cardiac catheterization. 5. Status post WILFRED. 6. History of cardiac cath showing normal coronary arteries. 7. Left-sided pleural based mass probably. 8. Elevated creatinine with acute renal failure with possible acute tubular necrosis with prerenal factors. 9. Elevated D-dimer, present on admission. 10.Hyperkalemia secondary to renal failure. 11.Increased WBC. 12.Seizure disorder history. 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 14.History of hernia repair. 15.History of degenerative joint disease. 16.History of anxiety. 17.History of mentally challenged. 18.FULL CODE. RECOMMENDATIONS AND DISCUSSION: Recommend to continue current medications. Continue symptomatic treatment. Continue with IV heparin. Continue the rest of the medications. Repeat labs. Prognosis guarded because of multiple complex medical issues. Further recommendations to follow. Prognosis guarded. See orders for details. MMODL / IJN: [id number] /
[2020-02-16] MEDS: FUROSEMIDE 40 MG TAB PO SCH (17:13)
[2020-02-16 17:31] LABS: Cardiolipin Ab IgG Interp NEGATIVE (NEGATIVE); Cardiolipin Ab IgM Interp NEGATIVE (NEGATIVE); Cardiolipin IgA Antibody 0.8 U/mL; Cardiolipin IgM Antibody 0.5 U/mL
[2020-02-16] MEDS: APIXABAN 5 MG TAB PO SCH (20:22)
[2020-02-16] MEDS: ZIPRASIDONE 40 MG CAP PO SCH (20:23)
[2020-02-16] MEDS: PHENYTOIN SODIUM EXTENDED 100 MG CAP PO SCH (20:23)
--- NOTE | 2020-02-16 23:26 | PN ---
PROGRESS NOTE DATE OF SERVICE: 02/16/2020 REASON FOR FOLLOWUP: Pneumonia. INTERVAL HISTORY: Patient is currently afebrile. The patient is breathing more comfortably. Patient denies having any chest pain or shortness of breath. Minimal cough. No abdominal pain or diarrhea. PHYSICAL EXAMINATION: Blood pressure 120/81, pulse 84, temperature 99.7. He is 95% on room air. General description is a middle-aged male up in the chair in no distress. Respiratory system: Unlabored breathing. Decreased breath sounds in the bases. No wheeze. Heart S1, S2. Regular rate and rhythm. Abdomen soft. No tenderness. LABS: Hemoglobin is 11.1, white count 8.5. Blood culture has been negative. No sputum was collected. DIAGNOSTIC IMPRESSION AND PLAN: Patient admitted to the hospital with fever, multifactorial in this patient with a component of pneumonia, question aspiration. Patient is covered with Unasyn with overall resolution of his fever to continue. Finish therapy with oral Augmentin. Continue supportive care. MMODL / IJN: [id number] /
[2020-02-17] MEDS: AMPICILLIN-SULBACTAM 3 GM in SODIUM CHLORIDE 0.9% 100 ML IVPB SCH ×4 (03:11→20:11)
[2020-02-17] MEDS: BENZTROPINE MESYLATE 0.5 MG TAB PO SCH ×2 (06:14→21:22)
[2020-02-17] MEDS: ZIPRASIDONE 20 MG CAP PO SCH (06:14)
[2020-02-17] MEDS: PROPRANOLOL 40 MG TAB PO SCH ×2 (06:14→21:22)
[2020-02-17] MEDS: DIVALPROEX 500 MG TABLET.DR PO SCH ×2 (06:14→20:11)
[2020-02-17] MEDS: PANTOPRAZOLE 40 MG/10 ML VIAL IVP SCH (09:33)
[2020-02-17] MEDS: ZINC SULFATE 220 MG CAP PO SCH (09:34)
[2020-02-17] MEDS: ASCORBIC ACID 500 MG TAB PO SCH (09:34)
[2020-02-17] MEDS: APIXABAN 5 MG TAB PO SCH ×2 (09:34→20:11)
[2020-02-17] MEDS: FUROSEMIDE 40 MG TAB PO SCH ×2 (09:34→16:25)
[2020-02-17] MEDS: dexAMETHasone 2 MG TAB PO SCH (09:34)
[2020-02-17] MEDS: CHOLECALCIFEROL 1,000 UNIT TAB PO SCH (09:34)
[2020-02-17] MEDS: ASPIRIN 325 MG TAB PO SCH (09:35)
[2020-02-17 10:11] LABS: APTT 144 Sec(s) (<43); APTT 1:1 Mix 85 Sec(s) (<43); DRVVT 1:1 Mix 42 Sec(s) (<44); Dilute Russell Viper Venom 48 Sec(s) (<44); Hexagonal Phase Neutralization Positive (Negative)
--- NOTE | 2020-02-17 15:30 | PN ---
PROGRESS NOTE DATE OF SERVICE: 02/17/2020 This 54-year-old gentleman, admitted with COVID-19 pneumonia, also had multiple thrombotic complications, including DVT, history of right ventricle thrombus and acute pulmonary embolism. Patient is on IV heparin. Eliquis has been initiated at this time. Chest CT was reviewed. Multiple consultants are following the patient closely. Past medical history reviewed. REVIEW OF SYSTEMS: CARDIOVASCULAR SYSTEM: No angina, palpitations. RESPIRATORY SYSTEM: As mentioned earlier. GI: As mentioned earlier. : No dysuria or retention. NERVOUS SYSTEM: No numbness, weakness. CURRENT MEDICATIONS: Reviewed. They include Unasyn, vitamin C, aspirin, Cogentin, vitamin D3, Hexadrol, Depakote. Doses are reviewed. PHYSICAL EXAMINATION: Patient is alert, oriented x2. Pulse is 88, blood pressure 130/80, respiration 20, temperature 98.4, pulse ox 97% on room air. HEENT: Conjunctivae normal. NECK: No jugular venous distention. CARDIOVASCULAR SYSTEM: S1, S2 muffled. RESPIRATORY SYSTEM: Breath sounds diminished at the bases. A few scattered rhonchi and crackles. ABDOMEN: Soft. LEGS: No edema. No swelling. NERVOUS SYSTEM: No focal deficit. LABS: WBC 8.5, hemoglobin 11.2. APTT is 66.5. 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 Lupus Anticoagulant aPTT is also positive. D-dimer is elevated. Anti-Cardiolipin antibodies are negative ASSESSMENT: 1. Acute COVID-19 infection with right lower lobe pneumonia with COVID-19 interstitial viral pneumonia. 2. Bilateral leg deep vein thrombosis, possibly secondary to COVID-19 as well as acute bilateral pulmonary embolism, on IV heparin. 3. Acute right ventricular thrombus secondary to COVID-19 possibly, on IV heparin. 4. Lupus Anticoagulant positive. 5. Chest pain, elevated troponin; possibly acute diz-SL-eixqjww-elevation myocardial infarction or [id number]-[id number]-xhfopcc myocarditis with thrombosis, status post cardiac catheterization which is negative. 6. Status post transesophageal echocardiogram. 7. Left-sided pleural-based mass probably. 8. Elevated creatinine with acute renal failure with possible acute tubular necrosis with prerenal factors. 9. Elevated D-dimer, present on admission. 10.Hyperkalemia secondary to renal failure. 11.Increased white count. 12.Seizure disorder history. 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 14.History of hernia repair. 15.History of degenerative joint disease. 16.History of anxiety. 17.History of mentally challenged. 18.FULL CODE. RECOMMENDATIONS AND DISCUSSION: I recommend to continue current medications, continue symptomatic treatment. Continue with anticoagulation Eliquis. Otherwise, closely follow with Hematology/Oncology. Guarded prognosis because of multiple complex medical issues. Further recommendations to follow. MMODL / IJN: [id number] /
--- NOTE | 2020-02-17 15:38 | P.PN ---
Subjective Progress Note Date: 02/17/20 Principal diagnosis: Acute pulmonary embolism. And DVT. Patient was reevaluated today on 02/16/2020, patient remains on room air, O2 saturations 98%, he is hemodynamically stable, and he is being followed by many consultants regarding his DVT, pulmonary embolism, covid 19 infection, and bilateral pleural effusions. Patient is being tested for antiphospholipid antibody, and cardiolipin antibody. This is being addressed by hematology on the case, I went ahead in the meantime and recommended switching the patient from heparin to eliquis. And as far as his questionable left lower lobe mass which is pleural-based, this needs to be eventually addressed on an outpatient basis. May require CT-guided needle biopsy, however would recommend a PET scan before I would proceed that trial. Today's CBC is normal. D-dimer today is 5.81 and PTT is therapeutic at 66.5. Patient is relatively asymptomatic. Patient was reevaluated today on 02/17/2020, patient remains on the regular medical floor, he was already transitioned to eliquis, patient seems to be in no form of distress. Labs including CBC, patient was found to have positive lupus anticoagulants. Hence we will likely need to be on anticoagulation therapy lifetime. Objective - Vital Signs Vital signs: Vital Signs Temp 98.4 F 02/17/20 11:33 Pulse 88 02/17/20 11:33 Resp 20 02/17/20 11:33 BP 138/88 02/17/20 11:33 Pulse Ox 97 02/17/20 11:33 Intake & Output 02/16/20 02/17/20 02/17/20 18:59 06:59 18:59 Intake Total 1285.684 240 360 Output Total 700 1800 200 Balance 585.684 -1560 160 Weight 76 kg 80.5 kg Intake: IV 720.04 Ampicillin-Sulbactam 3 gm 100 In Sodium Chloride 0.9% 100 ml @ 200 mls/hr IVPB Q6H [facility] Rx#:[id number] Heparin Sod,Pork in 0.45% 95.04 NaCl 25,000 unit In 0.45 % NaCl 1 250ml.bag @ 18 UNITS/KG/HR 19.44 mls/hr IV .[id number] [facility] Rx#: [id number] Sodium Chloride 0.9% 1, 525 000 ml @ 75 mls/hr IV . [id number] [facility] Rx#:[id number] Intake, IV Titration 85.644 Amount Heparin Sod,Pork in 0.45% 85.644 NaCl 25,000 unit In 0.45 % NaCl 1 250ml.bag @ 18 UNITS/KG/HR 19.44 mls/hr IV .[id number] [facility] Rx#: [id number] Oral 480 240 360 Output: Urine 700 1800 200 Other: # Voids 1 1 # Bowel Movements 1 - Exam Physical Exam: Revealed a 54-year-old male in no distress. Head: Atraumatic, normocephalic. HEENT:[Neck is supple.] [No neck masses.] [No thyromegaly.] [No JVD.] Chest: [Clear throughout, no crackles, no rhonchi, no wheezes.] Cardiac Exam: [Normal S1 and S2, no S3 gallop, 2/6 systolic murmur thought the precordium. Abdomen: [Soft, nontender, no megaly, no rebound, no guarding, normal bowel sounds.] Extremities: [No clubbing, no edema, no cyanosis.] Neurological Exam: [No focal neurologic deficit.] Psychiatric: Normal mood affect and normal mental status examination. - Labs CBC & Chem 7: 02/16/20 07:03 02/15/20 06:33 Labs: Abnormal Lab Results - Last 24 Hours (Table) 02/16/20 02/16/20 Range/Units 07:03 15:11 APTT 46.3 H (22.0-30.0) sec Lupus Anticoag aPTT 144 H (<43) Sec(s) Lupus Anticoag PTT Mix 85 H (<43) Sec(s) Dil Art Viper Venom 48 H (<44) Sec(s) Lupus Hexagonal Phase Positive A (Negative) Microbiology - Last 24 Hours (Table) 02/10/20 18:38 Blood Culture - Final Blood No Growth after 144 hours Assessment and Plan Assessment: Impression: Acute bilateral pulmonary embolism Acute deep vein thrombosis Interventricular thrombus, noted in the right ventricular outflow tract. Based on transesophageal echocardiogram Hypercoagulable state most likely triggered by covid 19 infection. Possible peripheral left lung mass, needs to be addressed on an outpatient basis. Will definitely recommend a PET scan on outpatient basis and possibly a CT-guided biopsy. Acute Covid 19 infection History of seizure disorder. Normal cardiac catheterization. Recommendation: Continue all her questions. Continue present supportive care measures. Consider discharge planning and follow-up on outpatient basis with Dr. Rodriguez We'll continue to follow. Time with Patient: Less than 30
[2020-02-17] MEDS: PANTOPRAZOLE 40 MG TABLET PO SCH (16:25)
[2020-02-17] MEDS: SODIUM CHLORIDE 0.9% 1,000 ML IV SCH ×2 (17:47→21:22)
--- NOTE | 2020-02-17 20:03 | P.PN ---
Subjective Progress Note Date: 02/17/20 Principal diagnosis: Covid and hypercoaguable Patient remains asymptomatic and in good spirits, awaiting finalized hypercoag work-up Objective - Vital Signs Vital signs: Vital Signs Temp 97.6 F 02/17/20 16:00 Pulse 80 02/17/20 16:00 Resp 22 02/17/20 16:00 BP 138/94 02/17/20 16:00 Pulse Ox 100 02/17/20 16:00 Intake & Output 02/17/20 02/17/20 02/18/20 06:59 18:59 06:59 Intake Total 240 1450 Output Total 1800 200 Balance -1560 1250 Weight 80.5 kg Intake: Intake, IV Titration 650 Amount Ampicillin-Sulbactam 3 gm 200 In Sodium Chloride 0.9% 100 ml @ 200 mls/hr IVPB Q6H STACY Rx#:[id number] Sodium Chloride 0.9% 1, 450 000 ml @ 75 mls/hr IV . [id number] STACY Rx#:[id number] Oral 240 800 Output: Urine 1800 200 Other: # Voids 1 2 - Exam Constitutional General appearance: cooperative, no acute distress - EENT Eyes: poor dentition - Respiratory Respiratory: bilateral: diminished - Cardiovascular Rhythm: irregularly irregular leg Peripheral Edema: bilateral: 2+ - Gastrointestinal General gastrointestinal: soft - Integumentary Integumentary: pale - Neurologic non focal - Musculoskeletal Musculoskeletal: strength equal bilaterally - Psychiatric Baseline - Labs CBC & Chem 7: 02/16/20 07:03 02/15/20 06:33 Labs: Abnormal Lab Results - Last 24 Hours (Table) 02/16/20 Range/Units 07:03 Lupus Anticoag aPTT 144 H (<43) Sec(s) Lupus Anticoag PTT Mix 85 H (<43) Sec(s) Dil Art Viper Venom 48 H (<44) Sec(s) Lupus Hexagonal Phase Positive A (Negative) Microbiology - Last 24 Hours (Table) 02/10/20 18:38 Blood Culture - Final Blood No Growth after 144 hours Assessment and Plan (1) Normocytic anemia Current Visit: Yes Status: Acute Code(s): D64.9 - ANEMIA, UNSPECIFIED SNOMED Code(s): 068124396 (2) Liver function study, abnormal Current Visit: Yes Status: Acute Code(s): R94.5 - ABNORMAL RESULTS OF LIVER FUNCTION STUDIES SNOMED Code(s): 111828244 (3) DVT (deep venous thrombosis) Current Visit: Yes Status: Acute Code(s): I82.409 - ACUTE EMBOLISM AND THOMBOS UNSP DEEP VN UNSP LOWER EXTREMITY SNOMED Code(s): 687498416 (4) NSTEMI (non-ST elevated myocardial infarction) Current Visit: Yes Status: Acute Code(s): I21.4 - NON-ST ELEVATION (NSTEMI) MYOCARDIAL INFARCTION SNOMED Code(s): 19879785 (5) Ventricular thrombus following ID (myocardial infarction) Current Visit: Yes Status: Acute Code(s): I23.6 - THOMBOS OF ATRIUM/AURIC APPEND/VENTR CURRENT COMP FOL AMI SNOMED Code(s): 335037941 Plan: - Cardiology management - Continue Heparin Drip with Acute Covid infection and risk of worsening anemia - Monitor CBC, stable at this time, will further evaluate - CTA to assess for PE - Once Stable can convert to DOAC, length of therapy to be determined - Continue close monitoring for microvascular angiopathies - Hypercoaguable secondary to Covid - Monitoring of coags, CBC, and CMP - Monitor D-dimer at this point should continue to decrease, further increase can be concerning for poorer prognosis. - At this time remains stable. - Hypercoag partial work-up ordered today, continue on heparin drip until resulted. - Agree with pulmonary and follow-up with PET scan for incidental mass. Await Partial hypercoag work-up prior to determining PO AC therapy. Cardiolipin antibodies are negativ thus far.
[2020-02-17] MEDS: PHENYTOIN SODIUM EXTENDED 100 MG CAP PO SCH (20:11)
[2020-02-17] MEDS: ZIPRASIDONE 40 MG CAP PO SCH (21:22)
--- NOTE | 2020-02-17 23:06 | PN ---
PROGRESS NOTE DATE OF SERVICE: 02/17/2020 REASON FOR FOLLOWUP: Pneumonia. INTERVAL HISTORY: The patient is currently afebrile. The patient is breathing comfortably. Denies having any chest pain. No shortness of breath or cough. No nausea, vomiting. No abdominal pain. No diarrhea. PHYSICAL EXAMINATION: Blood pressure 138/94 with a pulse of 80. Temperature 97.6. He is 100% on room air. General description is a middle-aged male up in the chair in no distress. Respiratory system: Unlabored breathing, decreased breath sounds in the bases. No wheeze. Heart S1, S2. Regular rate and rhythm. Abdomen soft, no tenderness. LABS: Hemoglobin is 11.1, white count 8.5. Blood culture has been negative. DIAGNOSTIC IMPRESSION AND PLAN: Patient admitted to the hospital with fever, concerning for possible pneumonia with concern for possible cholecystitis. Patient is currently on Unasyn. Overall resolution of his fever. Finish a short course of oral Augmentin. Continue supportive care. MMODL / IJN: [id number] /
[2020-02-18] MEDS: AMPICILLIN-SULBACTAM 3 GM in SODIUM CHLORIDE 0.9% 100 ML IVPB SCH ×2 (04:59→09:14)
[2020-02-18] MEDS: PROPRANOLOL 40 MG TAB PO SCH (06:23)
[2020-02-18] MEDS: ZIPRASIDONE 20 MG CAP PO SCH (06:24)
[2020-02-18] MEDS: DIVALPROEX 500 MG TABLET.DR PO SCH (06:24)
[2020-02-18] MEDS: BENZTROPINE MESYLATE 0.5 MG TAB PO SCH (06:24)
[2020-02-18] MEDS: PANTOPRAZOLE 40 MG TABLET PO SCH ×2 (06:24→16:21)
[2020-02-18 09:05] VITALS: BP 123/87; PULSE 79; RESP 20; TEMP 97.6
[2020-02-18] MEDS: APIXABAN 5 MG TAB PO SCH (09:08)
[2020-02-18] MEDS: ZINC SULFATE 220 MG CAP PO SCH (09:08)
[2020-02-18] MEDS: ASCORBIC ACID 500 MG TAB PO SCH (09:09)
[2020-02-18] MEDS: dexAMETHasone 2 MG TAB PO SCH (09:09)
[2020-02-18] MEDS: CHOLECALCIFEROL 1,000 UNIT TAB PO SCH (09:09)
[2020-02-18] MEDS: ASPIRIN 325 MG TAB PO SCH (09:09)
[2020-02-18] MEDS: FUROSEMIDE 40 MG TAB PO SCH ×2 (09:09→16:21)
[2020-02-18] MEDS: SODIUM CHLORIDE 0.9% 1,000 ML IV SCH (12:37)
--- NOTE | 2020-02-18 14:17 | P.PN ---
Subjective Progress Note Date: 02/18/20 Principal diagnosis: Covid and hypercoaguable Still waiting on Lab to process the ordered beta 2 glycoprotein as lupus anticoag positive, although is not enough for diagnosis. The problem is that placing patient on a DOAC with an underlying Lupus, anti phospholipid, diagnosis this may not work, as the evidence is not indicated for this situation, hence why we are waiting to further switch from heparin to PO anticoagulation. Patient was switched to eliquis, although this maybe potentially ok will need to confirm the rest of thos hypercoaguable work-up is negative. Will need to watch for return of this lab result and if it does appear he have this contraindicated underlying issue he will need to be switched to lovenox or coumadin. Objective - Vital Signs Vital signs: Vital Signs Temp 97.6 F 02/18/20 08:00 Pulse 79 02/18/20 08:00 Resp 20 02/18/20 08:00 BP 123/87 02/18/20 08:00 Pulse Ox 97 02/18/20 08:00 Intake & Output 02/17/20 02/18/20 02/18/20 18:59 06:59 18:59 Intake Total 1450 930 444 Output Total 200 Balance 1250 930 444 Weight 76.5 kg Intake: IV 450 Sodium Chloride 0.9% 1, 450 000 ml @ 75 mls/hr IV . [id number] [facility] Rx#:[id number] Intake, IV Titration 650 Amount Ampicillin-Sulbactam 3 gm 200 In Sodium Chloride 0.9% 100 ml @ 200 mls/hr IVPB Q6H STAC[facility] Rx#:[id number] Sodium Chloride 0.9% 1, 450 000 ml @ 75 mls/hr IV . [id number] [facility]ACY Rx#:[id number] Oral 800 480 444 Output: Urine 200 Other: Voiding Method Toilet Urinal Incontinent # Voids 2 4 2 - Exam Constitutional General appearance: cooperative, no acute distress - EENT Eyes: poor dentition - Respiratory Respiratory: bilateral: diminished - Cardiovascular Rhythm: irregularly irregular leg Peripheral Edema: bilateral: 2+ - Gastrointestinal General gastrointestinal: soft - Integumentary Integumentary: pale - Neurologic non focal - Musculoskeletal Musculoskeletal: strength equal bilaterally - Psychiatric Baseline - Labs CBC & Chem 7: 02/16/20 07:03 02/15/20 06:33 Assessment and Plan (1) Normocytic anemia Current Visit: Yes Status: Acute Code(s): D64.9 - ANEMIA, UNSPECIFIED SNOMED Code(s): 462410930 (2) Liver function study, abnormal Current Visit: Yes Status: Acute Code(s): R94.5 - ABNORMAL RESULTS OF LIVER FUNCTION STUDIES SNOMED Code(s): 263600249 (3) DVT (deep venous thrombosis) Current Visit: Yes Status: Acute Code(s): I82.409 - ACUTE EMBOLISM AND THOMBOS UNSP DEEP VN UNSP LOWER EXTREMITY SNOMED Code(s): 607700673 (4) NSTEMI (non-ST elevated myocardial infarction) Current Visit: Yes Status: Acute Code(s): I21.4 - NON-ST ELEVATION (NSTEMI) MYOCARDIAL INFARCTION SNOMED Code(s): 32598721 (5) Ventricular thrombus following SC (myocardial infarction) Current Visit: Yes Status: Acute Code(s): I23.6 - THOMBOS OF ATRIUM/AURIC APPEND/VENTR CURRENT COMP FOL AMI SNOMED Code(s): 019576288 Plan: Still awaiting beta 2 glycoprotein to result, if positive DOAC is not indicated and will need to be switched to warfarin, lovenox. COntinue to await labs. Physician Attest: I have completed the full history and physical and agree with above dictation, dictated as a scribe.
--- NOTE | 2020-02-18 15:13 | P.DS ---
Providers Date of admission: 02/10/20 12:54 Expected date of discharge: 02/18/20 Attending physician: Steven Avelar Consults: 02/10/20 13:14 Consult Physician Urgent Consulting Provider: Tr Steiner Consult Reason/Comments: Fever, abdominal pain Do you want consulting provider notified?: Yes 02/10/20 13:15 Consult Physician Urgent Consulting Provider: Phong Le Consult Reason/Comments: NSTEMI Do you want consulting provider notified?: Yes 02/10/20 17:22 Consult Physician Routine Consulting Provider: Giuseppe Paula Consult Reason/Comments: covid-19? Do you want consulting provider notified?: Yes Consult Physician Routine Consulting Provider: Daniel Chaney Consult Reason/Comments: remdesivir? Do you want consulting provider notified?: Yes 02/14/20 13:43 Consult Physician Routine Consulting Provider: Wade Malone Consult Reason/Comments: rv thrombus, covid hypercoagulability Do you want consulting provider notified?: Yes Primary care physician: Frida Dumas Hospital Course: Final diagnosis Acute Covid 19 infection with right lower lobe pneumonia with Covid 19 interstitial viral pneumonia Bilateral leg deep vein thrombosis, possibly secondary to Covid 19 as well as acute bilateral pulmonary embolism on IV heparin Acute right ventricular thrombus secondary to Covid 19 possibly, on IV heparin Lupus anticoagulant positive Chest pain, elevated troponin, possibly acute non-ST segment elevation myocardial infarction or Covid 19-induced myocarditis with thrombosis, status post cardiac catheterization which is negative Status post transesophageal echocardiogram Left-sided pleural-based mass probably Elevated creatinine with acute renal failure with possible acute tubular necrosis with prerenal factors Elevated d-dimer, present on admission Hyperkalemia secondary to renal failure Increased white blood count Seizure disorder history History of absence seizures History of hernia repair history of degenerative joint disease history of anxiety History of mentally challenged Full code Discharge disposition Patient is being discharged in a stable condition with guarded prognosis to home. Patient will continue with home care. Patient will follow-up with Dr. Dumas in the outpatient setting upon discharge. Patient will continue on oral antibiotics in the form of Augmentin twice daily for the next 5 days to complete the course along with dexamethasone 6 mg daily to finish the course. Patient also instructed to follow-up with Dr. Paula and hematology Dr. Malone in the outpatient setting this week. Total time taken is greater than 35 minutes. Hospital course This is a 54-year-old male who was recently admitted with shortness of breath and was found to have moderate pleural effusion on the left and was being closely monitored. Patient was also found to be Covid 19 positive. Patient was seen and evaluated by pulmonary along with hematology and patient is currently maintained on Eliquis along with aspirin and will continue at this time. Pending labs on beta-2 glycoprotein and will follow-up with hematology this week at scheduled appointment as if this lab comes back positive patient will likely need to be switched to Lovenox, warfarin. Discussed with hematology and sister of the patient and appointment is scheduled. Currently no reports of chest pain, worsening shortness of breath, or palpitations. Patient is afebrile. No reports of nausea or vomiting and patient is tolerating diet. Patient will be discharged home today. Guarded prognosis. On exam vital signs are stable. Temp is 97.6F, pulse is 79, respirations are 20, blood pressure is 123/87, oxygen saturation is 97% on room air. Cardio S1, S2 are muffled. Respiratory system shows diminished breath sounds at the bases left more than the right with no wheezing or rhonchi noted. Abdomen is soft and nontender. Nervous system shows no focal deficits. Please refer to medication reconciliation sheet for a list of medications. Patient Condition at Discharge: Fair Plan - Discharge Summary New Discharge Prescriptions: New Apixaban [Eliquis Starter Pack (for VTE)] 0 mg PO DIRECTED 30 Days #1 pack Aspirin 325 mg PO DAILY 30 Days #30 tab Amoxic-Pot Clav 875-125Mg [Augmentin 875-125] 1 tab PO Q12HR 5 Days #10 tab dexAMETHasone [Hexadrol] 6 mg PO DAILY 4 Days #12 tab Furosemide [Lasix] 40 mg PO BID@0900,1600 30 Days #60 tab Nitroglycerin Sl Tabs [Nitrostat] 0.4 mg SUBLINGUAL Q5M PRN #30 tab PRN Reason: Chest Pain Zinc Sulfate [Orazinc] 220 mg PO DAILY 30 Days #30 cap Pantoprazole [Protonix] 40 mg PO DAILY 30 Days #30 tablet. Ascorbic Acid [Vitamin C] 1,000 mg PO DAILY 30 Days #60 tab Cholecalciferol [Vitamin D3 (25 Mcg = 1000 Iu)] 1,000 unit PO DAILY 30 Days #30 tab Continue Propranolol [Inderal] 20 mg PO BID@0630,2200 Phenytoin Sodium Extended [Dilantin] 200 mg PO HS@2200 Cimetidine [Tagamet] 400 mg PO BID@0630,2200 Ziprasidone [Geodon] 40 mg PO HS@2200 Ziprasidone HCl [Geodon] 20 mg PO DAILY@0630 Benztropine Mesylate [Cogentin] 0.5 mg PO BID@0630,2200 Divalproex [Depakote] 500 mg PO DAILY@0630 Divalproex [Depakote] 1,000 mg PO HS@2200 Discontinued Ranitidine HCl 150 mg PO BID Discharge Medication List Phenytoin Sodium Extended [Dilantin] 200 mg PO HS@2200 07/22/14 [History] Propranolol [Inderal] 20 mg PO BID@0630,2200 07/22/14 [History] Benztropine Mesylate [Cogentin] 0.5 mg PO BID@0630,2200 02/10/20 [History] Cimetidine [Tagamet] 400 mg PO BID@0630,2200 02/10/20 [History] Divalproex [Depakote] 1,000 mg PO HS@2200 02/10/20 [History] Divalproex [Depakote] 500 mg PO DAILY@30 02/10/20 [History] Ziprasidone HCl [Geodon] 20 mg PO DAILY@0630 02/10/20 [History] Ziprasidone [Geodon] 40 mg PO HS@219902/10/20 [History] Apixaban [Eliquis Starter Pack (for VTE)] 0 mg PO DIRECTED 30 Days #1 pack 02/16/20 [Rx] Amoxic-Pot Clav 875-125Mg [Augmentin 875-125] 1 tab PO Q12HR 5 Days #10 tab 02/18/20 [Rx] Ascorbic Acid [Vitamin C] 1,000 mg PO DAILY 30 Days #60 tab 02/18/20 [Rx] Aspirin 325 mg PO DAILY 30 Days #30 tab 02/18/20 [Rx] Cholecalciferol [Vitamin D3 (25 Mcg = 1000 Iu)] 1,000 unit PO DAILY 30 Days #30 tab 02/18/20 [Rx] Furosemide [Lasix] 40 mg PO BID@0900,1600 30 Days #60 tab 02/18/20 [Rx] Nitroglycerin Sl Tabs [Nitrostat] 0.4 mg SUBLINGUAL Q5M PRN #30 tab 02/18/20 [Rx] Pantoprazole [Protonix] 40 mg PO DAILY 30 Days #30 tablet. 02/18/20 [Rx] Zinc Sulfate [Orazinc] 220 mg PO DAILY 30 Days #30 cap 02/18/20 [Rx] dexAMETHasone [Hexadrol] 6 mg PO DAILY 4 Days #12 tab 02/18/20 [Rx] Follow up Appointment(s)/Referral(s): Giuseppe Paula MD [STAFF PHYSICIAN] - 04/05/20 9:15 am Wade Malone MD [STAFF PHYSICIAN] - 1 Week Suresh Regalado [NON-STAFF] - Frida Dumas DO [Primary Care Provider] - 02/23/20 2:40 pm Patient Instructions/Handouts: Heart Attack (DC), Pulmonary Embolism (DC), Viral Pneumonia (DC) Activity/Diet/Wound Care/Special Instructions: Activity Limited until follow-up follow up with primary care provider upon discharge need to follow up with Dr. Malone next week for lab work follow up on beta 2 glycoprotein results and possibility of switching to lovenox, warfarin continue with eliquis and aspirin for now until hematology follow up Discharge Disposition: HOME WITH HOME HEALTH SERVICES
== END 2020-02-18 16:30 | disposition home health service (06) | DRG 177 ==
LOC: EC 11:31 → 3SCARD 12:54
PROVIDERS: ADMIT Internal Medicine; ATTEND Internal Medicine
PROC: B2161ZZ Fluoroscopy of Right and Left Heart using Low Osmolar Contrast (ICD-10-PCS; principal; 2020-02-12 09:30)
PROC: B246ZZ4 Ultrasonography of Right and Left Heart, Transesophageal (ICD-10-PCS; 2020-02-14)
DX: U07.1 COVID-19 (principal); J12.82 Pneumonia due to coronavirus disease 2019; I21.4 Non-ST elevation (NSTEMI) myocardial infarction; N17.0 Acute kidney failure with tubular necrosis; I26.99 Other pulmonary embolism without acute cor pulmonale; E87.2 Acidosis; J98.11 Atelectasis; J90 Pleural effusion, not elsewhere classified; D68.62 Lupus anticoagulant syndrome; I82.431 Acute embolism and thrombosis of right popliteal vein; I82.411 Acute embolism and thrombosis of right femoral vein; G40.409 Other generalized epilepsy and epileptic syndromes, not intractable, without status epilepticus; F41.9 Anxiety disorder, unspecified; E86.0 Dehydration; E87.5 Hyperkalemia; I25.10 Atherosclerotic heart disease of native coronary artery without angina pectoris; M19.90 Unspecified osteoarthritis, unspecified site; D64.9 Anemia, unspecified; I51.3 Intracardiac thrombosis, not elsewhere classified; Z79.82 Long term (current) use of aspirin; Z79.01 Long term (current) use of anticoagulants; Z79.899 Other long term (current) drug therapy; Z98.890 Other specified postprocedural states; Z98.42 Cataract extraction status, left eye; Z98.41 Cataract extraction status, right eye; Z80.9 Family history of malignant neoplasm, unspecified; Z86.711 Personal history of pulmonary embolism
CPT/HCPCS: 36415; 71045; 71046; 71250; 71275; 74177; 76700; 78582; 80053; 80061; 81001; 82150; 82607; 82728; 82746; 83540; 83550; 83605; 83615; 83690; 83921; 84145; 84484; 85025; 85045; 85379; 85598; 85610; 85613; 85652; 85730; 85732; 86146; 86147; 87040; 87635; 93005; 93306; 93312; 93320; 93325; 93454; 93970; 94640; 96360; 99291

== ENCOUNTER → 2020-03-26 | Outpatient (CLI) | payer MEDICARE, OTHER ==
--- NOTE | 2020-03-30 10:57 | PE ---
EXAMINATION TYPE: PET CT fusion skull to thigh DATE OF EXAM: 03/26/2020 CLINICAL HISTORY: 54-year-old male R91.1, solitary pulmonary nodule, initial staging. TECHNIQUE: Following the intravenous administration of 10.58 mCi of F-18 FDG, whole body images are performed from the skull base to the midthigh. Images are reviewed on the computer in the coronal, axial, and sagittal planes. Reconstructed rotating images are created on independent workstation and reviewed on the computer. A localization and attenuation correction CT is performed in conjunction with the PET scan. Glucose level: 66 mg/dL Injection site: Left AC COMPARISON: 02/15/2020 and 02/11/2020. FINDINGS: PET: Incidental scattered paraspinal muscular activity is noted in the neck. Additional symmetric FDG upta ke within the larynx likely product of phonation. Previous subpleural mass at the peripheral left base seen on 02/11/2020 measuring 3.6 x 2.0 cm has de creased in size now measuring 1.6 x 1.1 cm. No discrete FDG uptake. There is a new lobulated subpleural nodule posterior right base measuring 2.4 x 1.4 cm. No discrete F DG uptake. Given the bilateral pulmonary emboli seen on 02/15/2020, findings could reflect small areas of pulmonar y infarct. Additional CT follow-up recommended. Physiologic FDG uptake within the abdomen or pelvis. ATTENUATION CORRECTION CT: Mild mucosal thickening left maxillary sinus. Slight rightward nasal septal deviation. No cervical ly mphadenopathy. Orotracheal colon is clear. Heart normal size without pericardial effusion. Aorta normal caliber with conventional arch vessel b ranching anatomy. No thoracic lymphadenopathy by CT size criteria. Trace bilateral gynecomastia. Jana thing motion artifact in the visualized mid and lower lungs. No pleural effusion. The adrenal glands are clear. No hydronephrosis. No dilated small bowel, free fluid, or free air. No mesenteric or retroperitoneal lymphadenopathy. Redundant sigmoid colon. Moderate stool burden though more severe stool within the rectum which is distended up to 6.7 cm wide. Correlation should be made to exclude fecal impaction. Moderate circumferential bladder wall thickening. Prostate gland measures 3.9 cm wide. No abnormal fl uid collection in the pelvis or pelvic lymphadenopathy. Bones: Degenerative changes left SI joint. Facet arthropathy lower lumbar spine. Endplate spondylosis mid to lower thoracic spine. Additional spondylotic change in the visualized cervical spine. IMPRESSION: 1. The previous 3.6 x 2.0 cm subpleural mass at the peripheral left base has decreased in size curren tly measuring 1.6 x 1.1 cm and shows no discrete FDG uptake. Postinfectious/postinflammatory sequela is favored, possible area of resolving pulmonary infarct given the bilateral pulmonary emboli seen on 02/15/2020. Additional 6 month follow-up CT recommended. 2. New lobulated 2.4 x 1.4 cm posterior right basilar nodule could represent a second small area of p ulmonary infarct. Given the lack of FDG uptake and as the finding is new, neoplasm is considered unli jason. This should also be reassessed at the 6 month follow-up. 3. Incidental: Rectum distended with stool up to 6.7 cm wide. Correlate to exclude fecal impaction. 4. Incidental: Circumferential bladder wall thickening could reflect chronic bladder wall hypertrophy or cystitis. Clinically correlate.
== END | disposition home or self-care (01) ==
LOC: RADPETMAIN 12:43
PROVIDERS: ATTEND Internal Medicine Hematology & Oncology
DX: R91.1 Solitary pulmonary nodule (principal)
CPT/HCPCS: 78815; A9552

== ENCOUNTER → 2020-04-05 | Outpatient (CLI) | payer MEDICARE, OTHER ==
[2020-04-05 15:15] LABS: Basophils # (A) 0.05 X 10*3/uL (0.00-0.10); Basophils % (A) 0.8 %; Eosinophils # (A) 0.17 X 10*3/uL (0.04-0.35); Eosinophils % (A) 2.8 %; HCT 43.9 % (39.6-50.0); HGB 13.7 g/dL (13.0-17.0); Lymphocytes # (A) 1.97 X 10*3/uL (0.90-5.00); Lymphocytes % (A) 32.7 %; MCHC 31.2 g/dL (32.0-37.0); MCV 96.3 fL (80.0-97.0); Mean Platelet Volume 9.7 fL (9.5-12.2); Monocytes # (A) 0.76 X 10*3/uL (0.20-1.00); Monocytes % (A) 12.6 %; Neutrophils # (A) 3.03 X 10*3/uL (1.80-7.70); Neutrophils % (A) 50.4 %; Platelet Count 242 X 10*3/uL (140-440); RBC 4.56 X 10*6/uL (4.40-5.60); RDW 13.6 % (11.5-14.5); WBC 6.02 X 10*3/uL (4.50-10.00)
[2020-04-05 15:35] LABS: Valproic Acid (Depakene) 59.2 ug/mL (50.0-100.0)
[2020-04-05 15:36] LABS: ALT 17 U/L (10-49); AST 20 U/L (14-35); Albumin/Globulin Ratio 1.47 (1.60-3.17); Alkaline Phosphatase 105 U/L (41-126); Bilirubin, Conjugated <0.20 mg/dL (0.20-0.40); Total Bilirubin 0.3 mg/dL (0.2-1.2); Total Protein 7.4 g/dL (6.2-8.2)
== END | disposition home or self-care (01) ==
LOC: LABWHC1 08:36
PROVIDERS: ATTEND Nurse Practitioner Family
DX: G40.909 Epilepsy, unspecified, not intractable, without status epilepticus (principal); Z79.899 Other long term (current) drug therapy
CPT/HCPCS: 36415; 80076; 80164; 80186; 85025; 93005

== ENCOUNTER → 2020-07-29 | Outpatient (CLI) | payer MEDICARE, OTHER | END | disposition home or self-care (01) | LOC: LABWHC1 15:18 | PROVIDERS: ATTEND Internal Medicine Interventional Cardiology | DX: R94.31 Abnormal electrocardiogram [ECG] [EKG] (principal) | CPT/HCPCS: 36415; 93005 ==

== ENCOUNTER → 2020-07-29 | Outpatient (CLI) | payer MEDICARE, OTHER ==
--- NOTE | 2020-07-29 15:23 | US ---
EXAMINATION TYPE: US venous doppler duplex LE DATE OF EXAM: 07/29/2020 3:11 PM COMPARISON: US 02/13/2020 CLINICAL HISTORY: R22.42 Localized swelling, mass and lump, left low. History of bilateral DVT, patie nt currently takes blood thinners. SIDE PERFORMED: Bilateral TECHNIQUE: The lower extremity deep venous system is examined utilizing real time linear array sonog jud with graded compression, doppler sonography and color-flow sonography. VESSELS IMAGED: Common Femoral Vein Deep Femoral Vein Greater Saphenous Vein * Femoral Vein Popliteal Vein Proximal Calf Veins (* superficial vessels) Right Leg: Positive for non-occluding, chronic DVT within the popliteal vein to the right proximal c halfway vein Left Leg: Positive for non-occluding, chronic DVT within mid femoral vein to the left popliteal vein . IMPRESSION: Right Leg: Positive for non-occluding, chronic DVT within the popliteal vein to the right proximal c luh vein Left Leg: Positive for non-occluding, chronic DVT within mid femoral vein to the left popliteal vein .
--- NOTE | 2020-07-29 17:25 | CT ---
EXAMINATION TYPE: CT chest w con DATE OF EXAM: 07/29/2020 COMPARISON: CT chest 02/15/2020 HISTORY: covid history and coronary embolism CT DLP: 280 mGycm Automated exposure control for dose reduction was used. CONTRAST: CT scan of the chest is performed with IV Contrast, patient injected with 100 mL of Isovue 300. FINDINGS: LUNGS: The lungs are grossly clear, there is no concerning parenchymal mass or nodule identified. T here is no pleural effusion or pneumothorax seen. The tracheobronchial tree is patent. MEDIASTINUM: There are no greater than 1 cm hilar or mediastinal lymph nodes. No pericardial effusi on is seen. AORTA: No additional significant abnormality is seen. OTHER: No additional significant abnormality is seen. IMPRESSION: There is been resolution of patient's pulmonary emboli. The pleural effusions have resol nima.
== END | disposition home or self-care (01) ==
LOC: RADUSWWP 14:00
PROVIDERS: ATTEND Internal Medicine Hematology & Oncology
DX: I82.533 Chronic embolism and thrombosis of popliteal vein, bilateral (principal); Z86.711 Personal history of pulmonary embolism; Z86.16 Personal history of COVID-19
CPT/HCPCS: 93970; 71260; Q9967

== ENCOUNTER → 2021-01-10 | Outpatient (CLI) | payer MEDICARE, OTHER ==
--- NOTE | 2021-01-10 14:56 | US ---
EXAMINATION TYPE: US venous doppler duplex LE DATE OF EXAM: 01/10/2021 2:20 PM COMPARISON: US CLINICAL HISTORY: I82.5Z9 Chronic embolism and thrombosis of. Chronic DVT; takes blood thinner; no ne w symptoms SIDE PERFORMED: Bilateral TECHNIQUE: The lower extremity deep venous system is examined utilizing real time linear array sonog jud with graded compression, doppler sonography and color-flow sonography. VESSELS IMAGED: Common Femoral Vein Deep Femoral Vein Greater Saphenous Vein * Femoral Vein Popliteal Vein Small Saphenous Vein * Proximal Calf Veins (* superficial vessels) Right Leg: Chronic, non occluding DVT is noted in one of two upper calf veins. Left Leg: Chronic non occluding DVT is noted in upper through distal Left Femoral Vein, Popliteal, a nd one of two upper calf veins. IMPRESSION: Chronic nonoccluding DVT bilaterally.
== END | disposition home or self-care (01) ==
LOC: RADUSWWP 13:42
PROVIDERS: ATTEND Internal Medicine Hematology & Oncology
DX: G40.909 Epilepsy, unspecified, not intractable, without status epilepticus (principal); G80.8 Other cerebral palsy; H40.9 Unspecified glaucoma; F31.9 Bipolar disorder, unspecified
CPT/HCPCS: 93970

== ENCOUNTER → 2021-07-18 | Outpatient (CLI) | payer MEDICARE, OTHER ==
--- NOTE | 2021-07-18 18:26 | US ---
EXAMINATION TYPE: US venous doppler duplex LE DATE OF EXAM: 07/18/2021 3:13 PM COMPARISON: NONE CLINICAL HISTORY:56 year old male I82.5Z9 Chronic embolism and thrombosis. Pain SIDE PERFORMED: Bilateral TECHNIQUE: The lower extremity deep venous system is examined utilizing real time linear array sonog jud with graded compression, doppler sonography and color-flow sonography. FINDINGS: VESSELS IMAGED: Common Femoral Vein Deep Femoral Vein Greater Saphenous Vein * Femoral Vein Popliteal Vein Small Saphenous Vein * Proximal Calf Veins (* superficial vessels) Right Leg: Negative for DVT Left Leg: Positive for DVT popliteal vein. IMPRESSION: 1. Left lower extremity positive for DVT in the popliteal vein. This appears occlusive at the mid po pliteal vein and may represent a new thrombosis. Trickle flow in the lower popliteal vein suggesting more chronic clot. The previously seen thrombus higher in the left lower extremity appears to have cl eared. 2. No evidence for DVT within the right lower extremity imaged from the groin to the upper calf. Clot seen on 01/10/2021 has cleared in the interval.
== END | disposition home or self-care (01) ==
LOC: RADUSWWP 14:48
PROVIDERS: ATTEND Internal Medicine Hematology & Oncology
DX: I82.432 Acute embolism and thrombosis of left popliteal vein (principal)
CPT/HCPCS: 93970

== ENCOUNTER → 2022-01-16 | Outpatient (CLI) | payer MEDICARE, OTHER ==
--- NOTE | 2022-01-16 13:05 | US ---
EXAMINATION TYPE: US venous doppler duplex LE DATE OF EXAM: 01/16/2022 12:50 PM COMPARISON: NONE CLINICAL HISTORY: I82.5Z9 CHR EMBLSM AND THOMBOS. SIDE PERFORMED: TECHNIQUE: The lower extremity deep venous system is examined utilizing real time linear array sonog jud with graded compression, doppler sonography and color-flow sonography. VESSELS IMAGED: Common Femoral Vein Deep Femoral Vein Greater Saphenous Vein * Femoral Vein Popliteal Vein Small Saphenous Vein * Proximal Calf Veins (* superficial vessels) Patient unable to well abduct his legs making popliteal fossa technically difficult to scan. Patient on blood thinner. Right Leg: Negative for DVT Left Leg: Chronic DVT seen in this leg extending from proximal femoral vein through distal popliteal vein. IMPRESSION: Chronic DVT left lower extremity.
== END | disposition home or self-care (01) ==
LOC: RADUSWWP 12:07
PROVIDERS: ATTEND Internal Medicine Hematology & Oncology
DX: I82.512 Chronic embolism and thrombosis of left femoral vein (principal); I82.532 Chronic embolism and thrombosis of left popliteal vein
CPT/HCPCS: 93970

== ENCOUNTER → 2022-06-13 | Outpatient (CLI) | payer MEDICARE, OTHER ==
[2022-06-13 14:57] LABS: Basophils # (A) 0.03 X 10*3/uL (0.00-0.10); Basophils % (A) 0.5 %; Eosinophils # (A) 0.15 X 10*3/uL (0.04-0.35); Eosinophils % (A) 2.6 %; HCT 46.9 % (39.6-50.0); HGB 14.9 g/dL (13.0-17.0); Immature Grans, Automated 0.3 %; Lymphocytes % (A) 38.4 %; MCH 29.9 pg (27.0-32.0); MCHC 31.8 g/dL (32.0-37.0); MCV 94.2 fL (80.0-97.0); Mean Platelet Volume 9.8 fL (9.5-12.2); Monocytes # (A) 0.64 X 10*3/uL (0.20-1.00); Monocytes % (A) 11.2 %; NRBC Per 100 WBC 0 /100 WBCS (0.0-0.0); Neutrophils # (A) 2.69 X 10*3/uL (1.80-7.70); Platelet Count 212 X 10*3/uL (140-440); RBC 4.98 X 10*6/uL (4.40-5.60); RDW 13.2 % (11.5-14.5); WBC 5.73 X 10*3/uL (4.50-10.00)
[2022-06-13 16:08] LABS: ALT 23 U/L (10-49); AST 19 U/L (14-35); African American GFR (CKD) 98.9 (60.0-200.0); Albumin 4.2 g/dL (3.8-4.9); Albumin/Globulin Ratio 1.45 (1.60-3.17); Alkaline Phosphatase 113 U/L (41-126); BUN/Creat Ratio 22.44 Ratio (12.00-20.00); Blood Urea Nitrogen 22.1 mg/dL (9.0-27.0); Calcium 9.6 mg/dL (8.7-10.3); Carbon Dioxide 27.1 mmol/L (20.0-27.5); Chloride 107 mmol/L (96-109); Chol/HDL Ratio 3.97 Ratio; Globulin 2.9 g/dL (1.6-3.3); Glucose 85 mg/dL (70-110); LDL Cholesterol,Calculated 136.3 mg/dL (0.0-131.0); Non-African American GFR(CKD) 85.3 (60.0-200.0); Potassium 4.7 mmol/L (3.5-5.5); Sodium 144 mmol/L (135-145); Total Bilirubin <0.15 mg/dL (0.30-1.20)
[2022-06-13 16:51] LABS: Phenytoin (Dilantin) 9.6 ug/mL (10.0-20.0)
== END | disposition home or self-care (01) ==
LOC: LABWHC1 07:35
PROVIDERS: ATTEND Nurse Practitioner Gerontology
DX: G40.909 Epilepsy, unspecified, not intractable, without status epilepticus (principal); E78.5 Hyperlipidemia, unspecified; Z79.01 Long term (current) use of anticoagulants
CPT/HCPCS: 36415; 80053; 80061; 80165; 80185; 85025

== ENCOUNTER 2022-06-20 12:03 | Emergency (ER) | payer MEDICARE, OTHER ==
[2022-06-20 12:18] VITALS: PULSE 74; TEMP 98
[2022-06-20] MEDS ORDERED: LIDOCAINE 1% INJ 10MG/ML (30 ML VIAL-PF) SQ ONE (13:48)
--- NOTE | 2022-06-20 13:56 | CT ---
EXAMINATION TYPE: CT brain wo con DATE OF EXAM: 06/20/2022 COMPARISON: 07/22/2014 HISTORY: FALL, HEAD INJURY CT DLP: 1232.4 mGycm Automated exposure control for dose reduction was used. FINDINGS: There is moderate generalized degenerative change. There is no evidence of midline shift or mass effe ct. Prominent cisterna magna. No acute hemorrhage. Orbits are symmetric. Calvarium intact. Craniocervical junction. There is a cyst ic lesion involving left parietal convexity representing a large pacchionian granulation with erosion of the inner table of calvarium appears chronic and stable dating back to 2014. IMPRESSION: 1. DEGENERATIVE CHANGE WITH CENTRAL VENTRICULOMEGALY CAN BE ASSOCIATED WITH NORMAL PRESSURE HYDROCEPH ALUS OR HYDROCEPHALUS. FINDINGS ARE STABLE FROM 2014 AND APPEAR CHRONIC. 2. NO ACUTE INTRACRANIAL HEMORRHAGE OR MASS EFFECT.
--- NOTE | 2022-06-20 15:06 | ED ---
Fall HPI - General Chief Complaint: Fall Stated Complaint: fall Time Seen by Provider: 06/20/22 12:32 Source: patient Mode of arrival: ambulatory - History of Present Illness Initial Comments: Patient is a 56-year-old male presenting to the emergency room with his niece who is his guardian after a trip and fall while at his day program today. 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 He is complaining of pain at the site of his upper lip laceration but denies any generalized headache; he denies any chipped or loose in the teeth. He denies any injury to any other extremities. According to guardian and patient confirms patient has had multiple trip and falls over the year's with increased frequency in the past few years. Patient has a past medical history significant for seizure disorder denies any seizure causing his fall. He has developmental delay but is able to answer questions appropriately. - Related Data Home Medications Medication Instructions Recorded Confirmed Phenytoin Sodium Extended 200 mg PO HS@2200 07/22/14 02/10/20 [Dilantin] Propranolol [Inderal] 20 mg PO BID@0630,2200 07/22/14 02/10/20 Benztropine Mesylate [Cogentin] 0.5 mg PO BID@0630,0 02/10/20 02/10/20 Cimetidine [Tagamet] 400 mg PO BID@0630,2200 02/10/20 02/10/20 Divalproex [Depakote] 1,000 mg PO HS@2200 02/10/20 02/10/20 Divalproex [Depakote] 500 mg PO DAILY@0630 02/10/20 02/10/20 Ziprasidone [Geodon] 40 mg PO HS@2200 02/10/20 02/10/20 ziprasidone HCL [Geodon] 20 mg PO DAILY@0630 02/10/20 02/10/20 Previous Rx's Medication Instructions Recorded Apixaban [Eliquis Starter Pack 0 mg PO DIRECTED 30 Days #1 pack 02/16/20 (for VTE)] Amoxic-Pot Clav 875-125Mg 1 tab PO Q12HR 5 Days #10 tab 01/06/21 [Augmentin 875-125] Ascorbic Acid [Vitamin C] 1,000 mg PO DAILY 30 Days #60 tab 02/18/20 Aspirin 325 mg PO DAILY 30 Days #30 tab 02/18/20 Cholecalciferol [Vitamin D3 (25 1,000 unit PO DAILY 30 Days #30 tab 02/18/20 Mcg = 1000 Iu)] Furosemide [Lasix] 40 mg PO BID@0900,1600 30 Days #60 02/18/20 tab Nitroglycerin Sl Tabs [Nitrostat] 0.4 mg SUBLINGUAL Q5M PRN #30 tab 02/18/20 Pantoprazole [Protonix] 40 mg PO DAILY 30 Days #30 02/18/20 tablet. Zinc Sulfate [Orazinc] 220 mg PO DAILY 30 Days #30 cap 02/18/20 dexAMETHasone ORAL [Hexadrol] 6 mg PO DAILY 4 Days #12 tab 02/18/20 Allergies Allergy/AdvReac Type Severity Reaction Status Date / Time No Known Allergies Allergy Verified 06/20/22 12:18 Review of Systems ROS Statement: Those systems with pertinent positive or pertinent negative responses have been documented in the HPI. ROS Other: All systems not noted in ROS Statement are negative. Past Medical History Past Medical History: Deep Vein Thrombosis (DVT), Seizure Disorder Additional Past Medical History / Comment(s): LAST KNOWN GRAND MAL SEIZURE 1999- SISTER STATES PT HAS "ABSENT SEIZURES". MENTALLY CHALLENGED History of Any Multi-Drug Resistant Organisms: None Reported Past Surgical History: Hernia Repair Additional Past Surgical History / Comment(s): EGD. BILAT CATARACT SX Past Anesthesia/Blood Transfusion Reactions: No Reported Reaction Past Psychological History: Anxiety Smoking Status: Never smoker Past Alcohol Use History: None Reported Past Drug Use History: None Reported - Past Family History Father Family Medical History: Cancer Mother Family Medical History: Cancer General Exam Limitations: altered mental status (Developmental delay) General appearance: alert, in no apparent distress Head exam: Present: normocephalic Expanded Head exam: Present: laceration (Lip above vermilion border). Absent: hematoma, raccoon eyes, general tenderness Eye exam: Present: normal appearance, PERRL. Absent: scleral icterus, conjunctival injection, periorbital swelling, periorbital tenderness ENT exam: Present: mucous membranes moist, normal external ear exam, other (Lip laceration as above) Neck exam: Present: normal inspection, full ROM Respiratory exam: Absent: respiratory distress, accessory muscle use Cardiovascular Exam: Present: regular rate GI/Abdominal exam: Present: soft. Absent: distended, tenderness, guarding, rebound, rigid Extremities exam: Present: normal inspection, full ROM, pedal edema (Left lower extremity +1, chronic). Absent: tenderness Back exam: Present: normal inspection Neurological exam: Present: alert, oriented X3, other (Developmental delay.) Psychiatric exam: Present: flat affect Skin exam: Present: warm, dry, other (Laceration as above) Course Vital Signs 06/20/22 06/20/22 12:15 15:14 Temperature 98 F 98 F Pulse Rate 74 74 Respiratory 20 16 Rate Blood Pressure 127/88 128/75 O2 Sat by Pulse 99 98 Oximetry Procedures - Laceration Laceration #1 Indication: laceration Site: lip (Upper distal to nostril above vermilion border.) Size (cm): 2 Description: linear Depth: simple, single layer Anesthetic Used: lidocaine 1% Anesthesia Technique: local infiltration Pre-repair: wound explored, irrigated extensively Size of Sutures: 5-0 Number of Sutures: 3 Technique: simple, interrupted Patient Tolerated Procedure: well, no complications Medical Decision Making - Medical Decision Making Was pt. sent in by a medical professional or institution ([facility] Pagan, ESCALATOR CONSTRUCTOR, urgent care, hospital, or penitentiary...) When possible be specific @ -No Did you speak to anyone other than the patient for history (EMS, parent, family, police, friend...)? What history was obtained from this source @ -Yes, spoke with niece who is his guardian at the bedside regarding confirmation of details of HPI along with history of medical illnesses and medications. Did you review nursing and triage notes (agree or disagree)? Why? @ -I reviewed and agree with nursing and triage notes Were old charts reviewed (outside hosp., previous admission, EMS record, old EKG, old radiological studies, urgent care reports/EKG's, penitentiary records)? Report findings @ -No old charts were reviewed Differential Diagnosis (chest pain, altered mental status, abdominal pain women, abdominal pain men, vaginal bleeding, weakness, fever, dyspnea, syncope, headache, dizziness, GI bleed, back pain, seizure, CVA, palpatations, mental health, musculoskeletal)? @ -not applicable EKG interpreted by me (3pts min.). @ -None done X-rays interpreted by me (1pt min.). @ -None done CT interpreted by me (1pt min.). @ -CT brain without contrast: No acute intracranial hemorrhage or mass effect. Per radiologist chronic degenerative changes with central ventricular medically. U/S interpreted by me (1pt. min.). @ -None done What testing was considered but not performed or refused? (CT, X-rays, U/S, labs)? Why? @ -None What meds were considered but not given or refused? Why? @ -Analgesics offered and declined. Did you discuss the management of the patient with other professionals (professionals i.e. , PA, ESCALATOR CONSTRUCTOR, lab, RT, psych nurse, mental health social worker, credit representative, teacher, purchasing officer, nurse outreach case manager)? Give summary @ -No Was smoking cessation discussed for >3mins.? @ -No Was critical care preformed (if so, how long)? @ -No Were there social determinants of health that impacted care today? How? (Homelessness, low income, unemployed, alcoholism, drug addiction, transportation, low edu. Level, literacy, decrease access to med. care, [facility], rehab)? @ -No Was there de-escalation of care discussed even if they declined (Discuss DNR or withdrawal of care, Hospice)? DNR status @ -No What co-morbidities impacted this encounter? (DM, HTN, Smoking, COPD, CAD, Cancer, CVA, ARF, Chemo, Hep., AIDS, mental health diagnosis, sleep apnea, morbid obesity)? @ -None Was patient admitted / discharged? Hospital course, mention meds given and route, prescriptions, significant lab abnormalities, going to OR and other pertinent info. @ -56-year-old male presenting to the emergency room after tripping fall without loss of consciousness on anticoagulation. Due to anticoagulation will obtain CT of the brain. Lip laceration not through and through above the vermilion border will need suture closure after CT of the head. Analgesics offered and declined. CT of brain negative for acute findings. No indication for further diagnostic imaging or laboratory studies. Upper lip laceration closure completed without complications. Wound and suture care discussed with patient and guardian. Encouraged fall precautions. Questions and concerns answered. Return parameters to the emergency room discussed. Will discharge home in stable condition with guardian with sutures intact to laceration of lip after fall advising follow-up with primary care provider. Undiagnosed new problem with uncertain prognosis? @ -No Drug Therapy requiring intensive monitoring for toxicity (Heparin, Nitro, Insulin, Cardizem)? @ -No Were any procedures done? @ -Yes, see procedures for details. Diagnosis/symptom? @ -Lip laceration after fall Acute, or Chronic, or Acute on Chronic? @ -Acute Uncomplicated (without systemic symptoms) or Complicated (systemic symptoms)? @ -Uncomplicated Side effects of treatment? @ -No Exacerbation, Progression, or Severe Exacerbation? @ -No Poses a threat to life or bodily function? How? (Chest pain, [place], [place], pneumonia, PE, COPD, DKA, ARF, appy, cholecystitis, CVA, Diverticulitis, Homicidal, Suicidal, threat to staff... and all critical care pts) @ -No Case discussed Dr. Ramey. - Radiology Data Radiology results: report reviewed, image reviewed Disposition Clinical Impression: Fall, Laceration Disposition: HOME SELF-CARE Condition: Stable Instructions (If sedation given, give patient instructions): Care For Your Stitches (ED), Laceration (DC), Fall Prevention (ED) Additional Instructions: Please keep wound clean and dry. Monitor for signs and symptoms of infection and seek medical attention as appropriate if symptoms occur. Please return to the emergency department for suture removal in 7-10 days. Please return to the Emergency Department if symptoms worsen or any other concerns. Is patient prescribed a controlled substance at d/c from ED?: No Referrals: Zulay Esquivel NPC [Primary Care Provider] - 1-2 days Time of Disposition: 15:05
[2022-06-20 15:16] VITALS: BP 128/75; RESP 16
== END 2022-06-20 15:16 | disposition home or self-care (01) ==
LOC: EC 12:03
DX: S01.511A Laceration without foreign body of lip, initial encounter (principal); Z86.718 Personal history of other venous thrombosis and embolism; F41.9 Anxiety disorder, unspecified; Z79.899 Other long term (current) drug therapy; W01.0XXA Fall on same level from slipping, tripping and stumbling without subsequent striking against object, initial encounter
CPT/HCPCS: 70450; 99284; 12011; J2001

== ENCOUNTER → 2022-08-24 | Outpatient (CLI) | payer MEDICARE, OTHER ==
[2022-08-24 15:28] LABS: HCT 47.6 % (39.6-50.0); HGB 15.2 d/dL (12.0-15.0); MCH 30.2 pg (27.0-32.0); MCHC 31.9 d/dL (32.0-37.0); MCV 94.4 FL (80.0-97.0); Mean Platelet Volume 9.8 FL (9.5-12.2); NRBC Per 100 WBC 0 X 10*3/uL (0.00-0.01); Platelet Count 219 X 10*3/uL (140-440); RBC 5.04 X 10*6/uL (4.40-5.60); RDW 13.5 % (11.5-14.5); WBC 8.05 X 10*3/uL (4.50-10.00)
[2022-08-24 17:13] LABS: Valproic Acid (Depakene) 43.1 UG/ML (50.0-100.0)
== END | disposition home or self-care (01) ==
LOC: LABWHC1 08:45
PROVIDERS: ATTEND Psychiatry & Neurology Neurology
DX: G40.89 Other seizures (principal)
CPT/HCPCS: 36415; 80164; 80185; 85027

== ENCOUNTER → 2022-08-30 | Outpatient (CLI) | payer MEDICARE, OTHER ==
--- NOTE | 2022-08-30 14:59 | US ---
EXAMINATION TYPE: US venous doppler duplex LE LT DATE OF EXAM: 08/30/2022 2:45 PM COMPARISON: 01/16/2022 CLINICAL INDICATION: Male, 57 years old with history of G40.909 EPILEPSY, UNSP, NOT INTRACTAB G80.8 O THER CEREBRAL P; Pain and edema left leg. History of DVT. Patient on blood thinner SIDE PERFORMED: left TECHNIQUE: The lower extremity deep venous system is examined utilizing real time linear array sonog jud with graded compression, doppler sonography and color-flow sonography. VESSELS IMAGED: Common Femoral Vein Deep Femoral Vein Greater Saphenous Vein * Femoral Vein Popliteal Vein Small Saphenous Vein * Proximal Calf Veins (* superficial vessels) Left Leg: *Thready flow with partial compression left femoral vein extending into popliteal vein, as on prior exam IMPRESSION: 1. Chronic appearing left lower extremity deep venous thrombosis of the popliteal vein to the left fe moral vein.
== END | disposition home or self-care (01) ==
LOC: RADUSWWP 14:08
PROVIDERS: ATTEND Internal Medicine Hematology & Oncology
DX: I82.412 Acute embolism and thrombosis of left femoral vein (principal)

== ENCOUNTER → 2023-03-13 | Outpatient (CLI) | payer MEDICARE, OTHER ==
--- NOTE | 2023-03-13 12:58 | US ---
EXAMINATION TYPE: US venous doppler duplex LE LT DATE OF EXAM: 03/13/2023 12:40 PM COMPARISON: NONE CLINICAL INDICATION: Male, 57 years old with history of I80.299 PHLEBITIS AND THOMBOPHLB OF DEEP VESS ELS; DVT 6 months ago, still on thinners SIDE PERFORMED: Left TECHNIQUE: The lower extremity deep venous system is examined utilizing real time linear array sonog jud with graded compression, doppler sonography and color-flow sonography. VESSELS IMAGED: Common Femoral Vein Deep Femoral Vein Greater Saphenous Vein * Femoral Vein Popliteal Vein Small Saphenous Vein * Proximal Calf Veins (* superficial vessels) Left Leg: Echogenic debris within left femoral and popliteal vein that do not fully compress, good b lood flow seen within veins, probable chronic process IMPRESSION: Probable chronic DVT as described.
== END | disposition home or self-care (01) ==
LOC: RADUSWWP 12:10
PROVIDERS: ATTEND Internal Medicine Hematology & Oncology
DX: I80.299 Phlebitis and thrombophlebitis of other deep vessels of unspecified lower extremity (principal); F31.9 Bipolar disorder, unspecified; G40.909 Epilepsy, unspecified, not intractable, without status epilepticus; G80.8 Other cerebral palsy; H40.9 Unspecified glaucoma; Z79.01 Long term (current) use of anticoagulants

== ENCOUNTER → 2023-11-12 | Outpatient (CLI) | payer MEDICARE, OTHER | END | disposition home or self-care (01) | LOC: LABWHC1 08:15 | PROVIDERS: ATTEND Family Medicine | DX: G40.909 Epilepsy, unspecified, not intractable, without status epilepticus (principal) | CPT/HCPCS: 36415; 80165; 80186 ==

== ENCOUNTER 2024-02-18 11:25 | Emergency (ER) | payer MEDICARE, OTHER ==
[2024-02-18 11:58] VITALS: BP 127/85; PULSE 71; RESP 22; TEMP 97.8
--- NOTE | 2024-02-18 12:34 | ED ---
ENT HPI - General Source: patient, family, RN notes reviewed Mode of arrival: ambulatory Limitations: no limitations <Mckenzie Jones - Last Filed: 02/18/24 12:33> - General Source: patient, family, RN notes reviewed Mode of arrival: ambulatory Limitations: no limitations <Cresencio Willett - Last Filed: 02/19/24 21:00> - General Chief complaint: ENT Stated complaint: L Ear Bleeding Time Seen by Provider: 02/18/24 12:33 - History of Present Illness Initial comments: Quick note: 58-year-old male presented to the ER for evaluation of left ear bleeding. Patient lives in assisted apartment complex. Patient noted to have bleeding yesterday that subsided. Patient woke up with blood on his pillow. Patient is on Eliquis. No pain no hearing loss. (Mckenzie Jones) 58-year-old male presents emergency [place] complaint of left ear bleeding. Patient does have some underlying developmental delay lives in assisted department. Patient states he was digging at his ear patient is on Eliquis. He denies any pain or hearing loss. (Cresencio Willett) - Related Data Home Medications Medication Instructions Recorded Confirmed Propranolol [Inderal] 20 mg PO BID@0630,2200 07/22/14 10/09/23 Divalproex [Depakote] 1,000 mg PO HS@2200 02/10/20 10/09/23 Divalproex [Depakote] 750 mg PO DAILY@0630 02/10/20 10/09/23 Ziprasidone [Geodon] 40 mg PO DAILY 02/10/20 10/09/23 ziprasidone HCL [Geodon] 60 mg PO HS 02/10/20 10/09/23 Apixaban [Eliquis] 5 mg PO BID 10/08/23 10/09/23 Benztropine Mesylate [Cogentin] 1 mg PO DAILY 10/08/23 10/09/23 Famotidine 20 mg PO BID 10/08/23 10/09/23 Furosemide [Lasix] 40 mg PO DAILY 10/08/23 10/09/23 Phenytoin Sodium Extended 300 mg PO 10/08/23 10/08/23 Phenytoin Sodium Extended 500 mg PO 10/08/23 hydrOXYzine HCL [Hydroxyzine HCl] 25 mg PO DAILY PRN 10/08/23 10/09/23 Allergies Allergy/AdvReac Type Severity Reaction Status Date / Time No Known Allergies Allergy Verified 02/18/24 11:58 Review of Systems ROS Other: All systems not noted in ROS Statement are negative. <Mckenzie Jones - Last Filed: 02/18/24 12:33> ROS Other: All systems not noted in ROS Statement are negative. <Cresencio Willett - Last Filed: 02/19/24 21:00> ROS Statement: Those systems with pertinent positive or pertinent negative responses have been documented in the HPI. Past Medical History Past Medical History: Deep Vein Thrombosis (DVT), Seizure Disorder Additional Past Medical History / Comment(s): LAST KNOWN GRAND MAL SEIZURE 1999- SISTER STATES PT HAS "ABSENT SEIZURES". MENTALLY CHALLENGED History of Any Multi-Drug Resistant Organisms: None Reported Past Surgical History: Hernia Repair Additional Past Surgical History / Comment(s): EGD. BILAT CATARACT SX Past Anesthesia/Blood Transfusion Reactions: No Reported Reaction Past Psychological History: Anxiety Smoking Status: Never smoker Past Alcohol Use History: None Reported Past Drug Use History: None Reported - Past Family History Father Family Medical History: Cancer Mother Family Medical History: Cancer <Mckenzie Jones - Last Filed: 02/18/24 12:33> General Exam Limitations: no limitations <Mckenzie Jones - Last Filed: 02/18/24 12:33> Limitations: no limitations General appearance: alert, in no apparent distress Head exam: Present: atraumatic, normocephalic, normal inspection Eye exam: Present: normal appearance, PERRL, EOMI. Absent: scleral icterus, conjunctival injection, periorbital swelling ENT exam: Present: normal oropharynx, mucous membranes moist, TM's normal bilaterally. Absent: normal exam, normal external ear exam (There is dried blood noticed in the left EAC) Neck exam: Present: normal inspection. Absent: tenderness, meningismus, lymphadenopathy Respiratory exam: Present: normal lung sounds bilaterally. Absent: respiratory distress, wheezes, rales, rhonchi, stridor Cardiovascular Exam: Present: regular rate, normal rhythm, normal heart sounds. Absent: systolic murmur, diastolic murmur, rubs, gallop, clicks <Cresencio Willett - Last Filed: 02/19/24 21:00> - General Exam Comments Initial Comments: Visual Physical Exam Vital signs reviewed General: Well-appearing, nontoxic, no acute distress. Head: Normocephalic, atraumatic Eyes: PERRLA, EOMI ENT: Airway patent, dried blood surrounding left ear Chest: Nonlabored breathing Skin: No visual rash, normal skin tone Neuro: Alert and oriented 3 Musculoskeletal: No gross abnormalities (Mckenzie Jones) Course Vital Signs 02/18/24 11:54 Temperature 97.8 F Pulse Rate 71 Respiratory 22 Rate Blood Pressure 127/85 O2 Sat by Pulse 97 Oximetry Medical Decision Making <Mckenzie Jones - Last Filed: 02/18/24 12:33> <Cresencio Willett - Last Filed: 02/19/24 21:00> - Medical Decision Making I performed the quick note portion of this chart. Electronically signed by Mckenzie Jones PA-C (Mckenzie Jones) Was pt. sent in by a medical professional or institution ([facility], MEAT PUMPER, urgent care, hospital, or half-way...) When possible be specific @ -No Did you speak to anyone other than the patient for history (EMS, parent, family, police, friend...)? What history was obtained from this source @ -No Did you review nursing and triage notes (agree or disagree)? Why? @ -I reviewed and agree with nursing and triage notes Were old charts reviewed (outside hosp., previous admission, EMS record, old EKG, old radiological studies, urgent care reports/EKG's, half-way records)? Report findings @ -No old charts were reviewed Differential Diagnosis (chest pain, altered mental status, abdominal pain women, abdominal pain men, vaginal bleeding, weakness, fever, dyspnea, syncope, headache, dizziness, GI bleed, back pain, seizure, CVA, palpatations, mental health, musculoskeletal)? @ -Otitis external otitis media, EAC trauma EKG interpreted by me (3pts min.). @None X-rays interpreted by me (1pt min.). @ -None done CT interpreted by me (1pt min.). @ -None done U/S interpreted by me (1pt. min.). @ -None done What testing was considered but not performed or refused? (CT, X-rays, U/S, labs)? Why? @ -None What meds were considered but not given or refused? Why? @ -None Did you discuss the management of the patient with other professionals (professionals i.e. , PA, MEAT PUMPER, lab, RT, psych nurse, social media analyst, field technical assistant, teacher, chief knowledge officer, supportive employment case manager)? Give summary @ -No Was smoking cessation discussed for >3mins.? @ -No Was critical care preformed (if so, how long)? @ -No Were there social determinants of health that impacted care today? How? (Homelessness, low income, unemployed, alcoholism, drug addiction, transportation, low edu. Level, literacy, decrease access to med. care, prison, rehab)? @ -No Was there de-escalation of care discussed even if they declined (Discuss DNR or withdrawal of care, Hospice)? DNR status @ -No What co-morbidities impacted this encounter? (DM, HTN, Smoking, COPD, CAD, Cancer, CVA, ARF, Chemo, Hep., AIDS, mental health diagnosis, sleep apnea, morbid obesity)? @ -None Was patient admitted / discharged? Hospital course, mention meds given and route, prescriptions, significant lab abnormalities, going to OR and other pertinent info. @ -Discharged patient appears to have abrasion, area of bleeding in the left EAC TM not show any acute process patient placed in eardrops will follow-up with ENT. Undiagnosed new problem with uncertain prognosis? @ -No Drug Therapy requiring intensive monitoring for toxicity (Heparin, Nitro, Insulin, Cardizem)? @ -No Were any procedures done? @ -No Diagnosis/symptom? @ -Trace externa, EAC trauma Acute, or Chronic, or Acute on Chronic? @ -Acute Uncomplicated (without systemic symptoms) or Complicated (systemic symptoms)? @ -Uncomplicated Side effects of treatment? @ -No Exacerbation, Progression, or Severe Exacerbation? @ -No Poses a threat to life or bodily function? How? (Chest pain, [place], [place], pneumonia, PE, COPD, DKA, ARF, appy, cholecystitis, CVA, Diverticulitis, Homicidal, Suicidal, threat to staff... and all critical care pts) @ -No (Cresencio Willett) Disposition <Mckenzie Jones - Last Filed: 02/18/24 12:33> Is patient prescribed a controlled substance at d/c from ED?: No Time of Disposition: 13:14 <Cresencio Willett - Last Filed: 02/19/24 21:00> Clinical Impression: Otitis externa Disposition: HOME SELF-CARE Condition: Stable Instructions (If sedation given, give patient instructions): Earache (ED) Additional Instructions: Use eardrops 4 drops twice daily for 7 days. Please return to the Emergency Department if symptoms worsen or any other concerns. Referrals: Frida Quintanilla DO [Primary Care Provider] - 1-2 days Mike Mahmood MD [STAFF PHYSICIAN] - 1-2 days
[2024-02-18] MEDS: CIPROFLOXACIN-DEXAMETH 0.3-0.1% DROPS 7.5 ML BTL LEFT EAR STA (13:38)
== END 2024-02-18 13:40 | disposition home or self-care (01) ==
LOC: EC 11:25
DX: H60.92 Unspecified otitis externa, left ear (principal)
CPT/HCPCS: 99282